=== PATIENT | female | born 1960 | race Caucasian/White ===

== ENCOUNTER → 2016-05-13 | Outpatient (CLI) | payer MEDICARE ==
--- NOTE | 2016-05-13 09:30 | REP ---
Clinical: Acute shortness of breath . Comparison: 11/07/2013 . Technique: PA and lateral. Findings: The mediastinum and cardiac silhouette are normal. The lung taylor are clear and without acute consolidation, effusion, or pneumothorax. The skeletal structures are intact and normal. Impression: 1. No acute cardiopulmonary process.
== END ==
LOC: M CLY 08:51
PROVIDERS: ATTEND Physician Assistant
DX: J22 Unspecified acute lower respiratory infection (principal)

== ENCOUNTER → 2016-05-18 | Outpatient (REF) | payer MEDICARE ==
[2016-05-18 18:42] LABS: ALBUMIN 3.3 GM/DL (3.2-5.2); ALBUMIN/GLOBULIN RATIO 0.73 (1.00-1.93); ALKALINE PHOSPHATASE 135 U/L (45-117); ALT/SGPT 15 U/L (12-78); ANION GAP 7 MEQ/L (8-16); AST/SGOT 11 U/L (15-37); BILIRUBIN,TOTAL 0.3 MG/DL (0.2-1.0); BLOOD UREA NITROGEN 11 MG/DL (7-18); CALCIUM LEVEL 8.3 MG/DL (8.5-10.1); CARBON DIOXIDE LEVEL 26 MEQ/L (21-32); CHLORIDE LEVEL 106 MEQ/L (98-107); CHOLESTEROL LEVEL 205 MG/DL (<200); GLOMERULAR FILTRATION RATE > 60.0 (>51); GLUCOSE, FASTING 77 MG/DL (70-105); POTASSIUM SERUM 4.4 MEQ/L (3.5-5.1); SODIUM LEVEL 139 MEQ/L (136-145); TOTAL PROTEIN 7.8 GM/DL (6.4-8.2); TRIGLYCERIDES LEVEL 99 MG/DL (<150)
[2016-05-18 19:13] LABS: BASO # 0.1 K/mm3 (0.0-0.2); BASO % 1.4 % (0.0-1.0); EOS # 0.2 K/mm3 (0.0-0.50); EOS % 3.1 % (0.0-3.0); LARGE UNSTAINED CELL # 0.1 K/mm3 (0.0-0.4); LARGE UNSTAINED CELL % 1.9 % (0.0-4.0); LYMPH # 1.7 K/mm3 (1.5-4.5); LYMPH % 26.2 % (24.0-44.0); MEAN CORPUSCULAR HEMOGLOBIN 31.3 pg (27.0-33.0); MEAN CORPUSCULAR HGB CONC 32.9 g/dl (32.0-36.5); MEAN CORPUSCULAR VOLUME 95.2 fl (80.0-96.0); MONO # 0.3 K/mm3 (0.0-0.8); MONO % 5.2 % (0.0-5.0); NEUTROPHILS # 3.7 K/mm3 (1.8-7.7); NEUTROPHILS % 62.2 % (36.0-66.0); PLATELET COUNT, AUTOMATED 258 k/mm3 (150-450)
== END ==
LOC: M SFHCCAPE 07:33
PROVIDERS: ATTEND Physician Assistant
DX: E78.2 Mixed hyperlipidemia (principal)

== ENCOUNTER → 2016-06-29 | Outpatient (CLI) | payer MEDICARE ==
--- NOTE | 2016-06-29 11:20 | REPMRS ---
Patient History The patient states she had a clinical breast exam in June 2016. Patient is postmenopausal. No known family history of cancer. Digital Mammo Screening Bilat: June 29, 2016 - Exam #: [id number] Bilateral CC and MLO view(s) were taken. Technologist: Rachel Huber, Technologist No prior studies available for comparison. FINDINGS: There are scattered fibroglandular densities. There is no evidence of dominant mass, architectural distortion, or clustered microcalcification typical of malignancy. ASSESSMENT: BI-RADS/ACR category 1 mammogram. Negative. Recommendation Routine screening mammogram of both breasts in 1 year (for women over age 40). This mammogram was interpreted with the aid of an FDA-approved computer-aided dectection system. Electronically Signed By: Fabio Bravo MD 06/29/16 9502
== END ==
LOC: M RAD 09:58
PROVIDERS: ATTEND Physician Assistant
DX: Z12.31 Encounter for screening mammogram for malignant neoplasm of breast (principal)

== ENCOUNTER → 2016-07-19 | Outpatient (CLI) | payer MEDICARE ==
--- NOTE | 2016-07-19 11:44 | REP ---
Clinical: Lung screening. History smoking. Technique: Axial, noncontrast low-dose imaging from the thoracic inlet to the upper abdomen using lung screening technique. Comparison: Chest CT dated 11/07/2013. Findings: Mild emphysematous changes are suggested. Small focal linear scarring in the lingula again noted. No significant pulmonary parenchymal consolidation, nodule or mass lesion. No pleural effusion. Mediastinum is grossly normal. Impression: Lung-RADS category I-S. Benign findings and no significant nodule with mild to moderate emphysematous changes. Signed by Chalo Bills MD 07/19/2016 11:36 A
== END ==
LOC: M RAD 11:03
PROVIDERS: ATTEND Physician Assistant
DX: Z12.2 Encounter for screening for malignant neoplasm of respiratory organs (principal); F17.210 Nicotine dependence, cigarettes, uncomplicated; J43.9 Emphysema, unspecified

== ENCOUNTER → 2016-10-04 | Outpatient (REF) | payer MEDICARE | LOC: M SFHCCAPE 11:48 | PROVIDERS: ATTEND Physician Assistant | DX: Z01.419 Encounter for gynecological examination (general) (routine) without abnormal findings (principal); M25.562 Pain in left knee; M71.22 Synovial cyst of popliteal space [Baker], left knee | CPT/HCPCS: 87624; G0123; G0463 ==

== ENCOUNTER → 2017-03-17 | Outpatient (CLI) | payer MEDICARE ==
--- NOTE | 2017-03-17 11:21 | REP ---
Clinical: Acute bronchitis . Comparison: 05/13/2016 . Technique: PA and lateral. Findings: The mediastinum and cardiac silhouette are normal. The lung taylor are clear and without acute consolidation, effusion, or pneumothorax. The skeletal structures are intact and normal. Impression: 1. No acute cardiopulmonary process. Signed by Chalo Bills MD 03/17/2017 11:11 A
== END ==
LOC: M WUC 10:44
PROVIDERS: ATTEND Physician Assistant
DX: J20.9 Acute bronchitis, unspecified (principal)

== ENCOUNTER 2017-09-12 12:41 | Emergency (ER) | payer MEDICARE ==
[2017-09-12 15:33] LABS: BASO % 0.6 % (0.0-1.0); EOS # 0.2 10^3/uL (0.0-0.50); EOS % 3.3 % (0.0-3.0); HEMATOCRIT 37.3 % (36.0-47.0); HEMOGLOBIN 12.9 g/dl (12.0-15.5); IMMATURE GRANULOCYTE % 0.2 % (0-3.0); LYMPH # 1.7 10^3/uL (1.5-4.5); LYMPH % 33.8 % (24.0-44.0); MEAN CORPUSCULAR HEMOGLOBIN 31.8 pg (27.0-33.0); MEAN CORPUSCULAR HGB CONC 34.6 g/dl (32.0-36.5); MEAN CORPUSCULAR VOLUME 91.9 fl (80.0-96.0); MONO # 0.4 10^3/uL (0.0-0.8); MONO % 6.9 % (0.0-5.0); NEUTROPHILS # 2.8 10^3/uL (1.8-7.7); NEUTROPHILS % 55.2 % (36.0-66.0); PLATELET COUNT, AUTOMATED 268 10^3/uL (150-450); RED BLOOD COUNT 4.06 10^6/uL (4.00-5.40); RED CELL DISTRIBUTION WIDTH 12.9 % (11.5-14.5); WHITE BLOOD COUNT 5.1 10^3/uL (4.0-10.0)
[2017-09-12 15:45] LABS: INR 0.97
[2017-09-12 15:47] LABS: PARTIAL THROMBOPLASTIN TIME 26.5 SECONDS (26.8-37.9)
[2017-09-12 16:03] LABS: ALBUMIN 3.5 GM/DL (3.2-5.2); ALBUMIN/GLOBULIN RATIO 0.83 (1.00-1.93); ALKALINE PHOSPHATASE 124 U/L (45-117); ALT/SGPT 14 U/L (12-78); ANION GAP 6 MEQ/L (8-16); AST/SGOT 12 U/L (7-37); BILIRUBIN,DIRECT < 0.1 MG/DL (0.0-0.2); BILIRUBIN,TOTAL 0.3 MG/DL (0.2-1.0); BLOOD UREA NITROGEN 8 MG/DL (7-18); CALCIUM LEVEL 8.5 MG/DL (8.5-10.1); CARBON DIOXIDE LEVEL 26 MEQ/L (21-32); CHLORIDE LEVEL 110 MEQ/L (98-107); CK-MB VALUE MASS 1.2 NG/ML (<3.6); CPK CREATINE PHOSPHOKINASE 52 U/L (26-192); GLOMERULAR FILTRATION RATE > 60.0 (>51); GLUCOSE, FASTING 78 MG/DL (70-100); SODIUM LEVEL 142 MEQ/L (136-145); TOTAL PROTEIN 7.7 GM/DL (6.4-8.2); TROPONIN I < 0.02 NG/ML (< 0.10)
[2017-09-12] MEDS ORDERED: ISOVUE-370 76% 100ML VIAL (Q9967) As Ordered (16:25)
[2017-09-13 11:52] LABS: BEDSIDE GLUCOSE 87 MG/DL (70-105)
== END 2017-09-12 18:04 | disposition home or self-care (01) ==
LOC: M ED 12:41
DX: J43.9 Emphysema, unspecified (principal); M71.22 Synovial cyst of popliteal space [Baker], left knee; M06.9 Rheumatoid arthritis, unspecified; F17.200 Nicotine dependence, unspecified, uncomplicated; Z98.890 Other specified postprocedural states; Z79.899 Other long term (current) drug therapy
CPT/HCPCS: Q9967

== ENCOUNTER → 2017-12-22 | Outpatient (REF) | payer MEDICARE ==
[2017-12-22 17:47] LABS: BASO % 0.4 % (0.0-1.0); EOS # 0.2 10^3/uL (0.0-0.50); HEMATOCRIT 35.9 % (36.0-47.0); IMMATURE GRANULOCYTE % 0.2 % (0-3.0); LYMPH # 1.7 10^3/uL (1.5-4.5); LYMPH % 34.9 % (24.0-44.0); MEAN CORPUSCULAR HEMOGLOBIN 31.7 pg (27.0-33.0); MEAN CORPUSCULAR HGB CONC 33.4 g/dl (32.0-36.5); MEAN CORPUSCULAR VOLUME 94.7 fl (80.0-96.0); MONO # 0.4 10^3/uL (0.0-0.8); MONO % 7.2 % (0.0-5.0); NEUTROPHILS # 2.7 10^3/uL (1.8-7.7); NEUTROPHILS % 54.3 % (36.0-66.0); PLATELET COUNT, AUTOMATED 289 10^3/uL (150-450); RED BLOOD COUNT 3.79 10^6/uL (4.00-5.40); RED CELL DISTRIBUTION WIDTH 12.9 % (11.5-14.5)
[2017-12-27 10:17] LABS: ASPERGILLUS FUMIGATUS AB Negative (Negative); AUREOBASIDIUM PULLULANS Negative (Negative); MICROPOLYSPORA FAENI AB Negative (Negative); PIGEON SERUM AB Negative (Negative); THERMOACTINOMYCES SACCHARI Negative (Negative); THERMOACTINOMYCES VULGARIS Negative (Negative)
== END ==
LOC: M LAB REF 16:51
DX: J43.9 Emphysema, unspecified (principal)
CPT/HCPCS: 86606

== ENCOUNTER → 2018-01-15 | Outpatient (CLI) | payer MEDICARE | LOC: M SLEEP 20:07 | DX: G47.33 Obstructive sleep apnea (adult) (pediatric) (principal); G47.61 Periodic limb movement disorder | CPT/HCPCS: 95810 ==

== ENCOUNTER → 2018-01-31 | Outpatient (REF) | payer MEDICARE ==
[2018-01-31 18:42] LABS: IMMUNOGLOBULIN G 1650 MG/DL (681-1648); IMMUNOGLOBULIN M 182 MG/DL (40-230)
[2018-02-06 00:07] LABS: A1A FOR PHENOTYPE 159 mg/dL (90-200)
== END ==
LOC: M LAB REF 17:11
DX: J43.9 Emphysema, unspecified (principal)
CPT/HCPCS: 82103

== ENCOUNTER → 2018-03-19 | Outpatient (REF) | payer MEDICARE ==
[2018-03-19 17:04] LABS: BASO % 0.7 % (0.0-1.0); EOS # 0.2 10^3/uL (0.0-0.50); HEMATOCRIT 38.7 % (36.0-47.0); HEMOGLOBIN 12.9 g/dl (12.0-15.5); IMMATURE GRANULOCYTE % 0.2 % (0-3.0); LYMPH # 1.8 10^3/uL (1.5-4.5); LYMPH % 32.6 % (24.0-44.0); MEAN CORPUSCULAR HEMOGLOBIN 31.5 pg (27.0-33.0); MEAN CORPUSCULAR HGB CONC 33.3 g/dl (32.0-36.5); MEAN CORPUSCULAR VOLUME 94.6 fl (80.0-96.0); MONO # 0.4 10^3/uL (0.0-0.8); MONO % 6.6 % (0.0-5.0); NEUTROPHILS # 3.2 10^3/uL (1.8-7.7); NEUTROPHILS % 56.9 % (36.0-66.0); PLATELET COUNT, AUTOMATED 278 10^3/uL (150-450); RED BLOOD COUNT 4.09 10^6/uL (4.00-5.40); RED CELL DISTRIBUTION WIDTH 13.1 % (11.5-14.5); WHITE BLOOD COUNT 5.6 10^3/uL (4.0-10.0)
[2018-03-19 17:18] LABS: ALBUMIN 3.5 GM/DL (3.2-5.2); ALBUMIN/GLOBULIN RATIO 0.81 (1.00-1.93); ALKALINE PHOSPHATASE 138 U/L (45-117); ALT/SGPT 18 U/L (12-78); ANION GAP 6 MEQ/L (8-16); AST/SGOT 9 U/L (7-37); BILIRUBIN,TOTAL 0.3 MG/DL (0.2-1.0); BLOOD UREA NITROGEN 10 MG/DL (7-18); C REACTIVE PROTEIN QUANTITATIV 1.19 MG/DL (0.00-0.30); CALCIUM LEVEL 8.7 MG/DL (8.5-10.1); CARBON DIOXIDE LEVEL 27 MEQ/L (21-32); CHLORIDE LEVEL 105 MEQ/L (98-107); GLOMERULAR FILTRATION RATE > 60.0 (>51); GLUCOSE, FASTING 84 MG/DL (70-100); POTASSIUM SERUM 3.9 MEQ/L (3.5-5.1); SODIUM LEVEL 138 MEQ/L (136-145); TOTAL PROTEIN 7.8 GM/DL (6.4-8.2); URIC ACID 2.7 MG/DL (2.6-6.0)
[2018-03-19 18:11] LABS: ERYTHROCYTE SEDIMENTATION RATE 56 mm/hr (0-30)
== END ==
LOC: M SFHCLERA 11:56
DX: M05.79 Rheumatoid arthritis with rheumatoid factor of multiple sites without organ or systems involvement (principal)
CPT/HCPCS: 84550

== ENCOUNTER → 2018-03-19 | Outpatient (CLI) | payer MEDICARE | LOC: M LRY 12:27 | DX: M25.762 Osteophyte, left knee (principal); M19.041 Primary osteoarthritis, right hand; M19.042 Primary osteoarthritis, left hand; M05.79 Rheumatoid arthritis with rheumatoid factor of multiple sites without organ or systems involvement | CPT/HCPCS: 73080; 84550 ==

== ENCOUNTER → 2018-04-11 | Outpatient (REF) | payer MEDICARE ==
[2018-04-11 18:35] LABS: BASO % 0.6 % (0.0-1.0); EOS # 0.1 10^3/uL (0.0-0.50); EOS % 1.9 % (0.0-3.0); HEMATOCRIT 40.7 % (36.0-47.0); HEMOGLOBIN 13.5 g/dl (12.0-15.5); IMMATURE GRANULOCYTE % 0.3 % (0-3.0); LYMPH # 1.9 10^3/uL (1.5-4.5); LYMPH % 28.7 % (24.0-44.0); MEAN CORPUSCULAR HEMOGLOBIN 31.9 pg (27.0-33.0); MEAN CORPUSCULAR HGB CONC 33.2 g/dl (32.0-36.5); MEAN CORPUSCULAR VOLUME 96.2 fl (80.0-96.0); MONO # 0.6 10^3/uL (0.0-0.8); MONO % 8.2 % (0.0-5.0); NEUTROPHILS % 60.3 % (36.0-66.0); PLATELET COUNT, AUTOMATED 263 10^3/uL (150-450); RED BLOOD COUNT 4.23 10^6/uL (4.00-5.40); RED CELL DISTRIBUTION WIDTH 13.7 % (11.5-14.5); WHITE BLOOD COUNT 6.7 10^3/uL (4.0-10.0)
[2018-04-11 19:00] LABS: ALBUMIN 3.6 GM/DL (3.2-5.2); ALBUMIN/GLOBULIN RATIO 0.92 (1.00-1.93); ALKALINE PHOSPHATASE 108 U/L (45-117); ALT/SGPT 18 U/L (12-78); ANION GAP 5 MEQ/L (8-16); AST/SGOT 7 U/L (7-37); BILIRUBIN,TOTAL 0.3 MG/DL (0.2-1.0); BLOOD UREA NITROGEN 14 MG/DL (7-18); C REACTIVE PROTEIN QUANTITATIV 0.36 MG/DL (0.00-0.30); CALCIUM LEVEL 8.5 MG/DL (8.5-10.1); CARBON DIOXIDE LEVEL 31 MEQ/L (21-32); CHLORIDE LEVEL 105 MEQ/L (98-107); CREATININE FOR GFR 0.85 MG/DL (0.55-1.30); GAMMA GLUTAMYLTRANSPEPTIDASE 16 U/L (5-55); GLOMERULAR FILTRATION RATE > 60.0 (>51); GLUCOSE, FASTING 70 MG/DL (70-100); POTASSIUM SERUM 4.4 MEQ/L (3.5-5.1); SODIUM LEVEL 141 MEQ/L (136-145); TOTAL PROTEIN 7.5 GM/DL (6.4-8.2)
[2018-04-11 20:15] LABS: ERYTHROCYTE SEDIMENTATION RATE 32 mm/hr (0-30)
== END ==
LOC: M SFHCPLAZ 15:27
DX: M05.79 Rheumatoid arthritis with rheumatoid factor of multiple sites without organ or systems involvement (principal)
CPT/HCPCS: 82977

== ENCOUNTER → 2018-06-12 | Outpatient (REF) | payer MEDICARE ==
[~2018-06-12] MED LIST: MELO15TA28 PO; METH2.5T48 PO; VENTAER INH
[2018-06-12 17:09] LABS: IMMUNOGLOBULIN G 1850 MG/DL (681-1648)
[2018-06-14 13:58] LABS: ALBUMIN % 48.2 % (55.8-66.1); ALPHA-1-GLOBULIN % 4.4 % (2.9-4.9); ALPHA-2-GLOBULINS % 10.2 % (7.1-11.8); BETA-1-GLOBULINS % 6.4 % (4.7-7.2); BETA-2-GLOBULINS % 7.3 % (3.2-6.5); GAMMA GLOBULIN % 23.5 % (11.1-18.8)
[2018-06-14 13:59] LABS: ALBUMIN 3.86 GM/DL (3.29-5.55); ALPHA-1-GLOBULINS 0.35 GM/DL (0.17-0.41); ALPHA-2-GLOBULINS 0.82 GM/DL (0.42-0.99); BETA-1-GLOBULINS 0.51 GM/DL (0.28-0.60); BETA-2-GLOBULINS 0.58 GM/DL (0.19-0.55); GAMMA GLOBULINS 1.88 GM/DL (0.65-1.58)
[2018-06-19 08:06] LABS: IgG SERUM (part of Subclasses) 1677 mg/dL (700-1600); IgG Subclass 1 1010 mg/dL (248-810); IgG Subclass 2 270 mg/dL (130-555); IgG Subclass 3 68 mg/dL (15-102); IgG Subclass 4 71 mg/dL (2-96)
== END ==
LOC: M LABDRAWP 13:53
PROVIDERS: ATTEND Internal Medicine Pulmonary Disease
DX: J43.9 Emphysema, unspecified (principal)
CPT/HCPCS: 20610; 36415; 80053; 82784; 82787; 84165; 85025; 85652; 86140; G0463; J1040

== ENCOUNTER → 2018-06-12 | Outpatient (REF) | payer MEDICARE ==
[2018-06-12 16:40] LABS: BASO % 0.3 % (0.0-1.0); EOS # 0.2 10^3/uL (0.0-0.50); EOS % 2.2 % (0.0-3.0); HEMATOCRIT 36.4 % (36.0-47.0); HEMOGLOBIN 12.3 g/dl (12.0-15.5); LYMPH # 1.7 10^3/uL (1.5-4.5); LYMPH % 24.5 % (24.0-44.0); MEAN CORPUSCULAR HEMOGLOBIN 31.4 pg (27.0-33.0); MEAN CORPUSCULAR HGB CONC 33.8 g/dl (32.0-36.5); MEAN CORPUSCULAR VOLUME 92.9 fl (80.0-96.0); MONO # 0.5 10^3/uL (0.0-0.8); MONO % 7.5 % (0.0-5.0); NEUTROPHILS # 4.4 10^3/uL (1.8-7.7); NEUTROPHILS % 65.4 % (36.0-66.0); PLATELET COUNT, AUTOMATED 309 10^3/uL (150-450); RED BLOOD COUNT 3.92 10^6/uL (4.00-5.40); WHITE BLOOD COUNT 6.8 10^3/uL (4.0-10.0)
[2018-06-12 16:59] LABS: ALBUMIN 3.6 GM/DL (3.2-5.2); ALT/SGPT 14 U/L (12-78); BILIRUBIN,TOTAL 0.2 MG/DL (0.2-1.0); BLOOD UREA NITROGEN 10 MG/DL (7-18); C REACTIVE PROTEIN QUANTITATIV 1.48 MG/DL (0.00-0.30); CALCIUM LEVEL 8.6 MG/DL (8.5-10.1); CARBON DIOXIDE LEVEL 29 MEQ/L (21-32); CHLORIDE LEVEL 103 MEQ/L (98-107); CREATININE FOR GFR 0.61 MG/DL (0.55-1.30); GLOMERULAR FILTRATION RATE > 60.0 (>51); GLUCOSE, FASTING 75 MG/DL (70-100); POTASSIUM SERUM 3.6 MEQ/L (3.5-5.1); SODIUM LEVEL 139 MEQ/L (136-145); TOTAL PROTEIN 7.9 GM/DL (6.4-8.2)
[2018-06-12 17:06] LABS: ERYTHROCYTE SEDIMENTATION RATE 70 mm/hr (0-30)
== END ==
LOC: M SFHCPLAZ 13:44
PROVIDERS: ATTEND Internal Medicine Rheumatology
DX: M05.79 Rheumatoid arthritis with rheumatoid factor of multiple sites without organ or systems involvement (principal)

== ENCOUNTER → 2018-08-27 | Outpatient (REF) | payer MEDICARE ==
[2018-08-27 17:54] LABS: BASO % 0.4 % (0.0-1.0); EOS # 0.1 10^3/uL (0.0-0.50); HEMATOCRIT 36.6 % (36.0-47.0); HEMOGLOBIN 12.3 g/dl (12.0-15.5); LYMPH # 1.8 10^3/uL (1.5-4.5); LYMPH % 26.9 % (24.0-44.0); MEAN CORPUSCULAR HEMOGLOBIN 31.9 pg (27.0-33.0); MEAN CORPUSCULAR HGB CONC 33.6 g/dl (32.0-36.5); MEAN CORPUSCULAR VOLUME 95.1 fl (80.0-96.0); MONO # 0.5 10^3/uL (0.0-0.8); MONO % 6.9 % (0.0-5.0); NEUTROPHILS # 4.3 10^3/uL (1.8-7.7); NEUTROPHILS % 63.5 % (36.0-66.0); PLATELET COUNT, AUTOMATED 257 10^3/uL (150-450); RED BLOOD COUNT 3.85 10^6/uL (4.00-5.40); WHITE BLOOD COUNT 6.8 10^3/uL (4.0-10.0)
[2018-08-27 18:04] LABS: ALBUMIN 3.1 GM/DL (3.2-5.2); ALT/SGPT 14 U/L (12-78); BILIRUBIN,TOTAL 0.3 MG/DL (0.2-1.0); BLOOD UREA NITROGEN 10 MG/DL (7-18); CALCIUM LEVEL 8.1 MG/DL (8.5-10.1); CARBON DIOXIDE LEVEL 25 MEQ/L (21-32); CHLORIDE LEVEL 110 MEQ/L (98-107); CHOLESTEROL LEVEL 180 MG/DL (<200); CHOLESTEROL RISK RATIO 5.294 (<5); CREATININE FOR GFR 0.63 MG/DL (0.55-1.30); GLOMERULAR FILTRATION RATE > 60.0 (>51); GLUCOSE, FASTING 79 MG/DL (70-100); HDL CHOLESTEROL 34 MG/DL (>40); LDL CHOLESTEROL 124 MG/DL (<100); NON-HDL-C 146 MG/DL; POTASSIUM SERUM 4.3 MEQ/L (3.5-5.1); SODIUM LEVEL 140 MEQ/L (136-145); TOTAL 25(OH) VITAMIN D 16.7 NG/ML (30.0-100.0); TRIGLYCERIDES LEVEL 109 MG/DL (<150)
== END ==
LOC: M SFHCCAPE 07:29
PROVIDERS: ATTEND Physician Assistant
DX: E78.2 Mixed hyperlipidemia (principal)

== ENCOUNTER → 2018-09-04 | Outpatient (REF) | payer MEDICARE ==
[2018-09-04 16:56] LABS: C REACTIVE PROTEIN QUANTITATIV 1.6 MG/DL (0.00-0.30); URIC ACID 3.3 MG/DL (2.6-6.0)
== END ==
LOC: M SFHCPLAZ 14:09
PROVIDERS: ATTEND Internal Medicine Rheumatology
DX: M05.79 Rheumatoid arthritis with rheumatoid factor of multiple sites without organ or systems involvement (principal)

== ENCOUNTER → 2018-09-04 | Outpatient (CLI) | payer MEDICARE | LOC: M WHC 12:51 | PROVIDERS: ATTEND Nurse Practitioner Women's Health | DX: Z13.820 Encounter for screening for osteoporosis (principal); E28.319 Asymptomatic premature menopause ==

== ENCOUNTER → 2018-09-19 | Outpatient (CLI) | payer MEDICARE ==
--- NOTE | 2018-09-19 15:50 | REP ---
Clinical: Lung screening. History of nicotine dependence. Comparison: 09/12/2017 Technique: Axial low-dose noncontrast images from the thoracic inlet to the upper abdomen using lung screening technique. Findings: The lung taylor are well-aerated. Mild chronic emphysematous changes are suggested. No consolidation, significant nodule or mass lesion is appreciated. No pleural effusion/reaction or pneumothorax. Tracheobronchial tree is patent. Mediastinum demonstrates mild atherosclerotic changes of the coronary arteries without cardiomegaly. Impression: Lung-RADS category I. No nodule or suspicious abnormality. Mild chronic emphysematous changes. Electronically Signed by Chalo Bills MD 09/19/2018 03:42 P
== END ==
LOC: M RAD 10:15
PROVIDERS: ATTEND Internal Medicine Pulmonary Disease
DX: F17.218 Nicotine dependence, cigarettes, with other nicotine-induced disorders (principal)

== ENCOUNTER → 2018-10-22 | Outpatient (CLI) | payer MEDICARE | LOC: M WUC 09:23 | PROVIDERS: ATTEND Internal Medicine Pulmonary Disease | DX: D47.2 Monoclonal gammopathy (principal) ==

== ENCOUNTER → 2019-01-08 | Outpatient (CLI) | payer MEDICARE ==
[~2019-01-08] MED LIST changes: +FLUO20CA19 PO; +FOLI1TAB11 PO; +PRED10TA2
[2019-01-08 13:25] LABS: BASO % 0.7 % (0.0-1.0); EOS # 0.1 10^3/uL (0.0-0.5); EOS % 1.9 % (0.0-3.0); HEMATOCRIT 41.1 % (36.0-47.0); HEMOGLOBIN 13.6 g/dl (12.0-15.5); LYMPH # 1.4 10^3/uL (1.5-5.0); LYMPH % 23.4 % (24.0-44.0); MEAN CORPUSCULAR HEMOGLOBIN 31.8 pg (27.0-33.0); MEAN CORPUSCULAR HGB CONC 33.1 g/dl (32.0-36.5); MONO # 0.4 10^3/uL (0.0-0.8); MONO % 7.3 % (0.0-5.0); NEUTROPHILS # 3.9 10^3/uL (1.5-8.5); NEUTROPHILS % 66.4 % (36.0-66.0); PLATELET COUNT, AUTOMATED 262 10^3/uL (150-450); RED BLOOD COUNT 4.28 10^6/uL (4.00-5.40); WHITE BLOOD COUNT 5.9 10^3/uL (4.0-10.0)
[2019-01-08 13:40] LABS: ALBUMIN 3.5 GM/DL (3.2-5.2); ALT/SGPT 14 U/L (12-78); BILIRUBIN,TOTAL 0.3 MG/DL (0.2-1.0); BLOOD UREA NITROGEN 9 MG/DL (7-18); C REACTIVE PROTEIN QUANTITATIV 0.63 MG/DL (0.00-0.30); CALCIUM LEVEL 8.9 MG/DL (8.5-10.1); CARBON DIOXIDE LEVEL 27 MEQ/L (21-32); CHLORIDE LEVEL 107 MEQ/L (98-107); CREATININE FOR GFR 0.63 MG/DL (0.55-1.30); GLOMERULAR FILTRATION RATE > 60.0 (>51); GLUCOSE, FASTING 84 MG/DL (70-100); POTASSIUM SERUM 4.2 MEQ/L (3.5-5.1); SODIUM LEVEL 140 MEQ/L (136-145); TOTAL PROTEIN 7.8 GM/DL (6.4-8.2)
[2019-01-08 13:53] LABS: ERYTHROCYTE SEDIMENTATION RATE 44 mm/hr (0-30)
== END ==
LOC: M WUC 08:48
PROVIDERS: ATTEND Internal Medicine Rheumatology
DX: M05.79 Rheumatoid arthritis with rheumatoid factor of multiple sites without organ or systems involvement (principal)
CPT/HCPCS: 36415; 80053; 85025; 85652; 86140; G0463

== ENCOUNTER → 2019-02-26 | Outpatient (REF) | payer MEDICARE ==
[2019-02-26 16:37] LABS: ALT/SGPT 14 U/L (12-78); BLOOD UREA NITROGEN 10 MG/DL (7-18); CALCIUM LEVEL 8.7 MG/DL (8.5-10.1); CARBON DIOXIDE LEVEL 26 MEQ/L (21-32); CHLORIDE LEVEL 112 MEQ/L (98-107); CREATININE FOR GFR 0.66 MG/DL (0.55-1.30); GLOMERULAR FILTRATION RATE > 60.0 (>51); GLUCOSE, FASTING 83 MG/DL (70-100); POTASSIUM SERUM 4.1 MEQ/L (3.5-5.1); SODIUM LEVEL 141 MEQ/L (136-145)
[2019-02-26 16:38] LABS: ALBUMIN 3.3 GM/DL (3.2-5.2); BILIRUBIN,TOTAL 0.3 MG/DL (0.2-1.0); C REACTIVE PROTEIN QUANTITATIV 0.93 MG/DL (0.00-0.30); TOTAL PROTEIN 7.1 GM/DL (6.4-8.2)
[2019-02-26 16:45] LABS: CHOLESTEROL RISK RATIO 5.416 (<5); THYROID STIMULATING HORMONE 2.68 uIU/ML (0.358-3.740)
[2019-02-26 17:00] LABS: BASO % 0.4 % (0.0-1.0); EOS # 0.1 10^3/uL (0.0-0.5); EOS % 2.1 % (0.0-3.0); HEMATOCRIT 37.8 % (36.0-47.0); HEMOGLOBIN 12.7 g/dl (12.0-15.5); LYMPH # 1.3 10^3/uL (1.5-5.0); LYMPH % 22.4 % (24.0-44.0); MEAN CORPUSCULAR HEMOGLOBIN 31.6 pg (27.0-33.0); MEAN CORPUSCULAR HGB CONC 33.6 g/dl (32.0-36.5); MONO # 0.4 10^3/uL (0.0-0.8); NEUTROPHILS # 3.9 10^3/uL (1.5-8.5); NEUTROPHILS % 67.9 % (36.0-66.0); PLATELET COUNT, AUTOMATED 275 10^3/uL (150-450); RED BLOOD COUNT 4.02 10^6/uL (4.00-5.40); WHITE BLOOD COUNT 5.7 10^3/uL (4.0-10.0)
[2019-02-26 18:40] LABS: ERYTHROCYTE SEDIMENTATION RATE 45 mm/hr (0-30)
== END ==
LOC: M SFHCCAPE 07:29
PROVIDERS: ATTEND Physician Assistant
DX: M05.79 Rheumatoid arthritis with rheumatoid factor of multiple sites without organ or systems involvement (principal); E78.2 Mixed hyperlipidemia

== ENCOUNTER → 2019-09-26 | Outpatient (REF) | payer MEDICARE ==
[~2019-09-26] MED LIST changes: -FLUO20CA19 PO; +FLUO20CA22 PO
[2019-09-26 20:12] LABS: BASO % 0.5 % (0.0-1.0); EOS # 0.1 10^3/uL (0.0-0.5); EOS % 1.8 % (0.0-3.0); HEMATOCRIT 38.6 % (36.0-47.0); HEMOGLOBIN 12.9 g/dl (12.0-15.5); LYMPH # 1.1 10^3/uL (1.5-5.0); LYMPH % 16.7 % (24.0-44.0); MEAN CORPUSCULAR HEMOGLOBIN 31.3 pg (27.0-33.0); MEAN CORPUSCULAR HGB CONC 33.4 g/dl (32.0-36.5); MEAN CORPUSCULAR VOLUME 93.7 fl (80.0-96.0); MONO # 0.4 10^3/uL (0.0-0.8); MONO % 6.8 % (0.0-5.0); NEUTROPHILS # 4.8 10^3/uL (1.5-8.5); NEUTROPHILS % 73.9 % (36.0-66.0); PLATELET COUNT, AUTOMATED 292 10^3/uL (150-450); RED BLOOD COUNT 4.12 10^6/uL (4.00-5.40); WHITE BLOOD COUNT 6.5 10^3/uL (4.0-10.0)
[2019-09-26 20:43] LABS: ALBUMIN 3.6 GM/DL (3.2-5.2); ALT/SGPT 21 U/L (12-78); BILIRUBIN,TOTAL 0.3 MG/DL (0.2-1.0); BLOOD UREA NITROGEN 8 MG/DL (7-18); CALCIUM LEVEL 8.7 MG/DL (8.5-10.1); CARBON DIOXIDE LEVEL 23 MEQ/L (21-32); CHLORIDE LEVEL 108 MEQ/L (98-107); CREATININE FOR GFR 0.56 MG/DL (0.55-1.30); GLOMERULAR FILTRATION RATE > 60.0 (>51); GLUCOSE, FASTING 80 MG/DL (70-100); POTASSIUM SERUM 3.9 MEQ/L (3.5-5.1); SODIUM LEVEL 141 MEQ/L (136-145); TOTAL PROTEIN 7.6 GM/DL (6.4-8.2)
== END ==
LOC: M SFHCCLAY 10:14
PROVIDERS: ATTEND Physician Assistant
DX: R19.7 Diarrhea, unspecified (principal); D89.9 Disorder involving the immune mechanism, unspecified; Z11.59 Encounter for screening for other viral diseases
CPT/HCPCS: 80053; 84443; 85025; G0463; U0003

== ENCOUNTER → 2019-09-27 | Outpatient (REF) | payer MEDICARE | LOC: M SFHCCLAY 15:44 | PROVIDERS: ATTEND Physician Assistant | DX: R19.7 Diarrhea, unspecified (principal) ==

== ENCOUNTER → 2019-10-28 | Outpatient (REF) | payer MEDICARE ==
[2019-10-28 12:56] LABS: BASO % 0.7 % (0.0-1.0); EOS # 0.1 10^3/uL (0.0-0.5); EOS % 2.3 % (0.0-3.0); HEMATOCRIT 38.5 % (36.0-47.0); HEMOGLOBIN 12.7 g/dl (12.0-15.5); LYMPH # 1.6 10^3/uL (1.5-5.0); LYMPH % 26.7 % (24.0-44.0); MEAN CORPUSCULAR VOLUME 93.9 fl (80.0-96.0); MONO # 0.5 10^3/uL (0.0-0.8); NEUTROPHILS # 3.8 10^3/uL (1.5-8.5); PLATELET COUNT, AUTOMATED 318 10^3/uL (150-450); WHITE BLOOD COUNT 6.1 10^3/uL (4.0-10.0)
[2019-10-28 13:09] LABS: ALBUMIN 3.3 GM/DL (3.2-5.2); ALT/SGPT 11 U/L (12-78); BILIRUBIN,TOTAL 0.5 MG/DL (0.2-1.0); BLOOD UREA NITROGEN 7 MG/DL (7-18); CARBON DIOXIDE LEVEL 27 MEQ/L (21-32); CHLORIDE LEVEL 109 MEQ/L (98-107); CHOLESTEROL LEVEL 201 MG/DL (<200); CHOLESTEROL RISK RATIO 5.742 (<5); CREATININE FOR GFR 0.61 MG/DL (0.55-1.30); GLOMERULAR FILTRATION RATE > 60.0 (>51); GLUCOSE, FASTING 84 MG/DL (70-100); HDL CHOLESTEROL 35 MG/DL (>40); LDL CHOLESTEROL 145 MG/DL (<100); NON-HDL-C 166 MG/DL; POTASSIUM SERUM 4.1 MEQ/L (3.5-5.1); SODIUM LEVEL 139 MEQ/L (136-145); TOTAL PROTEIN 7.4 GM/DL (6.4-8.2); TRIGLYCERIDES LEVEL 105 MG/DL (<150)
== END ==
LOC: M SFHCCLAY 08:02
PROVIDERS: ATTEND Physician Assistant
DX: E78.2 Mixed hyperlipidemia (principal); R74.8 Abnormal levels of other serum enzymes

== ENCOUNTER → 2019-11-12 | Outpatient (CLI) | payer MEDICARE ==
--- NOTE | 2019-11-12 11:31 | REP ---
REASON: History of rheumatoid arthritis. The lateral views shows pes planus. There is a significant hallux valgus deformity with moderate to severe asymmetric joint space narrowing involving the 1st metatarsophalangeal joint and seen in conjunction with marginal osteophytosis and subchondral cyst formation. There is some periarticular osteopenia. Rather symmetric appearing intradigital joint space narrowing is identified. Marginal erosions are seen involving the heads of all metatarsals. The bones are demineralized. There is no evidence of an acute fracture. IMPRESSION: Findings, as described above, are consistent with the patient's clinical diagnosis of rheumatoid arthritis. Electronically Signed by Rajeev Meehan DO 11/12/2019 04:03 P
== END ==
LOC: M CLY 09:00
PROVIDERS: ATTEND Internal Medicine
DX: M05.741 Rheumatoid arthritis with rheumatoid factor of right hand without organ or systems involvement (principal); R74.8 Abnormal levels of other serum enzymes

== ENCOUNTER → 2019-11-12 | Outpatient (REF) | payer MEDICARE ==
[2019-11-12 11:33] LABS: BASO % 0.7 % (0.0-1.0); EOS # 0.1 10^3/uL (0.0-0.5); EOS % 1.7 % (0.0-3.0); HEMATOCRIT 36.9 % (36.0-47.0); HEMOGLOBIN 12.3 g/dl (12.0-15.5); LYMPH # 1.3 10^3/uL (1.5-5.0); LYMPH % 22.1 % (24.0-44.0); MEAN CORPUSCULAR HEMOGLOBIN 31.2 pg (27.0-33.0); MEAN CORPUSCULAR HGB CONC 33.3 g/dl (32.0-36.5); MEAN CORPUSCULAR VOLUME 93.7 fl (80.0-96.0); MONO # 0.5 10^3/uL (0.0-0.8); MONO % 8.5 % (0.0-5.0); NEUTROPHILS % 66.7 % (36.0-66.0); PLATELET COUNT, AUTOMATED 298 10^3/uL (150-450); RED BLOOD COUNT 3.94 10^6/uL (4.00-5.40)
[2019-11-12 12:22] LABS: ALBUMIN 3.2 GM/DL (3.2-5.2); ALT/SGPT 14 U/L (12-78); BILIRUBIN,DIRECT < 0.1 MG/DL (0.0-0.2); BILIRUBIN,TOTAL 0.3 MG/DL (0.2-1.0); BLOOD UREA NITROGEN 10 MG/DL (7-18); C REACTIVE PROTEIN QUANTITATIV 1.89 MG/DL (0.00-0.30); CALCIUM LEVEL 8.8 MG/DL (8.5-10.1); CARBON DIOXIDE LEVEL 26 MEQ/L (21-32); CHLORIDE LEVEL 110 MEQ/L (98-107); CREATININE FOR GFR 0.67 MG/DL (0.55-1.30); GLOMERULAR FILTRATION RATE > 60.0 (>51); GLUCOSE, FASTING 97 MG/DL (70-100); POTASSIUM SERUM 3.8 MEQ/L (3.5-5.1); SODIUM LEVEL 142 MEQ/L (136-145); TOTAL PROTEIN 7.4 GM/DL (6.4-8.2)
[2019-11-13 12:01] LABS: HEPATITIS C VIRUS ABY INDEX 0.1 INDEX (<0.8); HIV 1&2 SCREEN CENTAUR NEGATIVE (NEGATIVE)
[2019-11-13 12:02] LABS: HEPATITIS B SURFACE ANTIGEN NEGATIVE (NEGATIVE)
[2019-11-15 02:08] LABS: ANTINUCLEAR ANTIBODIES DIRECT Negative (Negative); CYCLIC CITRULLINATED PEPTIDE > 250 units (0-19); HEPATITIS B CORE ANTIBODY IGG Negative (Negative)
== END ==
LOC: M LABDRAWC 11:06
PROVIDERS: ATTEND Internal Medicine
DX: R74.8 Abnormal levels of other serum enzymes (principal); M05.741 Rheumatoid arthritis with rheumatoid factor of right hand without organ or systems involvement

== ENCOUNTER → 2019-12-23 | Outpatient (REF) | payer MEDICARE ==
[2019-12-23 13:32] LABS: BASO # 0.1 10^3/uL (0.0-0.2); BASO % 0.7 % (0.0-1.0); EOS # 0.2 10^3/uL (0.0-0.5); EOS % 2.3 % (0.0-3.0); HEMATOCRIT 37.6 % (36.0-47.0); HEMOGLOBIN 12.3 g/dl (12.0-15.5); LYMPH # 1.3 10^3/uL (1.5-5.0); LYMPH % 18.6 % (24.0-44.0); MEAN CORPUSCULAR HEMOGLOBIN 30.8 pg (27.0-33.0); MEAN CORPUSCULAR HGB CONC 32.7 g/dl (32.0-36.5); MEAN CORPUSCULAR VOLUME 94.2 fl (80.0-96.0); MONO # 0.6 10^3/uL (0.0-0.8); MONO % 7.7 % (0.0-5.0); NEUTROPHILS % 70.4 % (36.0-66.0); PLATELET COUNT, AUTOMATED 310 10^3/uL (150-450); RED BLOOD COUNT 3.99 10^6/uL (4.00-5.40); WHITE BLOOD COUNT 7.1 10^3/uL (4.0-10.0)
[2019-12-23 14:11] LABS: ALBUMIN 3.3 GM/DL (3.2-5.2); ALT/SGPT 12 U/L (12-78); BILIRUBIN,TOTAL 0.4 MG/DL (0.2-1.0); BLOOD UREA NITROGEN 16 MG/DL (7-18); CALCIUM LEVEL 8.7 MG/DL (8.5-10.1); CARBON DIOXIDE LEVEL 27 MEQ/L (21-32); CHLORIDE LEVEL 106 MEQ/L (98-107); GLOMERULAR FILTRATION RATE > 60.0 (>51); GLUCOSE, FASTING 93 MG/DL (70-100); SODIUM LEVEL 139 MEQ/L (136-145); TOTAL PROTEIN 7.3 GM/DL (6.4-8.2)
== END ==
LOC: M LABDRAWC 12:31
PROVIDERS: ATTEND Internal Medicine
DX: M05.741 Rheumatoid arthritis with rheumatoid factor of right hand without organ or systems involvement (principal)

== ENCOUNTER → 2019-12-24 | Outpatient (CLI) | payer MEDICARE ==
--- NOTE | 2020-02-20 14:20 | REP ---
INDICATION: PERSONAL HX NICOTINE DEPENDENCE COMPARISON: 09/19/2018, 07/19/2016 TECHNIQUE: Axial noncontrast images from the thoracic inlet to the upper abdomen using low-dose lung screening technique (LDCT). FINDINGS: Examination is made available on PACs for evaluation on 02/20/2020. Moderate to significant emphysematous changes with mild bronchiectasis and minimal bibasilar scarring noted. There is a new 4 mm noncalcified nodule in the left upper lobe (image 32). No consolidation. No effusion. IMPRESSION: Lung-RADS category 3 with new 4 mm nodule. Three month low-dose CT follow-up evaluation is recommended. <Electronically signed by Chalo Bills > 02/20/20 [id number]
== END ==
LOC: M RAD 10:20
PROVIDERS: ATTEND Internal Medicine Pulmonary Disease
DX: Z12.2 Encounter for screening for malignant neoplasm of respiratory organs (principal); Z87.891 Personal history of nicotine dependence

== ENCOUNTER → 2020-01-28 | Outpatient (REF) | payer MEDICARE ==
[2020-01-28 12:44] LABS: BASO % 0.4 % (0.0-1.0); EOS # 0.1 10^3/uL (0.0-0.5); EOS % 1.6 % (0.0-3.0); HEMATOCRIT 37.7 % (36.0-47.0); HEMOGLOBIN 12.3 g/dl (12.0-15.5); LYMPH # 1.5 10^3/uL (1.5-5.0); LYMPH % 19.7 % (24.0-44.0); MEAN CORPUSCULAR HEMOGLOBIN 30.5 pg (27.0-33.0); MEAN CORPUSCULAR HGB CONC 32.6 g/dl (32.0-36.5); MEAN CORPUSCULAR VOLUME 93.5 fl (80.0-96.0); MONO # 0.6 10^3/uL (0.0-0.8); MONO % 7.4 % (0.0-5.0); NEUTROPHILS # 5.4 10^3/uL (1.5-8.5); NEUTROPHILS % 70.8 % (36.0-66.0); PLATELET COUNT, AUTOMATED 248 10^3/uL (150-450); RED BLOOD COUNT 4.03 10^6/uL (4.00-5.40); WHITE BLOOD COUNT 7.6 10^3/uL (4.0-10.0)
[2020-01-28 12:54] LABS: ALBUMIN 3.2 GM/DL (3.2-5.2); ALT/SGPT 19 U/L (12-78); BILIRUBIN,TOTAL 0.3 MG/DL (0.2-1.0); BLOOD UREA NITROGEN 9 MG/DL (7-18); CALCIUM LEVEL 8.8 MG/DL (8.5-10.1); CARBON DIOXIDE LEVEL 27 MEQ/L (21-32); CHLORIDE LEVEL 109 MEQ/L (98-107); CHOLESTEROL LEVEL 189 MG/DL (<200); CHOLESTEROL RISK RATIO 4.395 (<5); CREATININE FOR GFR 0.64 MG/DL (0.55-1.30); GLOMERULAR FILTRATION RATE > 60.0 (>51); GLUCOSE, FASTING 89 MG/DL (70-100); HDL CHOLESTEROL 43 MG/DL (>40); LDL CHOLESTEROL 129 MG/DL (<100); LIPASE 129 U/L (73-393); NON-HDL-C 146 MG/DL; POTASSIUM SERUM 4.1 MEQ/L (3.5-5.1); SODIUM LEVEL 141 MEQ/L (136-145); TOTAL PROTEIN 7.3 GM/DL (6.4-8.2); TRIGLYCERIDES LEVEL 83 MG/DL (<150)
== END ==
LOC: M SFHCCLAY 11:25
PROVIDERS: ATTEND Physician Assistant
DX: R10.11 Right upper quadrant pain (principal); Z79.899 Other long term (current) drug therapy

== ENCOUNTER → 2020-02-18 | Outpatient (CLI) | payer MEDICARE ==
--- NOTE | 2020-02-18 07:52 | REP ---
INDICATION: RUQ ABD PAIN COMPARISON: None. TECHNIQUE: Real time burton scale ultrasound examination using curved array transducer. FINDINGS: Liver is normal in contour, size, and echogenicity without focal hepatic lesions identified. Pancreas is incompletely evaluated due to interposed bowel gas. The gallbladder is normal and without gallstones, wall thickening, or pericholecystic fluid. No biliary ductal dilatation is appreciated and the common bile duct measures 4.7 mm diameter. Right kidney is normal in reniform shape without hydronephrosis and measures 9.8 x 5.2 x 4.4 cm. No ascites in the visualized right upper quadrant. IMPRESSION: Normal limited right upper quadrant ultrasound <Electronically signed by Chalo Bills > 02/18/20 0749
== END ==
LOC: M RAD 07:08
PROVIDERS: ATTEND Physician Assistant
DX: R10.11 Right upper quadrant pain (principal)

== ENCOUNTER → 2020-03-19 | Outpatient (REF) | payer MEDICARE ==
[2020-03-19 16:19] LABS: BASO % 0.7 % (0.0-1.0); EOS # 0.1 10^3/uL (0.0-0.5); HEMATOCRIT 37.4 % (36.0-47.0); HEMOGLOBIN 12.2 g/dl (12.0-15.5); LYMPH # 1.8 10^3/uL (1.5-5.0); LYMPH % 32.7 % (24.0-44.0); MEAN CORPUSCULAR HEMOGLOBIN 30.3 pg (27.0-33.0); MEAN CORPUSCULAR HGB CONC 32.6 g/dl (32.0-36.5); MEAN CORPUSCULAR VOLUME 92.8 fl (80.0-96.0); MONO # 0.4 10^3/uL (0.0-0.8); MONO % 6.7 % (0.0-5.0); NEUTROPHILS # 3.2 10^3/uL (1.5-8.5); NEUTROPHILS % 57.7 % (36.0-66.0); PLATELET COUNT, AUTOMATED 305 10^3/uL (150-450); RED BLOOD COUNT 4.03 10^6/uL (4.00-5.40); WHITE BLOOD COUNT 5.5 10^3/uL (4.0-10.0)
[2020-03-19 16:46] LABS: ALBUMIN 3.3 GM/DL (3.2-5.2); ALT/SGPT 13 U/L (12-78); BILIRUBIN,TOTAL 0.3 MG/DL (0.2-1.0); BLOOD UREA NITROGEN 8 MG/DL (7-18); C REACTIVE PROTEIN QUANTITATIV 1.33 MG/DL (0.00-0.30); CALCIUM LEVEL 8.8 MG/DL (8.5-10.1); CARBON DIOXIDE LEVEL 29 MEQ/L (21-32); CHLORIDE LEVEL 105 MEQ/L (98-107); CREATININE FOR GFR 0.73 MG/DL (0.55-1.30); GLOMERULAR FILTRATION RATE > 60.0 (>51); GLUCOSE, FASTING 156 MG/DL (70-100); POTASSIUM SERUM 3.8 MEQ/L (3.5-5.1); SODIUM LEVEL 138 MEQ/L (136-145); TOTAL PROTEIN 7.4 GM/DL (6.4-8.2)
== END ==
LOC: M LABDRAWC 15:55
PROVIDERS: ATTEND Internal Medicine
DX: M05.741 Rheumatoid arthritis with rheumatoid factor of right hand without organ or systems involvement (principal)

== ENCOUNTER → 2020-07-03 | Outpatient (REF) | payer MEDICARE ==
[2020-07-03 11:36] LABS: BASO % 0.7 % (0.0-1.0); EOS # 0.1 10^3/uL (0.0-0.5); HEMATOCRIT 38.8 % (36.0-47.0); HEMOGLOBIN 12.8 g/dl (12.0-15.5); LYMPH # 1.8 10^3/uL (1.5-5.0); LYMPH % 29.3 % (24.0-44.0); MEAN CORPUSCULAR HEMOGLOBIN 30.6 pg (27.0-33.0); MEAN CORPUSCULAR VOLUME 92.8 fl (80.0-96.0); MONO # 0.5 10^3/uL (0.0-0.8); MONO % 7.4 % (2.0-8.0); NEUTROPHILS # 3.7 10^3/uL (1.5-8.5); NEUTROPHILS % 60.4 % (36.0-66.0); PLATELET COUNT, AUTOMATED 244 10^3/uL (150-450); RED BLOOD COUNT 4.18 10^6/uL (4.00-5.40); WHITE BLOOD COUNT 6.1 10^3/uL (4.0-10.0)
[2020-07-03 12:32] LABS: ALBUMIN 3.4 GM/DL (3.2-5.2); ALT/SGPT 14 U/L (12-78); BILIRUBIN,TOTAL 0.3 MG/DL (0.2-1.0); BLOOD UREA NITROGEN 13 MG/DL (7-18); CALCIUM LEVEL 9.3 MG/DL (8.5-10.1); CARBON DIOXIDE LEVEL 27 MEQ/L (21-32); CHLORIDE LEVEL 107 MEQ/L (98-107); CREATININE FOR GFR 0.67 MG/DL (0.55-1.30); GLOMERULAR FILTRATION RATE > 60.0 (>51); GLUCOSE, FASTING 67 MG/DL (70-100); SODIUM LEVEL 139 MEQ/L (136-145); TOTAL PROTEIN 7.3 GM/DL (6.4-8.2)
== END ==
LOC: M LABDRAWC 11:07
PROVIDERS: ATTEND Internal Medicine
DX: Z79.899 Other long term (current) drug therapy (principal)

== ENCOUNTER → 2020-07-14 | Outpatient (REF) | payer MEDICARE ==
[2020-07-14 16:49] LABS: BASO % 0.7 % (0.0-1.0); EOS # 0.2 10^3/uL (0.0-0.5); EOS % 2.5 % (0.0-3.0); HEMATOCRIT 36.5 % (36.0-47.0); HEMOGLOBIN 12.2 g/dl (12.0-15.5); LYMPH # 2.2 10^3/uL (1.5-5.0); LYMPH % 36.5 % (24.0-44.0); MEAN CORPUSCULAR HEMOGLOBIN 31.4 pg (27.0-33.0); MEAN CORPUSCULAR HGB CONC 33.4 g/dl (32.0-36.5); MEAN CORPUSCULAR VOLUME 93.8 fl (80.0-96.0); MONO # 0.5 10^3/uL (0.0-0.8); MONO % 8.1 % (2.0-8.0); NEUTROPHILS # 3.1 10^3/uL (1.5-8.5); PLATELET COUNT, AUTOMATED 257 10^3/uL (150-450); RED BLOOD COUNT 3.89 10^6/uL (4.00-5.40); WHITE BLOOD COUNT 5.9 10^3/uL (4.0-10.0)
[2020-07-14 17:05] LABS: INR 0.94; PROTHROMBIN TIME 12.8 SECONDS (12.5-14.3)
[2020-07-14 17:06] LABS: PARTIAL THROMBOPLASTIN TIME 27.8 SECONDS (24.2-38.5)
[2020-07-14 17:17] LABS: ALT/SGPT 16 U/L (12-78); BLOOD UREA NITROGEN 12 MG/DL (7-18); CALCIUM LEVEL 8.9 MG/DL (8.5-10.1); CARBON DIOXIDE LEVEL 28 MEQ/L (21-32); CHLORIDE LEVEL 107 MEQ/L (98-107); GLOMERULAR FILTRATION RATE > 60.0 (>51); GLUCOSE, FASTING 88 MG/DL (70-100); POTASSIUM SERUM 4.1 MEQ/L (3.5-5.1); SODIUM LEVEL 138 MEQ/L (136-145)
[2020-07-14 17:18] LABS: ALBUMIN 3.4 GM/DL (3.2-5.2); BILIRUBIN,TOTAL 0.2 MG/DL (0.2-1.0); TOTAL PROTEIN 7.1 GM/DL (6.4-8.2)
== END ==
LOC: M LABDRAWC 15:46
PROVIDERS: ATTEND Internal Medicine
DX: M05.741 Rheumatoid arthritis with rheumatoid factor of right hand without organ or systems involvement (principal)

== ENCOUNTER → 2020-07-21 | Outpatient (CLI) | payer MEDICARE ==
--- NOTE | 2020-07-21 17:48 | REP ---
INDICATION: SOLITARY PULMONARY NODULE. COMPARISON: Comparison is made with prior CT studies from December 24, 2019, September 19, 2018, and July 19, 2016.. TECHNIQUE: Helical scanning is acquired. 3 mm axial images are generated. Coronal and sagittal MPR and coronal MIP images are generated. FINDINGS: Preliminary digital tableau administrator radiograph is unremarkable. There are gqve-nw-iwpskwxw emphysematous changes in the upper lobes, right more so than left unchanged. The recently noted 4 mm noncalcified pulmonary nodule in the left upper lobe is again seen on page 32 of 108 in series 201 of today's study. This is unchanged from December 24, 2019. No new pulmonary nodule is appreciated. No lung mass or infiltrate is seen. No pleural or pericardial effusion is seen. Mild bibasilar fibrosis is seen. No hilar or mediastinal mass or adenopathy is observed. Somewhat nodular breast parenchyma is again seen and appears stable. There is minimal vascular calcification. No adrenal lesion is seen. No tracheal bronchial lesion is seen. IMPRESSION: Emphysematous changes. Stable 4 mm left upper lobe peribronchovascular nodule unchanged from December 24, 2019 study. Lung RADS category [address] study suggested in 9-12 months. <Electronically signed by Fabio Bravo > 07/21/20 [id number]
== END ==
LOC: M RAD 14:29
PROVIDERS: ATTEND Internal Medicine Pulmonary Disease
DX: R91.1 Solitary pulmonary nodule (principal)

== ENCOUNTER → 2020-08-14 | Outpatient (REF) | payer MEDICARE | LOC: M WUC 11:09 | PROVIDERS: ATTEND Physician Assistant | DX: R30.0 Dysuria (principal) ==

== ENCOUNTER → 2020-09-03 | Outpatient (REF) | payer MEDICARE | LOC: M SFHCWAGY 15:12 | PROVIDERS: ATTEND Nurse Practitioner Women's Health | DX: Z12.4 Encounter for screening for malignant neoplasm of cervix (principal); N95.8 Other specified menopausal and perimenopausal disorders ==

== ENCOUNTER → 2020-09-03 | Outpatient (CLI) | payer MEDICARE ==
--- NOTE | 2020-09-03 13:34 | REPMRS ---
Patient History The patient states she had a clinical breast exam in August 2020. Family history of pancreatic cancer at age 50 or over in mother. Patient states no breast complaints. Patient has signed the MRS history sheet. Digital Woman Screen Mammo: September 03, 2020 - Exam #: [id number] Bilateral CC and MLO view(s) were taken. Technologist: Yomaira Kerns, Technologist Prior study comparison: July 26, 2018, bilateral digital woman screen mammo performed at [facility]. June 29, 2016, bilateral digital mammo screening bilat, performed at [facility]. FINDINGS: The breast tissue is heterogeneously dense. This may lower the sensitivity of mammography. Screening. Digital screening (2D) mammography was performed bilaterally in the CC and MLO projections. Additionally, breast tomosynthesis (3D mammography) was performed bilaterally in the CC and MLO projections. Todays exam was compared to the prior exams(s). By history, the patient has no complaints of a palpable breast abnormality or other significant breast complaints. The breasts are unchanged in size and shape. There are no christoph-soft tissue densities or spiculated masses. There is no internal architectural distortion. There are no suspicious christoph-calcific clusters. Skin thickening or nipple retraction is not present. IMPRESSION: BI-RADS Category 2- Benign Findings(s). There is no evidence of malignant alteration of the breasts. Followup examination recommended in one year. The Volpara volumetric breast density category is C, the breasts are heterogenously dense which may obscure small masses. This mammogram was read with the assistance of [employer],an FDA approved computer aided detection system for mammography. The lifetime Tyrer-Cuzick score is 6 % Negative x-ray reports should not delay surgical consultation if a dominant or clinically suspicious mass is present. Not all breast cancers can be identified by mammography. Therefore, we recommend that you continue to perform regular breast self-examination and physical examination and then promptly contact your physician of any concerns or changes. Adenosis and dense breasts may obscure an underlying neoplasm. Assessment: BI-RADS/ACR category 2 mammogram. Benign Findings. Recommendation Routine screening mammogram of both breasts in 1 year. Electronically Signed By: Rajeev Meehan DO 09/03/20 4859
== END ==
LOC: M WHC 11:26
PROVIDERS: ATTEND Nurse Practitioner Women's Health
DX: Z01.419 Encounter for gynecological examination (general) (routine) without abnormal findings (principal); Z12.31 Encounter for screening mammogram for malignant neoplasm of breast; Z80.0 Family history of malignant neoplasm of digestive organs
CPT/HCPCS: 77063; 77067; 87624; G0101; G0123

== ENCOUNTER → 2020-12-14 | Outpatient (REF) | payer MEDICARE ==
[2020-12-14 16:44] LABS: BASO % 0.5 % (0.0-1.0); EOS # 0.2 10^3/uL (0.0-0.5); EOS % 3.3 % (0.0-3.0); HEMATOCRIT 37.7 % (36.0-47.0); HEMOGLOBIN 12.6 g/dl (12.0-15.5); LYMPH # 1.9 10^3/uL (1.5-5.0); LYMPH % 33.8 % (24.0-44.0); MEAN CORPUSCULAR HEMOGLOBIN 31.6 pg (27.0-33.0); MEAN CORPUSCULAR HGB CONC 33.4 g/dl (32.0-36.5); MEAN CORPUSCULAR VOLUME 94.5 fl (80.0-96.0); MONO # 0.4 10^3/uL (0.0-0.8); MONO % 7.7 % (2.0-8.0); NEUTROPHILS % 54.5 % (36.0-66.0); PLATELET COUNT, AUTOMATED 255 10^3/uL (150-450); RED BLOOD COUNT 3.99 10^6/uL (4.00-5.40); WHITE BLOOD COUNT 5.5 10^3/uL (4.0-10.0)
[2020-12-14 17:39] LABS: ALBUMIN 3.3 GM/DL (3.2-5.2); ALT/SGPT 18 U/L (12-78); BILIRUBIN,TOTAL 0.4 MG/DL (0.2-1.0); BLOOD UREA NITROGEN 9 MG/DL (7-18); CALCIUM LEVEL 8.6 MG/DL (8.8-10.2); CARBON DIOXIDE LEVEL 24 MEQ/L (21-32); CHLORIDE LEVEL 109 MEQ/L (98-107); CHOLESTEROL LEVEL 202 MG/DL (<200); CHOLESTEROL RISK RATIO 4.697 (<5); CREATININE FOR GFR 0.63 MG/DL (0.55-1.30); GLOMERULAR FILTRATION RATE > 60.0 (>45); GLUCOSE, FASTING 81 MG/DL (70-100); HDL CHOLESTEROL 43 MG/DL (>40); LDL CHOLESTEROL 132 MG/DL (<100); NON-HDL-C 159 MG/DL; POTASSIUM SERUM 4.3 MEQ/L (3.5-5.1); SODIUM LEVEL 139 MEQ/L (136-145); TOTAL PROTEIN 7.1 GM/DL (6.4-8.2); TRIGLYCERIDES LEVEL 137 MG/DL (<150)
== END ==
LOC: M SFHCCAPE 07:26
PROVIDERS: ATTEND Physician Assistant
DX: R10.11 Right upper quadrant pain (principal); E78.2 Mixed hyperlipidemia

== ENCOUNTER → 2020-12-14 | Outpatient (REF) | payer MEDICARE ==
[2020-12-14 17:39] LABS: ALBUMIN 3.3 GM/DL (3.2-5.2); ALT/SGPT 19 U/L (12-78); BILIRUBIN,TOTAL 0.4 MG/DL (0.2-1.0); BLOOD UREA NITROGEN 8 MG/DL (7-18); CALCIUM LEVEL 8.9 MG/DL (8.8-10.2); CARBON DIOXIDE LEVEL 24 MEQ/L (21-32); CHLORIDE LEVEL 110 MEQ/L (98-107); CREATININE FOR GFR 0.58 MG/DL (0.55-1.30); GLOMERULAR FILTRATION RATE > 60.0 (>45); GLUCOSE, FASTING 76 MG/DL (70-100); POTASSIUM SERUM 4.5 MEQ/L (3.5-5.1); SODIUM LEVEL 140 MEQ/L (136-145); TOTAL PROTEIN 7.2 GM/DL (6.4-8.2)
[2020-12-14 18:50] LABS: BASO % 0.5 % (0.0-1.0); EOS # 0.2 10^3/uL (0.0-0.5); EOS % 3.3 % (0.0-3.0); HEMATOCRIT 37.7 % (36.0-47.0); HEMOGLOBIN 12.6 g/dl (12.0-15.5); LYMPH # 1.9 10^3/uL (1.5-5.0); LYMPH % 33.8 % (24.0-44.0); MEAN CORPUSCULAR HEMOGLOBIN 31.6 pg (27.0-33.0); MEAN CORPUSCULAR HGB CONC 33.4 g/dl (32.0-36.5); MEAN CORPUSCULAR VOLUME 94.5 fl (80.0-96.0); MONO # 0.4 10^3/uL (0.0-0.8); MONO % 7.7 % (2.0-8.0); NEUTROPHILS % 54.5 % (36.0-66.0); PLATELET COUNT, AUTOMATED 255 10^3/uL (150-450); RED BLOOD COUNT 3.99 10^6/uL (4.00-5.40); WHITE BLOOD COUNT 5.5 10^3/uL (4.0-10.0)
== END ==
LOC: M LABDRWCV 16:19
PROVIDERS: ATTEND Internal Medicine
DX: M05.741 Rheumatoid arthritis with rheumatoid factor of right hand without organ or systems involvement (principal); R10.11 Right upper quadrant pain; E78.2 Mixed hyperlipidemia

== ENCOUNTER → 2021-03-12 | Outpatient (CLI) | payer MEDICARE ==
[~2021-03-12] MED LIST changes: +HUMI40KI2 SC; +MOBI4TAB PO
== END ==
LOC: M LABSMTC 11:29
PROVIDERS: ATTEND Anesthesiology
DX: Z01.812 Encounter for preprocedural laboratory examination (principal); Z20.822 Contact with and (suspected) exposure to COVID-19

== ENCOUNTER 2021-03-17 07:11 | Day surgery (SDC) | payer MEDICARE ==
[~2021-03-17] VITALS: Ht 154.9 cm; Wt 69.4 kg
[~2021-03-17 07:11] MED LIST changes: +NS 1,000 ML IV ONE
[2021-03-17] MEDS ORDERED: propofoL 200 MG/20 ML VIAL As Ordered ONE (07:15)
[2021-03-17] MEDS ORDERED: LIDOCAINE 2% 100MG/5ML SDV (FOR ANES.) As Ordered ONE (07:15)
--- OUTSIDE RECORDS SUMMARY | 2021-03-17 07:15 | CCD | Continuity of Care Document ---
Author Author Aurora HERBERT PA Organization Unknown Address [address] [place] [address] Phone [phone] Care Team Providers Care Cotton Cleaner Name Role Phone Yamilet Cain P.A.-C AUTM Problems Description No Information Available Social History Type Date Description Comments Sex Unknown ETOH Use Denies alcohol use Recreational Drug Use Denies Drug Use Tobacco Use Start: Unknown End: Unknown Patient is a former smoker 1 1/2 ppd x25 years quit in 2019 Smoking Status Reviewed: 08/06/20 Patient is a former smoker 1 1/2 ppd x25 years quit in 2019 Allergies and adverse reactions Description No Known Drug Allergies Medications Active Medications SIG Qnty Indications Ordering Provide r Date Suprep Bowel Prep Kit 17.5-3.13-1.6GM/177ML Solution take per doctor's bowel prep instructions. 354ml Raúl Galicia M.D. 03/03/2021 Meloxicam 7.5mg Tablets 1 tab by mouth every day as needed 60tabs Unknown Folic Acid 1mg Tablets 1 by mouth every day Unknown Humira Pen CF 40mg/0.4ML PNKT inject 1 pen subcutaneously every 2 weeks Johny Tabor M.D. 0 Immunizations CPT Code Status Date Vaccine Lot # [id number] Given 02/16/2018 Influenza Virus Vaccine, Quadrivalent, Slit Virus, Im Use [id number] Vital Signs Date Vital Result Comment 03/02/2021 8:52am BP Systolic 122 mmHg BP Diastolic 78 mmHg Body Temperature 98.2 F Height 61 inches 5'1" Weight 156.00 lb BMI (Body Mass Index) 29.5 kg/m2 [place] Body Weight 105 lb Weight 70.762 kg BSA (Body Surface Area) 1.70 m2 08/06/2020 1:09pm BP Systolic 146 mmHg BP Diastolic 88 mmHg Heart Rate 85 /min O2 % BldC Oximetry 97 % Body Temperature 98.2 F Height 61 inches 5'1" Weight 154.00 lb BMI (Body Mass Index) 29.1 kg/m2 [place] Body Weight 105 lb Weight 69.854 kg BSA (Body Surface Area) 1.69 m2 Results Description No Information Available Procedures Date Code Description Status 03/02/2021 48302 Office/Outpatient New Moderate M DM 45-59 Minutes Completed Medical Devices Description No Information Available Encounters Type Date Location Provider Dx Diagnosis Office Visit 03/02/2021 9:00a [facility] LUZMA Good R85.89 Oth abnormal findings in specimens from dgstv org/abd cav K59.00 Constipation, unspecified Z80.0 Family history of malignant neoplasm of digestive organs Assessments Date Code Description Provider 03/02/2021 R85.89 Other abnormal findi ngs in specimens from digestive organs and abdominal cavity LUZMA Carlson 03/02/2021 K59.00 Constipation, unspecified LUZMA Carlson 03/02/2021 Z80.0 Family history of malignant neop lasm of digestive organs LUZMA Carlson Plan of Treatment Future Appointment(s):* 04/01/2021 10:00 am - LUZMA Carlson at [facility] * 03/17/2021 8:15 am - Daniel Johnson MD at [facility] 03/02/2021 - LUZMA Carlson* R85.89 Other abnormal findings in specimens from digestive organs and abdominal cavity * K59.00 Constipation, unspecified * Z80.0 Family history of malignant neoplasm of digestive organs Functional Status Description No Information Available Mental Status Description No Information Available Referrals Refer to Reason for Referral Status Appt Date Daniel Johnson MD SCHEDULE COLONOSCOPY, POSITIVE COLOGUARD Scheduled 03/02/[address] [place] [address] [address] [place], [place] [id number] [phone] Inocente Noonan M.D. POSITIVE COLOGUARD [facility] [address], [address] [place] [address] [phone]
--- OUTSIDE RECORDS SUMMARY | 2021-03-17 07:15 | CCD | Continuity of Care Document ---
Author Author Aurora HERBERT PA Organization Unknown Address [address] [place] [address] Phone [phone] Care Team Providers Care Licensed Staff Mft Name Role Phone Yamilet Cain P.A.-C AUTM [phone] Problems Description No Information Available Social History [...] SIG Qnty Indications Ordering Provide r Date Meloxicam 7.5mg Tablets 1 tab by mouth every day as needed 60tabs Unknown Folic Acid 1mg Tablets 1 by mouth every day Unknown Humira Pen CF 40mg/0.4ML PNKT inject 1 pen subcutaneously every 2 weeks Johny Tabor M.D. 0 Immunizations CPT Code Status Date Vaccine Lot # [id number] Given 02/16/2018 Influenza Virus Vaccine, Quadrivalent, Slit Virus, Im Use [id number] Vital Signs Date Vital Result Comment 03/02/2021 8:52am BP Systolic 122 mmHg BP Diastolic 78 mmHg Body Temperature 98.2 F Height 61 inches 5'1" Weight 156.00 lb BMI (Body Mass Index) 29.5 kg/m2 [place] Body Weight 105 lb Weight 70.762 kg BSA (Body Surface Area) 1.70 m2 08/06/2020 1:09pm BP Systolic 146 mmHg BP Diastolic 88 mmHg Heart Rate 85 /min O2 % BldC Oximetry 97 % Body Temperature 98.2 F Height 61 inches 5'1" Weight 154.00 lb BMI (Body Mass Index) 29.1 kg/m2 [place] Body Weight 105 lb Weight 69.854 kg BSA (Body Surface Area) 1.69 m2 Results Description No Information Available Procedures Description No Information Available Medical Devices Description No Information Available Encounters Description No Information Available Assessments Date Code Description Provider 03/02/2021 R85.89 Other abnormal findi ngs in specimens from digestive organs and abdominal cavity LUZMA Carlson 03/02/2021 Z80.0 Family history of malignant neop lasm of digestive organs LUZMA Carlson Plan of Treatment No Information Available Functional Status Description No Information Available Mental Status Description No Information Available Referrals Refer to Reason for Referral Status Appt Date Daniel Johnson MD SCHEDULE COLONOSCOPY, POSITIVE COLOGUARD Scheduled 03/02/2021 [address] [facility] [address] [place] [address] [phone] Inocente Noonan M.D. POSITIVE COLOGUARD Created [facility] [address], [address] [place] [address] [phone]
--- OUTSIDE RECORDS SUMMARY | 2021-03-17 07:16 | CCD ---
Author Author [facility] Organization [facility] Address Unknown Phone Unavailable Care Team Providers Care Cotton Program Technician Name Role Phone Cain, Yamilet Unavailable PROBLEMS Type Condition ICD9-CM Code TLU82-OG Code Onset Dates Condition S tatus W/U Status Risk SNOMED Code Notes Problem Current smoker F17.200 Active confirmed 7717 6002 Problem Mixed hyperlipidemia 272.2 Active confirmed 545115813 Problem Pulmonary emphysema, unspecified emphysema type J4 3.9 Active confirmed 14740979 Problem Cigarette nicotine dependence without complication F17.210 Active confirmed 74923286 Problem High risk medication use Z79.899 Active confirmed 042443745719016 Problem Gastroesophageal reflux dise ase, unspecified whether esophagitis present K21.9 Active confirmed 151574280 Problem Mixed hyperlipidemia E78.2 Active confirmed 684530348 Problem Difficulty walking R26.2 Active confirmed 7 15863287 Problem Depression with anxiety F41.8 Active confirmed 919310749 Problem Rheumatoid arthritis involvi ng multiple sites with positive rheumatoid factor M05.79 Active confirmed 651093262 Problem Early menopause occurring in patient age younger than 45 years E28.319 Active confirmed 864543994 Problem Mild depression F32.0 Active confirmed 3104 59341 Problem Immunocompromised patient D89.9 Active confirmed 231414307 ALLERGIES Allergen (clinical drug ingredient) Drug/Non Drug Allergy do cumented on EMR Reaction Allergy Type Onset Date Status Wellbutrin Hives Drug Allergy Active ENCOUNTERS from 1960 to 2020-12-24 Encounter Location Date Provider Diagnosis [address] [place] [address] Nov, Yamilet Cani RUQ abdominal pain R 10.11 ; Routine gynecological examination Z01.419 ; Gastroesophageal reflux disease, unspecified whether esophagitis present K21.9 ; Cervical cancer screening Z12.4 ; Rheumatoid arthritis involving multiple sites with positive rheumatoid factor M05.79 ; Breast cancer screening by mammogram Z12.31 and Mixed hyperlipidemia E78.2 IMMUNIZATIONS Vaccine Route Administration Date Status Influenza 18 yrs & older Flublok Unknown Jan 28, 2020 Administered Influenza 6mo & up Fluzone Unknown Jun 15, 2016 Refus ed SOCIAL HISTORY Tobacco Use: Social History Observation Description Date Details (start date - stop date) Former Smoker Sex Assigned At : Social History Observation Description Sex Assigned At Unknown Language: Question Answer Notes Languages spoken: Indonesian Restorationist: Question Answer Notes Restorationist No jainism beliefs that would impact health care. Sexual Hx: Question Answer Notes Had sex in the last 12 months (vaginal, oral, or anal)? Yes LMP: menopause Have you ever had an STD? No with Men only Tobacco Use: Question Answer Notes Are you a: former smoker How long has it been since you last smoked? 1-5 years REASON FOR REFERRAL No Information VITAL SIGNS No information MEDICATIONS Medication SIG (Take, Route, Frequency, Duration) Notes Start Da te End Date Status Shower Chair without wheels as directed Daily Use May, Active Fluoxetine HCl 20 MG 1 capsule Orally Once a day for 30 Not-Taking Humira Pen 40 MG/0.4ML 1 injection Subcutaneous every 2 weeks fo r 28 day(s) August, Not-Taking traMADol HCl 50 MG 1 tablet as needed Orally Ev lesli 8 hours PRN (MDD3) for 7 day(s) May, Active Omeprazole 40 MG 1 capsule 30 minutes before morning meal Orally Kimberly y Not-Taking Cephalexin 500 MG 1 tablet Orally every 8 hrs for 7 days 0 May, Not-Taking Albuterol 90 MCG/ACT Inhalation as needed prn Active Folic Acid 1 MG 1 tablet Orally Once a day for 30 day(s) Active Stiolto Respimat 2.5-2.5 MCG/ACT 2 puffs Inhalation Once a day Not-Taking Humira 40 MG/0.4ML 0.8 ml Subcutaneous Active Methotrexate 2.5 MG 8 tab (split dose 4tab qam a nd 4tab qpm) Orally once a week for 28 day(s) Not-Taking predniSONE 5 MG 2 tabs daily x 3 days, then 1 tab daily x 3 as needed for arthritis flares Orally Once a day for 30 day(s) Not-Taking Multi For Her 50+ - as directed Orally Active Meloxicam 7.5 MG 1 tablet Orally once daily as needed Active Rollator Ultra-Light - as directed May, Active sulfaSALAzine 500 MG 2 tablet Orally bid for 30 day(s) Dec, Not-Taking Vitamin D-3 25 MCG (1000 UT) 1 capsule Orally Once a day for 30 day(s ) Active PROCEDURES No Information RESULTS Component Value Reference Range CBC with Differential Reviewed date:12/21/2020 09:02:01 Interpretation: Performing Lab:[facility], [facility] [address] [facility] [address] , ,[id number] WHITE BLOOD COUNT 5.5 4.0-10.0 RED BLOOD COUNT 3.99 4.00-5.40 HEMOGLOBIN 12.6 12.0-15.5 HEMATOCRIT 37.7 36.0-47.0 MEAN CORPUSCULAR VOLUME 94.5 80.0-96.0 MEAN CORPUSCULAR HEMOGLOBIN 31.6 27.0-33.0 MEAN CORPUSCULAR HGB CONC 33.4 32.0-36.5 RED CELL DISTRIBUTION WIDTH 13.5 11.5-14.5 PLATELET COUNT, AUTOMATED 255 150-450 NEUTROPHILS % 54.5 36.0-66.0 LYMPH % 33.8 24.0-44.0 MONO % 7.7 2.0-8.0 EOS % 3.3 0.0-3.0 BASO % 0.5 0.0-1.0 NEUTROPHILS # 3.0 1.5-8.5 LYMPH # 1.9 1.5-5.0 MONO # 0.4 0.0-0.8 EOS # 0.2 0.0-0.5 BASO # 0.0 0.0-0.2 Comprehensive Metabolic Profile (CMP) Reviewed date:12/21/2020 09:02:08 Interpretation: Performing Lab:[facility] [address] [facility] [address] , ,[place] [address] GLUCOSE, FASTING 81 70-100 BLOOD UREA NITROGEN 9 7-18 CREATININE FOR GFR 0.63 0.55-1.30 GLOMERULAR FILTRATION RATE > 60.0 >45 SODIUM LEVEL 139 136-145 POTASSIUM SERUM 4.3 3.5-5.1 CHLORIDE LEVEL 109 98-107 CARBON DIOXIDE LEVEL 24 21-32 CALCIUM LEVEL 8.6 8.8-10.2 AST/SGOT 14 7-37 ALT/SGPT 18 12-78 ALKALINE PHOSPHATASE 105 45-117 BILIRUBIN,TOTAL 0.4 0.2-1.0 TOTAL PROTEIN 7.1 6.4-8.2 ALBUMIN 3.3 3.2-5.2 ALBUMIN/GLOBULIN RATIO 0.9 1.2-2.2 LIPID PANEL (CARDIAC RISK) Reviewed date:12/21/2020 09:02:14 Interpretation: Performing Lab:[facility] [address] [address] , [place] [address] TRIGLYCERIDES LEVEL 137 <150 CHOLESTEROL LEVEL 202 <200 HDL CHOLESTEROL 43 >40 LDL CHOLESTEROL 132 <100 NON-HDL-C 159 CHOLESTEROL RISK RATIO 4.697 <5 ANTI-MITOCHONDRIAL ANTIBODY Reviewed date:12/21/2020 09:02:28 Interpretation: Performing Lab:[facility], [facility] [address] [facility] [address] , [place] [address] ANTI-MITOCHONDRIAL ANTIBODY 21.9 0.0-20.0 TSH Reviewed date:12/21/2020 09:02:20 Interpretation: Performing Lab:[facility] [address] [facility] [address] [facility] [address] , [place] [address] THYROID STIMULATING HORMONE 2.790 0.358-3.740 REASON FOR VISIT lab order in chart MEDICAL (GENERAL) HISTORY Type Description Date Medical History Rheumatoid Arthritis Medical History depression Medical History anxiety Medical History chronic fatigue Medical History GERD Surgical History back surgery 1993 Surgical History foot surgery 2000 Surgical History tubal ligation 1990 Hospitalization History child 1981 Hospitalization History child 1984 Hospitalization History child 1987 Hospitalization History child 1989 Hospitalization History surgery Goals Section No Information Health Concerns No Information MEDICAL EQUIPMENT No Information MENTAL STATUS No Information FUNCTIONAL STATUS No Information ASSESSMENTS Encounter Date Diagnosis Assessment Notes Treatment Notes Treatm ent Clinical Notes Nov, RUQ abdominal pain (ICD-10 - R10.11) Nov, Routine gynecological examination (ICD-10 - Z01. 419) Nov, Gastroesophageal reflux dise ase, unspecified whether esophagitis present (ICD-10 - K21.9) Nov, Cervical cancer screening (ICD-10 - Z12.4) Nov, Rheumatoid arthritis involvi ng multiple sites with positive rheumatoid factor (ICD-10 - M05.79) Nov, Breast cancer screening by mammogram (ICD-10 - Z 12.31) Nov, Mixed hyperlipidemia (ICD-10 - E78.2) PLAN OF TREATMENT No Information Insurance Providers Payer Name Payer Address Payer Phone Insured Name Patient Relati onship to Insured Coverage Start Date Coverage End Date MEDICARE COMPLETE [employer] [address] [address] [facility] [id number] BENJY REINA self
--- OUTSIDE RECORDS SUMMARY | 2021-03-17 07:16 | CCD ---
Author Author [facility] Organization [facility] Address Unknown Phone Unavailable Care Team Providers Care Animal Services Officer Name Role Phone Shlomo, Blanca Nash PT Unavailable Unavailable Shlomo, R Saad PT Unavailable Unavailable Shlomo, R Saad PT Unavailable Unavailable Shlomo, R Saad PT Unavailable Unavailable Shlomo, R Saad PT Unavailable Unavailable Shlomo, R Saad PT Unavailable Unavailable Shlomo, R Saad PT Unavailable Unavailable Shlomo, R Saad PT Unavailable Unavailable Shlomo, R Saad PT Unavailable Unavailable Shlomo, R Saad PT Unavailable Unavailable Shlomo, R Saad PT Unavailable Unavailable Shlomo, R Saad PT Unavailable Unavailable Shlomo, R Saad PT Unavailable Unavailable Shlomo, R Saad PT Unavailable Unavailable Shlomo, R Saad PT Unavailable Unavailable Shlomo, R Saad PT Unavailable Unavailable Shlomo, R Saad PT Unavailable Unavailable Shlomo, R Saad PT Unavailable Unavailable Shlomo, R Saad PT Unavailable Unavailable Shlomo, R Saad PT Unavailable Unavailable Shlomo, R Saad PT Unavailable Unavailable Shlomo, R Saad PT Unavailable Unavailable Shlomo, R Saad PT Unavailable Unavailable Shlomo, R Saad PT Unavailable Unavailable Shlomo, R Saad PT Unavailable Unavailable LETTIERE, Lela SEGAL Unavailable Unavailable LETTIERE, Lela SEGAL Unavailable Unavailable LETTIERE, Lela SEGAL Unavailable Unavailable LETTIERE, Lela SEGAL Unavailable Unavailable LETTIERE, Lela SEGAL Unavailable Unavailable LETTIERE, Lela SEGAL Unavailable Unavailable LETTIERE, Lela SEGAL Unavailable Unavailable LETTIERE, Lela SEGAL Unavailable Unavailable LETTIERE, Lela SEGAL Unavailable Unavailable LETTIERE, A JOHN PA Unavailable Unavailable LETTIERE, A JOHN PA Unavailable Unavailable LETTIERE, A JOHN PA Unavailable Unavailable LETTIERE, A JOHN PA Unavailable Unavailable LETTIERE, A JOHN PA Unavailable Unavailable LETTIERE, A JOHN PA Unavailable Unavailable LETTIERE, A JOHN PA Unavailable Unavailable LETTIERE, A JOHN PA Unavailable Unavailable LETTIERE, A JOHN PA Unavailable Unavailable LETTIERE, A JOHN PA Unavailable Unavailable LETTIERE, A JOHN PA Unavailable Unavailable LETTIERE, A JOHN PA Unavailable Unavailable LETTIERE, A JOHN PA Unavailable Unavailable LETTIERE, A JOHN PA Unavailable Unavailable LETTIERE, A JOHN PA Unavailable Unavailable LETTIERE, A JOHN PA Unavailable Unavailable LETTIERE, A JOHN PA Unavailable Unavailable LETTIERE, A JOHN PA Unavailable Unavailable LETTIERE, A JOHN PA Unavailable Unavailable LETTIERE, A JOHN PA Unavailable Unavailable LETTIERE, A JOHN PA Unavailable Unavailable LETTIERE, A JOHN PA Unavailable Unavailable Marshall, P Jose Daniel PA Unavailable Unavailable Marshall, P Jose Daniel PA Unavailable Unavailable Marshall, P Jose Daniel PA Unavailable Unavailable Marshall, P Jose Daniel PA Unavailable Unavailable Marshall, P Jose Daniel PA Unavailable Unavailable Marshall, P Jose Daniel PA Unavailable Unavailable Marshall, P Jose Daniel PA Unavailable Unavailable Marshall, P Jose Daniel PA Unavailable Unavailable Marshall, P Jose Daniel PA Unavailable Unavailable Marshall, P Jose Daniel PA Unavailable Unavailable Marshall, P Jose Daniel PA Unavailable Unavailable Marshall, P Jose Daniel PA Unavailable Unavailable Marshall, P Jose Daniel PA Unavailable Unavailable Marshall, P Jose Daniel PA Unavailable Unavailable Marshall, P Jose Daniel PA Unavailable Unavailable Marshall, P Jose Daniel PA Unavailable Unavailable Marshall, P Jose Daniel PA Unavailable Unavailable Marshall, P Jose Daniel PA Unavailable Unavailable Marshall, P Jose Daniel PA Unavailable Unavailable Marshall, P Jose Daniel PA Unavailable Unavailable Marshall, P Jose Daniel PA Unavailable Unavailable Marshall, P Jose Daniel PA Unavailable Unavailable Marshall, P Jose Daniel PA Unavailable Unavailable Marshall, P Jose Daniel PA Unavailable Unavailable Marshall, P Jose Daniel PA Unavailable Unavailable Marshall, P Jose Daniel PA Unavailable Unavailable Marshall, P Jose Daniel PA Unavailable Unavailable Marshall, P Jose Daniel PA Unavailable Unavailable Marshall, P Jose Daniel PA Unavailable Unavailable Marshall, P Jose Daniel PA Unavailable Unavailable Marshall, P Jose Daniel PA Unavailable Unavailable Marshall, P Jose Daniel PA Unavailable Unavailable Marshall, P Jose Daniel PA Unavailable Unavailable Marshall, P Jose Daniel PA Unavailable Unavailable Marshall, P Jose Daniel PA Unavailable Unavailable Marshall, P Jose Daniel PA Unavailable Unavailable Marshall, P Jose Daniel PA Unavailable Unavailable Marshall, P Jose Daniel PA Unavailable Unavailable Marshall, P Jose Daniel PA Unavailable Unavailable Marshall, P Jose Daniel PA Unavailable Unavailable Marshall, P Jose Daniel PA Unavailable Unavailable Marshall, P Jose Daniel PA Unavailable Unavailable Scuderi, G Pradeep MASON Unavailable Unavailable Scuderi, G Pradeep MASON Unavailable Unavailable Scuderi, G Pradeep MASON Unavailable Unavailable Scuderi, G Pradeep MASON Unavailable Unavailable Scuderi, G Pradeep MASON Unavailable Unavailable Scuderi, G Pradeep MASON Unavailable Unavailable Scuderi, G Pradeep MASON Unavailable Unavailable Scuderi, G Pradeep MASON Unavailable Unavailable Scuderi, G Pradeep MASON Unavailable Unavailable Scuderi, G Pradeep MASON Unavailable Unavailable Scuderi, G Pradeep MASON Unavailable Unavailable Scuderi, G Pradeep MASON Unavailable Unavailable Scuderi, G Pradeep MASON Unavailable Unavailable Scuderi, G Pradeep MASON Unavailable Unavailable Scuderi, G Pradeep MASON Unavailable Unavailable Scuderi, G Pradeep MASON Unavailable Unavailable Scuderi, G Pradeep MASON Unavailable Unavailable Scuderi, G Pradeep MASON Unavailable Unavailable Scuderi, G Pradeep MASON Unavailable Unavailable Scuderi, G Pradeep MASON Unavailable Unavailable Scuderi, G Pradeep MASON Unavailable Unavailable Scuderi, G Pradeep MASON Unavailable Unavailable Scuderi, G Pradeep MASON Unavailable Unavailable Scuderi, G Pradeep MASON Unavailable Unavailable Scuderi, G Pradeep MASON Unavailable Unavailable Scuderi, G Pradeep MASON Unavailable Unavailable Scuderi, G Pradeep MASON Unavailable Unavailable Scuderi, G Pradeep MASON Unavailable Unavailable Scuderi, G Pradeep MASON Unavailable Unavailable Scuderi, G Pradeep MASON Unavailable Unavailable Scuderi, G Pradeep MASON Unavailable Unavailable Scuderi, Moncho Fernández MD Unavailable Unavailable Scuderi, G Pradeep MASON Unavailable Unavailable Scuderi, G Pradeep MASON Unavailable Unavailable Scuderi, G Pradeep MASON Unavailable Unavailable Scuderi, G Pradeep MASON Unavailable Unavailable Scuderi, G Pradeep MASON Unavailable Unavailable Scuderi, G Pradeep MASON Unavailable Unavailable Scuderi, G Pradeep MASON Unavailable Unavailable Scuderi, G Pradeep MASON Unavailable Unavailable Scuderi, G Pradeep MASON Unavailable Unavailable Scuderi, Moncho Fernández MD Unavailable Unavailable Scuderi, G Pradeep MASON Unavailable Unavailable Scuderi, Moncho Fernández MD Unavailable Unavailable Scuderi, G Pradeep MASON Unavailable Unavailable Scuderi, G Pradeep MASON Unavailable Unavailable Scuderi, G Pradeep MASON Unavailable Unavailable Scuderi, G Pradeep MASON Unavailable Unavailable Scuderi, G Pradeep MASON Unavailable Unavailable Scuderi, G Pradeep MASON Unavailable Unavailable Scuderi, G Pradeep MASON Unavailable Unavailable Scuderi, G Pradeep MASON Unavailable Unavailable Scuderi, G Pradeep MASON Unavailable Unavailable Scuderi, G Pradeep MASON Unavailable Unavailable Scuderi, G Pradeep MD Unavailable Unavailable Scuderi, G Pradeep MASON Unavailable Unavailable Scuderi, G Pradeep MASON Unavailable Unavailable Scuderi, G Pradeep MASON Unavailable Unavailable Scuderi, G Pradeep MASON Unavailable Unavailable Scuderi, G Pradeep MASON Unavailable Unavailable Scuderi, G Pradeep MASON Unavailable Unavailable Scuderi, G Pradeep MASON Unavailable Unavailable Scuderi, G Pradeep MASON Unavailable Unavailable Scuderi, G Pradeep MASON Unavailable Unavailable Scuderi, G Pradeep MASON Unavailable Unavailable Scuderi, G Pradeep MASON Unavailable Unavailable Scuderi, G Pradeep MASON Unavailable Unavailable Scuderi, G Pradeep MASON Unavailable Unavailable Scuderi, G Pradeep MASON Unavailable Unavailable Scuderi, G Pradeep MASON Unavailable Unavailable Scuderi, G Pradeep MASON Unavailable Unavailable Scuderi, G Pradeep MASON Unavailable Unavailable Scuderi, G Pradeep MASON Unavailable Unavailable Scuderi, G Pradeep MASON Unavailable Unavailable Scuderi, G Pradeep MASON Unavailable Unavailable Scuderi, G Pradeep MASON Unavailable Unavailable John, J Pradeep PA Unavailable Unavailable John, J Pradeep PA Unavailable Unavailable John, J Pradeep PA Unavailable Unavailable John, J Pradeep PA Unavailable Unavailable John, J Pradeep PA Unavailable Unavailable John, J Pradeep PA Unavailable Unavailable John, J Pradeep PA Unavailable Unavailable John, J Pradeep PA Unavailable Unavailable John, J Pradeep PA Unavailable Unavailable John, J Pradeep PA Unavailable Unavailable John, J Pradeep PA Unavailable Unavailable John, J Pradeep PA Unavailable Unavailable John, J Pradeep PA Unavailable Unavailable John, J Pradeep PA Unavailable Unavailable John, J Pradeep PA Unavailable Unavailable John, J Pradeep PA Unavailable Unavailable John, J Pradeep PA Unavailable Unavailable John, J Pradeep PA Unavailable Unavailable John, J Pradeep PA Unavailable Unavailable John, J Pradeep PA Unavailable Unavailable John, J Pradeep PA Unavailable Unavailable John, J Pradeep PA Unavailable Unavailable John, J Pradeep PA Unavailable Unavailable John, J Pradeep PA Unavailable Unavailable John, J Pradeep PA Unavailable Unavailable John, J Pradeep PA Unavailable Unavailable John, J Pradeep PA Unavailable Unavailable John, J Pradeep PA Unavailable Unavailable John, J Pradeep PA Unavailable Unavailable John, J Pradeep PA Unavailable Unavailable Jhon, J Pradeep PA Unavailable Unavailable John, J Pradeep PA Unavailable Unavailable John, J Pradeep PA Unavailable Unavailable John, J Pradeep PA Unavailable Unavailable John, J Pradeep PA Unavailable Unavailable John, J Pradeep PA Unavailable Unavailable John, J Pradeep PA Unavailable Unavailable John, J Pradeep PA Unavailable Unavailable Leander, [id number] MD Johny MD Unavailable Leander, [id number] MD Johny MD Unavailable [phone] [place], [id number] MD Johny MD Unavailable [phone] [place], [id number] MD Johny MD Unavailable [phone] [place], [id number] MD Johny MD Unavailable [phone], [id number] MD Johny MD Unavailable [phone], [id number] MD Johny MD Unavailable [phone], [id number] MD Johny MD Unavailable [phone], [id number] MD Ojhny MD Unavailable [phone], [id number] MD Johny MD Unavailable Leander, [id number] MD Johny MD Unavailable [phone], [id number] MD Johny MD Unavailable [phone], [id number] MD Johny MD Unavailable Leander, [id number] MD Johny MD Unavailable [phone], [id number] MD Johny MD Unavailable Leander, [id number] MD Johny MD Unavailable Leander, [id number] MD Johny MD Unavailable Leander, [id number] MD Johny MD Unavailable Leander, [id number] MD Johny MD Unavailable Leander, [id number] MD Johny MD Unavailable Leadner, [id number] MD Johny MD Unavailable Leander, [id number] MD Johny MD Unavailable Leander, [id number] MD Johny MD Unavailable Leander, [id number] MD Johny MD Unavailable Leander, [id number] MD Johny MD Unavailable Leander, [id number] MD Johny MD Unavailable Leander, [id number] MD Johny MD Unavailable Leander, [id number] MD Johny MD Unavailable Leander, [id number] MD Johny MD Unavailable Leander, [id number] MD Johny MD Unavailable Leander, [id number] MD Johny MD Unavailable Leander, [id number] MD Johny MD Unavailable Leander, [id number] MD Johny MD Unavailable Domínguez, L Melvina RPA Unavailable Unavailable Domínguez, L Melvina RPA Unavailable Unavailable Domínguez, L Melvina RPA Unavailable Unavailable Domínguez, L Melvina RPA Unavailable Unavailable Domínguez, L Melvina RPA Unavailable Unavailable Domínguez, L Melvina RPA Unavailable Unavailable Domínguez, L Melvina RPA Unavailable Unavailable Domínguez, L Melvina RPA Unavailable Unavailable Domínguez, L Melvina RPA Unavailable Unavailable Domínguez, L Melvina RPA Unavailable Unavailable Domínguez, L Melvina RPA Unavailable Unavailable Domínguez, L Melvina RPA Unavailable Unavailable Domínguez, L Melvina RPA Unavailable Unavailable Domínguez, L Melvina RPA Unavailable Unavailable Domínguez, L Melvina RPA Unavailable Unavailable Domínguez, L Melvina RPA Unavailable Unavailable Domínguez, L Melvina RPA Unavailable Unavailable Domínguez, L Melvina RPA Unavailable Unavailable Domínguez, L Melvina RPA Unavailable Unavailable Domínguez, L Melvina RPA Unavailable Unavailable Domínguez, L Melvina RPA Unavailable Unavailable Domínguez, L Melvina RPA Unavailable Unavailable Domínguez, L Melvina RPA Unavailable Unavailable Domínguez, L Melvina RPA Unavailable Unavailable Domínguez, L Melvina RPA Unavailable Unavailable Domínguez, L Melvina RPA Unavailable Unavailable Domínguez, L Melvina RPA Unavailable Unavailable Domínguez, L Melvina RPA Unavailable Unavailable Domínguez, L Melvina RPA Unavailable Unavailable Domínguez, L Melvina RPA Unavailable Unavailable Domínguez, L Melvina RPA Unavailable Unavailable Domínguez, L Melvina RPA Unavailable Unavailable Dari RODRIGUEZ MD Unavailable Unavailable VANVALKENBURGDari MD Unavailable Unavailable VANVALKENBURGDari MD Unavailable Unavailable VANVALKENBURGDari MD Unavailable Unavailable VANVALKENDari MCCULLOUGH MD Unavailable Unavailable VANVALKENBURGDari MD Unavailable Unavailable VANVALKENBURGDari MD Unavailable Unavailable VANVALKENBURGDari MD Unavailable Unavailable VANVALKENDari MCCULLOUGH MD Unavailable Unavailable VANVALKENDari MCCULLOUGH MD Unavailable Unavailable VANVALKENDari MCCULLOUGH MD Unavailable Unavailable VANVALKENDari MCCULLOUGH MD Unavailable Unavailable VANVALKENDari MCCULLOUGH MD Unavailable Unavailable VANVALKENDari MCCULLOUGH MD Unavailable Unavailable VANVALKENDari MCCULLOUGH MD Unavailable Unavailable VANVALKENDari MCCULLOUGH MD Unavailable Unavailable VANVALKENDari MCCULLOUGH MD Unavailable Unavailable VANVALKENDari MCCULLOUGH MD Unavailable Unavailable VANVALKENDari MCCULLOUGH MD Unavailable Unavailable VANVALKENDari MCCULLOUGH MD Unavailable Unavailable VANVALKENDari MCCULLOUGH MD Unavailable Unavailable VANVALKENDari MCCULLOUGH MD Unavailable Unavailable VANVALKENDari MCCULLOUGH MD Unavailable Unavailable VANVALKENDari MCCULLOUGH MD Unavailable Unavailable VANVALKENDari MCCULLOUGH MD Unavailable Unavailable VANVALKENDari MCCULLOUGH MD Unavailable Unavailable VANVALKENDari MCCULLOUGH MD Unavailable Unavailable VANVALKENBURGDari MD Unavailable Unavailable VANVALKENDari MCCULLOUGH MD Unavailable Unavailable VANVALKENBURG, Dari LOZANO MD Unavailable Unavailable VANVALKENBURG, Dari LOZANO MD Unavailable Unavailable VANVALKENBURG, Dari LOZANO MD Unavailable Unavailable VANVALKENBURG, Dari LOZANO MD Unavailable Unavailable VANVALKENBURG, Dari LOZANO MD Unavailable Unavailable VANVALKENBURG, Dari LOZANO MD Unavailable Unavailable VANVALKENBURG, Dari LOZANO MD Unavailable Unavailable VANVALKENBURG, Dari LOZANO MD Unavailable Unavailable VANVALKENBURG, Dari LOZANO MD Unavailable Unavailable VANVALKENBURG, Dari LOZANO MD Unavailable Unavailable VANVALKENBURG, Dari LOZANO MD Unavailable Unavailable VANVALKENBURG, Dari LOZANO MD Unavailable Unavailable VANVALKENBURG, Dari LOZANO MD Unavailable Unavailable VANVALKENBURG, Dari LOZANO MD Unavailable Unavailable VANVALKENBURG, Dari LOZANO MD Unavailable Unavailable VANVALKENBURG, Dari LOZANO MD Unavailable Unavailable VANVALKENBURG, Dari LOZANO MD Unavailable Unavailable VANVALKENBURG, Dari LOZANO MD Unavailable Unavailable VANVALKENBURG, Dari LOZANO MD Unavailable Unavailable VANVALKENBURG, Dari LOZANO MD Unavailable Unavailable VANVALKENBURG, Dari LOZANO MD Unavailable Unavailable VANVALKENBURG, Dari LOZANO MD Unavailable Unavailable VANVALKENBURG, Dari LOZANO MD Unavailable Unavailable VANVALKENBURG, aDri LOZANO MD Unavailable Unavailable VANVALKENBURG, Dari LOZANO MD Unavailable Unavailable VANVALKENBURG, Dari LOZANO MD Unavailable Unavailable VANVALKENBURG, Dari LOZANO MD Unavailable Unavailable VANVALKENBURG, Dari LOZANO MD Unavailable Unavailable VANVALKENBURG, Dari LOZANO MD Unavailable Unavailable VANVALKENBURG, Dari LOZANO MD Unavailable Unavailable VANVALKENBURG, Dari LOZANO MD Unavailable Unavailable VANVALKENBURG, Dari LOZANO MD Unavailable Unavailable VANVALKENBURG, Dari LOZANO MD Unavailable Unavailable VANVALKENBURG, Dari LOZANO MD Unavailable Unavailable VANVALKENBURG, Dari LOZANO MD Unavailable Unavailable VANVALKENBURG, Dari LOZANO MD Unavailable Unavailable VANVALKENBURG, Dari LOZANO MD Unavailable Unavailable VANVALKENBURG, Dari LOZANO MD Unavailable Unavailable VANVALKENBURG, Dari LOZANO MD Unavailable Unavailable VANVALKENBURG, Dari LOZANO MD Unavailable Unavailable VANVALKENBURG, Dari LOZANO MD Unavailable Unavailable VANVALKENBURG, Dari LOZANO MD Unavailable Unavailable VANVALKENBURG, Dari LOZANO MD Unavailable Unavailable DEMARTINI M EAMON PA Unavailable Unavailable DEMARTINI M EAMON PA Unavailable Unavailable DEMARTINI M EAMON PA Unavailable Unavailable DEMARTINI M EAMON PA Unavailable Unavailable DEMARTINI M EAMON PA Unavailable Unavailable DEMARTINI M EAMON PA Unavailable Unavailable DEMARTINI, M EAMON PA Unavailable Unavailable DEMARTINI, M EAMON PA Unavailable Unavailable DEMARTINI, M EAMON PA Unavailable Unavailable DEMARTINI, M EAMON PA Unavailable Unavailable DEMARTINI, M EAMON PA Unavailable Unavailable DEMARTINI, M EAMON PA Unavailable Unavailable DEMARTINI, M EAMON PA Unavailable Unavailable DEMARTINI, M EAMON PA Unavailable Unavailable DEMARTINI, M EAMON PA Unavailable Unavailable DEMARTINI, M EAMON PA Unavailable Unavailable DEMARTINI, M EAMON PA Unavailable Unavailable DEMARTINI, M EAMON PA Unavailable Unavailable DEMARTINI, M EAMON PA Unavailable Unavailable DEMARTINI, M EAMON PA Unavailable Unavailable DEMARTINI, M EAMON PA Unavailable Unavailable DEMARTINI, M EAMON PA Unavailable Unavailable DEMARTINI, M EAMON PA Unavailable Unavailable DEMARTINI, M EAMON PA Unavailable Unavailable DEMARTINI, M EAMON PA Unavailable Unavailable DEMARTINI, M EAMON PA Unavailable Unavailable DEMARTINI, M EAMON PA Unavailable Unavailable DEMARTINI, M EAMON PA Unavailable Unavailable DEMARTINI, M EAMON PA Unavailable Unavailable DEMARTINI, M EAMON PA Unavailable Unavailable DEMARTINI, M EAMON PA Unavailable Unavailable DEMARTINI, M EAMON PA Unavailable Unavailable DEMARTINI, M EAMON PA Unavailable Unavailable DEMARTINI, M EAMON PA Unavailable Unavailable DEMARTINI, M EAMON PA Unavailable Unavailable DEMARTINI, M EAMON PA Unavailable Unavailable DEMARTINI, M EAMON PA Unavailable Unavailable DEMARTINI, M EAMON PA Unavailable Unavailable DEMARTINI, M EAMON PA Unavailable Unavailable DEMARTINI, M EAMON PA Unavailable Unavailable DEMARTINI, M EAMON PA Unavailable Unavailable DEMARTINI, M EAMON PA Unavailable Unavailable DEMARTINI, M EAMON PA Unavailable Unavailable DEMARTINI, M EAMON PA Unavailable Unavailable DEMARTINI, M EAMON PA Unavailable Unavailable Re-disclosure Warning The records that you are about to access may contain information from federally-assisted alcohol or drug abuse programs. If such information is present, then the following federally mandated warning applies: This information has been disclosed to you from records protected by federal confidentiality rules (42 CFR part 2). The federal rules prohibit you from making any further disclosure of this information unless further disclosure is expressly permitted by the written consent of the person to whom it pertains or as otherwise permitted by 42 CFR part 2. A general authorization for the release of medical or other information is NOT sufficient for this purpose. The Federal rules restrict any use of the information to criminally investigate or prosecute any alcohol or drug abuse patient.The records that you are about to access may contain highly sensitive health information, the redisclosure of which is protected by Article 27-F of the [facility] Public Health law. If you continue you may have access to information: Regarding HIV / AIDS; Provided by facilities licensed or operated by the [facility] Office of Mental Health; or Provided by the [facility] Office for People With Developmental Disabilities. If such information is present, then the following [facility] mandated warning applies: This information has been disclosed to you from confidential records which are protected by state law. State law prohibits you from making any further disclosure of this information without the specific written consent of the person to whom it pertains, or as otherwise permitted by law. Any unauthorized further disclosure in violation of state law may result in a fine or skilled nursing sentence or both. A general authorization for the release of medical or other information is NOT sufficient authorization for further disc losure. Allergies and Adverse Reactions Type Description Substance Reaction Status Data Source(s ) Propensity to adverse reactions NO KNOWN ALLERGIES NO KNOWN ALLERGIES [facility] Propensity to adverse reactions [facility] Family History Family Member Name Family Member Gender Family Member Status Date o f Status Description Data Source(s) Unknown Male Problem MEDENT ([facility]) Unknown Unknown Problem MED[facility] ([facility]) mother Unknown Male Problem MEDENT ([facility]) Encounters Encounter Providers Location Date Indications Data Source(s ) Outpatient Attender: Melvina Mcleod/Arnulfo/Christian/Blanca sales 03/02/2021 09:00:00 AM EDT MEDENT ([facility]) Unknown [address] [place] [address] 01/05/2021 12:00:00 AM EDT eCW1 ([facility]) Outpatient Referrer: EAMON SEGAL 12/23/2020 12:00: 00 AM [facility] Outpatient Attender: BLAKE RODRIGUEZ MD 12/23/2020 12: 00:00 AM [facility] Outpatient [address] [place] [address] 12/21/2020 12:00:00 AM EDT eCW1 ([facility]) Unknown [address] [facility] [place] [address] 12/21/2020 12:00:00 AM EDT eCW1 ([facility]) Outpatient [address] [facility] [place] [address] 12/14/2020 12:00:00 AM EDT eCW1 ([facility]) Outpatient Attender: [id number] [facility]abor [facility] 11/25/2020 03:09:00 PM EDT - 11/25/2020 03:10:00 PM EDT [facility] Patient discharged. Outpatient Referrer: Jose Daniel SEGAL 09/29/2020 12: 00:00 AM EDT Pain in left knee [facility] Pain in left knee Outpatient Attender: Jose Daniel SEGAL [id number] 09/29/2020 12:00:00 AM [facility] Outpatient Attender: EAMON SEGAL [id number] 09/14/2020 12:00:00 AM EDT Rheumatoid arthritis with rheumatoid factor of multiple sites without organ or systems involvement [facility] Rheumatoid arthritis with rheumatoid fac tor of multiple sites without organ or systems involvement ( [facility] [employer] [address] [place] [address] 09/03/2020 12:00:00 AM EDT eCW1 ([facility]) Outpatient Attender: JOHN liao 08/14/2020 09:10:00 AM EDT MEDENT ([facility]) Outpatient Attender: EAMON SEGAL 07/23/2020 12:00: 00 AM [facility] Outpatient Attender: EAMON SEGAL 07/17/2020 12:00: 00 AM [facility] Outpatient Attender: BLAKE RODRIGUEZ MD 07/17/2020 12: 00:00 AM [facility] Unknown [address] [facility] [place] [address] 07/15/2020 12:00:00 AM EDT eCW1 ([facility]) Outpatient Attender: [id number] Johny Tabor MD [facility] 07/07/2020 03:22:00 PM EST - 07/07/2020 03:23:00 PM EST [facility] Patient discharged. Outpatient Attender: Jose Daniel SEGAL [id number] 06/15/2020 12: 00:00 AM EST Unilateral primary osteoarthritis, left knee [facility] Unilateral primary osteoarthritis, left knee Outpatient Attender: Jose Daniel Marshall PAAttender: Pradeep SEGAL A-XXBJORT 06/08/2020 12:00:00 AM EST Pain in right knee [facility] Pain in right knee Outpatient Referrer: Pradeep SEGAL 06/08/2020 1 2:00:00 AM EST Pain in right [facility] Pain in right knee Outpatient Attender: Pradeep SEGAL 06/02/2020 12:00:0 0 AM EST [facility] Outpatient Attender: EAMON HULL PAAttender: Raghav RODRIGUEZ MD [id number] 05/27/2020 12:00:00 AM EST Other congenital valgus def ormities of feet [facility] Other congenital valgus deformities of f eet Outpatient Attender: BLAKE RODRIGUEZ MD 05/22/2020 12: 00:00 AM EST [facility] Outpatient [address] [place] [address] 05/05/2020 12:00:00 AM EST eCW1 ([facility]) Unknown [address] [facility] [place] [address] 05/05/2020 12:00:00 AM EST eCW1 ([facility]) Unknown [address] [facility] [place] [address] 05/05/2020 12:00:00 AM EST eCW1 ([facility]) Outpatient Referrer: BLAKE RODRIGUEZ MD 04/17/20 12:00:00 AM EST Pain in right foot [facility] Pain in right foot Outpatient Referrer: BLAKE RODRIGUEZ MD 04/17/20 12:00:00 AM EST Pain in right foot [facility] Pain in right foot Outpatient Attender: BLAKE RODRIGUEZ MD [id number] 04/17/2020 12:00:00 AM EST Other congenital valgus deformities of feet [facility] Other congenital valgus deformities of f eet Unknown [address] [place] [address] 04/10/2020 12:00:00 AM EST eCW1 ([facility]) Outpatient Attender: Pradeep Trinidad MD [id number] 04/06/2020 1 2:00:00 AM EST Effusion, left knee [facility] Effusion, left knee Outpatient [address] [place] [address] 02/25/2020 12:00:00 AM EDT eCW1 ([facility]) Outpatient Attender: Saad Keenan PT CPSCAORT-CPSCARHE 03:23:00 PM EDT - 02/18/2020 03:24:[facility]. [facility] Vaccine Date Status Description Data Source(s) influenza, recombinant, quadrIvalent,injectable, prese rvative free 01/28/2020 07:40:00 AM EDT completed eCW1 ([facility]) influenza, recombinant, quadrIvalent,injectable, prese rvative free 01/28/2020 07:40:00 AM EDT completed eCW1 ([facility]) influenza, recombinant, quadrIvalent,injectable, prese rvative free 01/28/2020 07:40:00 AM EDT completed eCW1 ([facility]) influenza, recombinant, quadrIvalent,injectable, prese rvative free 01/28/2020 07:40:00 AM EDT completed eCW1 ([facility]) influenza, recombinant, quadrIvalent,injectable, prese rvative free 01/28/2020 07:40:00 AM EDT completed eCW1 ([facility]) influenza, recombinant, quadrIvalent,injectable, prese rvative free 01/28/2020 07:40:00 AM EDT completed eCW1 ([facility]) influenza, recombinant, quadrIvalent,injectable, prese rvative free 01/28/2020 07:40:00 AM EDT completed eCW1 ([facility]) influenza, recombinant, quadrIvalent,injectable, prese rvative free 01/28/2020 07:40:00 AM EDT completed eCW1 ([facility]) influenza, recombinant, quadrIvalent,injectable, prese rvative free 01/28/2020 07:40:00 AM EDT completed eCW1 ([facility]) influenza, recombinant, quadrIvalent,injectable, prese rvative free 01/28/2020 07:40:00 AM EDT completed eCW1 ([facility]) influenza, recombinant, quadrIvalent,injectable, prese rvative free 01/28/2020 07:40:00 AM EDT completed eCW1 ([facility]) Medications Medication Brand Name Start Date Product Form Dose Route Admi nistrative Instructions Pharmacy Instructions Status Indications Reaction Description Data Source(s) Suprep Bowel Prep Kit Suprep Bowel Prep Kit 03/03/2021 12:00:00 AM EDT active MEDENT ([facility]) methylPREDNISolone acetate (DEPO-MEDROL) injection 80 mg 09/29/2020 10:30:00 AM EDT 80 mg Intra-articular complete d Primary osteoarthritis of left kneeRheumatoid arthritis involving multiple sites with positive rheumatoid factor 80 mg, Intra-articular, Once , On Mon09/29/20 at 1030, For 1 dose
Depo-medrol 2 cc - J1030
[facility] Primary osteoarthritis of left knee Rheumatoid arthritis involving multiple sites with positive rheumatoid factor Medication administered onsite methylPREDNISolone acetate (DEPO-MEDROL) injection 40 mg 09/14/2020 12:15:00 PM EDT 40 mg Intra-articular completed 40 mg, Intra- articular, Once, On Mon09/14/20 at 1215, For 1 dose
DEPO-MEDROL 1 cc - [id number]
[facility] Medication administered onsite Phenazopyridine hydrochloride 200 MG Delayed Release O ral Tablet Phenazopyridine HCL 08/14/2020 12:00:00 AM EDT ORAL active MEDENT ([facility]) methylPREDNISolone acetate (DEPO-MEDROL) injection 80 mg [id number] 06/15/2020 12:00:00 PM EST 80 mg Intra-articular complete d Primary osteoarthritis of left knee 80 mg, Intra-articular, Once , Mon06/15/20 at 1200, For 1 dose
Depo-medrol 2 cc - J1030
[facility] Primary osteoarthritis of left knee Medication administered onsite 6 ML HYLAN G-F 20 8 MG/ML Prefilled Syringe SYNVISC in jection 48 mg SYNVISC injection 48 mg 06/15/2020 12:00:00 PM EST 48 mg Intra-articular completed Primary osteoarthritis of left knee 48 m g, Intra-articular, Once, Mon06/15/20 at 1200, For 1 dose
48 Units - Synvisc One 18357 - J7325
[facility] Primary osteoarthritis of left knee Medication [place] [facility] [place] (DURABLE MEDICAL EQUIPMENT SEE SIG) [place] [facility] [place] [id number] 05/27/2020 12:00:00 AM EST active Use as directed. UCBL, custom "three-quarter" height solid [facility] tramadol hydrochloride 50 MG Oral Tablet Tramadol HCl 50 MG Tramadol HCl 50 MG 05/05/2020 12:00:00 AM EST 1.0 {tablet_as_needed} active Tramadol HCl 50 MG eCW1 ([facility]) Shower Chair without wheels UNK 05/05/2020 12:00:00 AM EST active Shower Chair without wheels eCW1 ([facility]) Cephalexin 500 MG Oral Tablet Cephalexin 500 MG 05/05/2020 12:00:00 AM EST 1.0 {tablet} suspended Cephalexin 500 MG eCW 1 ([facility]) Shower Chair without wheels UNK 05/05/2020 12:00:00 AM EST active Shower Chair without wheels eCW1 ([facility]) Cephalexin 500 MG Oral Tablet Cephalexin 500 MG 05/05/2020 12:00:00 AM EST 1.0 {tablet} active Cephalexin 500 MG eCW1 ([facility]) Cephalexin 500 MG Oral Tablet Cephalexin 500 MG 05/05/2020 12:00:00 AM EST 1.0 {tablet} suspended Cephalexin 500 MG eCW 1 ([facility]) tramadol hydrochloride 50 MG Oral Tablet Tramadol HCl 50 MG Tramadol HCl 50 MG 05/05/2020 12:00:00 AM EST 1.0 {tablet_as_needed} active Tramadol HCl 50 MG eCW1 ([facility]) tramadol hydrochloride 50 MG Oral Tablet Tramadol HCl 50 MG Tramadol HCl 50 MG 05/05/2020 12:00:00 AM EST 1.0 {tablet_as_needed} active Tramadol HCl 50 MG eCW1 ([facility]) Rollator Ultra-Light - Rollator Ultra-Light - 05/05/2020 12:00:[address] active Rollator Ultra-Light - eC W1 ([facility]) Cephalexin 500 MG Oral Tablet Cephalexin 500 MG 05/05/2020 12:00:00 AM EST 1.0 {tablet} active Cephalexin 500 MG eCW1 ([facility]) tramadol hydrochloride 50 MG Oral Tablet traMADol HCl 50 MG traMADol HCl 50 MG 05/05/2020 12:00:00 AM EST 1.0 {tablet_as_needed} active traMADol HCl 50 MG eCW1 ([facility]) tramadol hydrochloride 50 MG Oral Tablet traMADol HCl 50 MG Oral Tablet (ULTRAM) traMADol HCl 50 MG Oral Tablet (ULTRAM) 05/05/2020 12:00:00 AM EST active TAKE 1 TABLET BY VIC TH EVERY 8 HOURS NEEDED FOR 7 DAYS . DO NOT EXCEED 3 PER 24 HOURS [facility] Rollator Ultra-Light - Rollator Ultra-Light - 05/05/2020 12:00:[address] active Rollator Ultra-Light - eC W1 ([facility]) Cephalexin 500 MG Oral Tablet Cephalexin 500 MG 05/05/2020 12:00:00 AM EST 1.0 {tablet} active Cephalexin 500 MG eCW1 ([facility]) Cephalexin 500 MG Oral Tablet Cephalexin 500 MG 05/05/2020 12:00:00 AM EST 1.0 {tablet} suspended Cephalexin 500 MG eCW 1 ([facility]) tramadol hydrochloride 50 MG Oral Tablet Tramadol HCl 50 MG Tramadol HCl 50 MG 05/05/2020 12:00:00 AM EST 1.0 {tablet_as_needed} active Tramadol HCl 50 MG eCW1 ([facility]) Shower Chair without wheels UNK 05/05/2020 12:00:00 AM EST active Shower Chair without wheels eCW1 ([facility]) Cephalexin 500 MG Oral Tablet Cephalexin 500 MG 05/05/2020 12:00:00 AM EST 1.0 {tablet} suspended Cephalexin 500 MG eCW 1 ([facility]) Cephalexin 500 MG Oral Tablet Cephalexin 500 MG 05/05/2020 12:00:00 AM EST 1.0 {tablet} active Cephalexin 500 MG eCW1 ([facility]) Rollator Ultra-Light - Rollator Ultra-Light - 05/05/2020 12:00:[address] active Rollator Ultra-Light - eC W1 ([facility]) Rollator Ultra-Light - Rollator Ultra-Light - 05/05/2020 12:00:[address] active Rollator Ultra-Light - eC W1 ([facility]) Rollator Ultra-Light - Rollator Ultra-Light - 05/05/2020 12:00:[address] active Rollator Ultra-Light - eC W1 ([facility]) Rollator Ultra-Light - Rollator Ultra-Light - 05/05/2020 12:00:[address] active Rollator Ultra-Light - eC W1 ([facility]) tramadol hydrochloride 50 MG Oral Tablet Tramadol HCl 50 MG Tramadol HCl 50 MG 05/05/2020 12:00:00 AM EST 1.0 {tablet_as_needed} active Tramadol HCl 50 MG eCW1 ([facility]) Shower Chair without wheels UNK 05/05/2020 12:00:00 AM EST active Shower Chair without wheels eCW1 ([facility]) Shower Chair without wheels UNK 05/05/2020 12:00:00 AM EST active Shower Chair without wheels eCW1 ([facility]) Rollator Ultra-Light - Rollator Ultra-Light - 05/05/2020 12:00:[address] active Rollator Ultra-Light - eC W1 ([facility]) tramadol hydrochloride 50 MG Oral Tablet traMADol HCl 50 MG traMADol HCl 50 MG 05/05/2020 12:00:00 AM EST 1.0 {tablet_as_needed} active traMADol HCl 50 MG eCW1 ([facility]) Shower Chair without wheels UNK 05/05/2020 12:00:00 AM EST active Shower Chair without wheels eCW1 ([facility]) Cephalexin 500 MG Oral Tablet Cephalexin 500 MG 05/05/2020 12:00:00 AM EST 1.0 {tablet} suspended Cephalexin 500 MG eCW 1 ([facility]) Shower Chair without wheels UNK 05/05/2020 12:00:00 AM EST active Shower Chair without wheels eCW1 ([facility]) Rollator Ultra-Light - Rollator Ultra-Light - 05/05/2020 12:00:[address] active Rollator Ultra-Light - eC W1 ([facility]) tramadol hydrochloride 50 MG Oral Tablet traMADol HCl 50 MG traMADol HCl 50 MG 05/05/2020 12:00:00 AM EST 1.0 {tablet_as_needed} active traMADol HCl 50 MG eCW1 ([facility]) Shower Chair without wheels UNK 05/05/2020 12:00:00 AM EST active Shower Chair without wheels eCW1 ([facility]) Shower Chair without wheels UNK 05/05/2020 12:00:00 AM EST active Shower Chair without wheels eCW1 ([facility]) Rollator Ultra-Light - Rollator Ultra-Light - 05/05/2020 12:00:[address] active Rollator Ultra-Light - eC W1 ([facility]) tramadol hydrochloride 50 MG Oral Tablet traMADol HCl 50 MG traMADol HCl 50 MG 05/05/2020 12:00:00 AM EST 1.0 {tablet_as_needed} active traMADol HCl 50 MG eCW1 ([facility]) methylPREDNISolone acetate (DEPO-MEDROL) injection 80 mg [id number] 04/06/2020 04:15:00 PM EST 80 mg Intra-articular active [facility] Diclofenac Sodium 0.01 MG/MG Topical Gel Diclofenac Sodium 1 % Transdermal Gel (VOLTAREN) Diclofenac Sodium 1 % Transdermal Gel (VOLTAREN) 01/27 12:00:00 AM EDT active APPLY 1 GRAM TO AFFECTED JOINT 4 TIMES DAILY NEEDED [facility] Omeprazole 40 MG Delayed Release Oral Ca psule Omeprazole 40 MG Oral Capsule Delayed Release (PRILOSEC) Omeprazole 40 MG Oral Capsule Delayed Re lease (PRILOSEC) 01/28/2020 12:00:00 AM EDT 40 mg Oral active Take 40 mg by mouth daily [facility] Sulfasalazine 500 MG Oral Tablet sulfaSALAzine 500 MG Oral Tablet (AZULFIDINE) sulfaSALAzine 500 MG Oral Tablet (AZULFIDINE) 01/09/2019 12:00:00 AM EDT aborted TAKE 2 TABLETS BY MOUTH T WICE DAILY [facility] Methotrexate 2.5 MG Oral Tablet methotrexate 2.5 MG ta blet methotrexate 2.5 MG tablet Oral aborted Take by mouth mary ry 7 (seven) days [facility] meloxicam 7.5 MG Oral Tablet meloxicam (MOBIC) 7.5 MG tablet meloxicam (MOBIC) 7.5 MG tablet 7.5 mg Oral aborted Take 7.5 mg by mouth daily [facility] Insurance Providers Payer name Policy type / Coverage type Policy ID Covered democrat ID Covered democrat's relationship to tam Policy Tam Plan Information BCBS [facility] [id number] [place] Med[employer] Part B [id number] Family Dependent D [id number] [place] Med[place] Part B [id number] Family Dependent BS [facility] [facility] [id number] Family Dependent D [id number] [facility] Part B [id number] Family Dependent D [id number] MEDICARE A [id number] Self [id number] [place] Medicare [place] Part B [id number] Self [id number] Medicare [place] Medicare Primary [id number] Self Medicare [place] Med[place] Part B [id number] Self 0 [id number] [place] Med[place]ap Part B [id number] Self 0 [id number] MEDICARE COMPLETE [id number] SP [id number] [facility] Commercial [id number] Self [id number] [facility] Commercial [id number] Self [id number] [facility] Commercial [id number] Self [id number] [facility] MEDICARE COMPLETE G [id number] Self [id number] [facility] MEDICARE COMPLETE G [id number] Self [id number] [facility] MEDICARE COMPLETE G [id number] Self [id number] MEDICARE COMPLETE [id number] SP [id number] MEDICARE COMPLETE [id number] SP [id number] MEDICARE COMPLETE [id number] SP [id number] [facility] [id number] ANSI-Medicare Part B [id number] ANSI-Medicare Part B [id number] ANSI-Medicare Part B [id number] UNITED HEALTHCARE MEDICARE [place] [id number] S [id number] Medicare Natl Gov't [facility] Part B [id number] Self [id number] [facility] [id number] Family Dependent [id number] [facility]icare [facility]u Commercial [id number] Self [id number] MEDICARE [id number] SP [id number] A MEDICARE COMPLETE [id number] SP [id number] [employer] MEDICARE [id number] S [id number] MEDICARE COMPLETE[facility] [id number] S [id number] UNITED HEALTH MEDICARE [id number] S [id number] MEDICARE COMPLETE [id number] SP [id number] MEDICARE COMPLETE [id number] SP [id number] ANSI-Medicare Part B [id number] ANSI-Medicare Part B [id number] ANSI-Medicare Part B [id number] ANSI-Medicare Part B [id number] ANSI-Medicare Part B [id number] ANSI-Medicare Part B [id number] ANSI-Medicare Part B [id number] ANSI-Medicare Part B [id number] [employer] Medicare Commercial [id number] Self [id number] MEDICARE COMPLETE [id number] ANSI-Medicare Part B [id number] ANSI-Medicare Part B [id number] ANSI-Medicare Part B [id number] ANSI-Medicare Part B [id number] Problems, Conditions, and Diagnoses Code Display Name Description Problem Type Effective Dates Data Source(s) Z79.899 Other nursing home (current) drug therapy O THER LVN LPN (CURRENT) DRUG THERAPY Diagnosis 11/25/2020 03:09:00 PM EDT [facility] M05.742 Rheumatoid arthritis with rh eumatoid factor of left hand without organ or systems involvement RHEU ARTHRITIS W RHEU FACTOR OF LEFT BENAVIDES D W/O ORG/SYS INVOLV Diagnosis 11/25/2020 03:09:00 PM EDT [facility] M05.741 Rheumatoid arthritis with rh eumatoid factor of right hand without organ or systems involvement RHEU ARTHRITIS W RHEU FACTOR OF R HAND W /O ORG/SYS INVOLV Diagnosis 11/25/2020 03:09:00 PM EDT [facility] G89.29 Other chronic pain Other chronic pain Diagnosis 05/2020 10:11:12 AM [facility] M25.562 Pain in left knee Pain in left knee Diagnosis 09/29 10:11:12 AM [facility] M76.829 Posterior tibial tendinitis, unspecified leg Posterior tibial tendinitis, unspecified leg Diagnosis 09/14/2020 11:14:55 AM [facility] 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 Diagnosis 09/14/2020 11:14:55 AM [facility] M05.79 Rheumatoid arthritis with rh eumatoid factor of multiple sites without organ or systems involvement Rheumatoid arthritis with rheumatoid fac tor of multiple sites without organ or systems involvement Diagnosis 11:14:55 AM [facility] M17.12 Unilateral primary osteoarthritis, left knee Unilateral primary osteoarthritis, left knee Diagnosis 06/15/2020 11:18:02 AM [facility] M25.561 Pain in right knee Pain in right knee Diagnosis 11/2020 10:31:17 AM [facility] M20.11 Hallux valgus (acquired), right foot Fabio lux valgus (acquired), right foot Diagnosis 05/27/2020 02:05:18 PM [facility] M20.21 Hallux rigidus, right foot Hallux rigidus, right foot Diagnosis 05/27/2020 02:05:18 PM [facility] M06.9 Rheumatoid arthritis, unspecified Rheumatoid art hritis, unspecified Diagnosis 05/27/2020 02:05:18 PM [facility] M79.672 Pain in left foot Pain in left foot Diagnosis 04/17 11:26:56 AM [facility] M79.671 Pain in right foot Pain in right foot Diagnosis 11:26:56 AM [facility] M25.462 Effusion, left knee Effusion, left knee Diagnosis 1 06/07/2019 02:08:19 PM [facility] R26.2 [id number] Difficulty walking Problem 05/05/2020 12:00: 00 AM [place] [address] ([facility]) K21.9 [id number] Gastroesophageal ref lux disease, unspecified whether esophagitis present Problem 03/25/2020 12:00:00 AM [place] [address] ([facility]) Surgeries/Procedures Procedure Description Date Indications Data Source(s) OFFICE OUTPATIENT NEW 45 MINUTES 03/02/2021 12:00:00 A [facility] outpatient clinic visit for assessment and ma nagement of a patient Hospital Outpatient [facility]IM NJXS EA VACCINE IMMUNIZATION ADMIN EACH ADD 07/07/2020 12:00:00 AM [facility] Administration of pneumococcal vaccine 07/07/2020 12:0 0:00 AM [facility] TDAP VACCINE 7/> YR IM TDAP VACCINE 7 YRS/> IM 07/07/2020 12:00:00 AM [facility] PNEUMOCOCCAL CONJ VACCINE 13 VALENT IM PCV13 VACCINE IM 0 07/07/2020 12:00:00 AM [facility] Results ID Date Data Source [id number] 01/28/2021 04:45:00 PM [facility] Name Value Range Interpretation Code Description Data Christina rce(s) Supporting Document(s) SARS-CoV-2 RNA Resp Ql GEMMA+probe NOT DETECTED [facility] This lab was ordered by GONZALO ozuna and reported by GONZALO Nichols. ID Date Data Source TSH 12/14/2020 12:00:00 AM EDT eCW1 ([facility]) Name Value Range Interpretation Code Description Data Christina rce(s) Supporting Document(s) 2.790 0.358-3.740 THYROID STIMULATING HORM ONE eCW1 ([facility]) ID Date Data Source ANTI-MITOCHONDRIAL ANTIBODY 12/14/2020 12:00:00 AM EDT eCW1 ([facility]) Name Value Range Interpretation Code Description Data Christina rce(s) Supporting Document(s) 21.9 0.0-20.0 ANTI-MITOCHONDRIAL ANTIBO DY eCW1 ([facility]) ID Date Data Source LIPID PANEL (CARDIAC RISK) 12/14/2020 12:00:00 AM EDT eCW1 ( [facility]) Name Value Range Interpretation Code Description Data Christina rce(s) Supporting Document(s) Triglyceride [Mass/volume] in Serum or Plasma by calculation 137 <150 TRIGLYCERIDES LEVEL eCW1 ([facility]) Cholesterol [Moles/volume] in Serum or Plasma 202 <200 CHOLESTEROL LEVEL eCW1 ([facility]) Cholesterol in HDL [Moles/volume] in Serum or Plasma 43 >40 HDL CHOLESTEROL eCW1 ([facility]) 4.697 <5 CHOLESTEROL RISK RATIO eCW1 ([facility]) 159 NON-HDL-C eCW1 ([facility]) Cholesterol in LDL [Mass/volume] in Serum or Plasma by calculation 132 <100 LDL CHOLESTEROL eCW1 ([facility]) ID Date Data Source Comprehensive Metabolic Profile (CMP) 12/14/2020 12:00:00 AM EDT eCW1 ([facility]) Name Value Range Interpretation Code Description Data Christina rce(s) Supporting Document(s) 81 70-100 GLUCOSE, FASTING eCW1 ([facility]) 9 7-18 BLOOD UREA NITROGEN eCW1 ([facility]) 139 136-145 SODIUM LEVEL eCW1 ([facility]) > 60.0 >45 GLOMERULAR FILTRATION RATE eCW 1 ([facility]) 0.63 0.55-1.30 CREATININE FOR GFR eCW1 ([facility]) 109 98-107 CHLORIDE LEVEL eCW1 ([facility]) 8.6 8.8-10.2 CALCIUM LEVEL eCW1 ([facility]) 4.3 3.5-5.1 POTASSIUM SERUM eCW1 ([facility]) 24 21-32 CARBON DIOXIDE LEVEL eCW1 ([facility]) 105 45-117 ALKALINE PHOSPHATASE eCW1 ([facility]) 14 7-37 AST/SGOT eCW1 ([facility]) 18 12-78 ALT/SGPT eCW1 ([facility]) 7.1 6.4-8.2 TOTAL PROTEIN eCW1 ([facility]) 0.4 0.2-1.0 BILIRUBIN,TOTAL eCW1 ([facility]) 3.3 3.2-5.2 ALBUMIN eCW1 ([facility]) 0.9 1.2-2.2 ALBUMIN/GLOBULIN RATIO eCW1 ([facility]) ID Date Data Source CBC with Differential 12/14/2020 12:00:00 AM EDT eCW1 ([facility]) Name Value Range Interpretation Code Description Data Christina rce(s) Supporting Document(s) 5.5 4.0-10.0 WHITE BLOOD COUNT eCW1 ([facility]) 12.6 12.0-15.5 HEMOGLOBIN eCW1 ([facility]) 3.99 4.00-5.40 RED BLOOD COUNT eCW1 ([facility]) 37.7 36.0-47.0 HEMATOCRIT eCW1 ([facility]) 33.4 32.0-36.5 MEAN CORPUSCULAR HGB CONC eCW1 ([facility]) 94.5 80.0-96.0 MEAN CORPUSCULAR VOLUME e CW1 ([facility]) 31.6 27.0-33.0 MEAN CORPUSCULAR HEMOGLOB IN eCW1 ([facility]) 255 150-450 PLATELET COUNT, AUTOMATED eCW1 ([facility]) 13.5 11.5-14.5 RED CELL DISTRIBUTION WID TH eCW1 ([facility]) 33.8 24.0-44.0 LYMPH % eCW1 ([facility]) 54.5 36.0-66.0 NEUTROPHILS % eCW1 ([facility]) 7.7 2.0-8.0 MONO % eCW1 ([facility]) 3.3 0.0-3.0 EOS % eCW1 ([facility]) 0.5 0.0-1.0 BASO % eCW1 ([facility]) 3.0 1.5-8.5 NEUTROPHILS # eCW1 ([facility]) 1.9 1.5-5.0 LYMPH # eCW1 ([facility]) 0.2 0.0-0.5 EOS # eCW1 ([facility]) 0.4 0.0-0.8 MONO # eCW1 ([facility]) 0.0 0.0-0.2 BASO # eCW1 ([facility]) ID Date Data Source [id number] 09/29/2020 11:34:42 AM EDT [facility] XR KNEE 4 OR MORE VIEWS [id number] RESUL TInterpreted by:Akua Holcomb knee 4 viewsINDICATION: PainCOMPARISON: Bilateral knee radiographs 06/08/2020FINDINGS:Left knee:Moderate to severe medial compartment joint space narrowing with mild peripheral degenerative osteophytosis, unchanged. Mild patellofemoral joint space narrowing with mild superior and lateral patellar degenerative osteophytes. Small joint effusion, unchanged. No acute fracture or dislocation.Right knee:Mild medial compartment joint space narrowing on frontal view.IMPRESSION:No significant change from prior. Left knee moderate medial compartment and mild patellofemoral compartment osteoarthritis.This document has been electronically signed by Joseph Pineda MD on 09/29/2020 11:32 AM Name Value Range Interpretation Code Description Data Christina rce(s) Supporting Document(s) ID Date Data Source [id number] 09/29/2020 10:55:22 AM EDT [facility] Name Value Range Interpretation Code Description Data Christina rce(s) Supporting Document(s) Progress Note [facility] HOKNCh0hJnCBWhMq00/GAPaaJSNro1YqXDzfEMa7CFqtHCCuX8XvITT3jL8iJKI4BPtLVhYwMmQbSyGq lbm [file] uL+N6rhHofD++Jose Maria+93VevJefpGipxCDyBgzmgB2oZ8RW8Pf0GVdWWboF52ff3Tt1ZSfvONFbWahC1xSB [file] XSANCj4+NMehfCEvyBfvDGUDPqHqZUD6GQnuPBDZWa1E ID Date Data Source [id number] 09/14/2020 01:08:43 PM EDT [facility] Name Value Range Interpretation Code Description Data Christina rce(s) Supporting Document(s) Progress Note [facility] XQRGAy1nRiRVExNi60/NXGrcZYOpc2SpIDylRSs4XPucNJZzP4BvHQO4yX4bKVF1JBfTNzOaPpZzTGF0 lbm [file] HrXwS4BF7pBHGHVc2+UFfwtKNhaQgpWZBHVzQ7ORG3WEqnWEXULn4F ID Date Data Source [facility] DIGITAL / VOLODYMYR BILATERAL MAMMO SCREENING (Ultraso und if indicated) 09/03/2020 12:00:00 AM EDT eCW1 ([facility]) Name Value Range Interpretation Code Description Data Christina rce(s) Supporting Document(s) [facility] DIGITAL / VOLODYMYR BILAT ERAL MAMMO SCREENING (Ultrasound if indicated) eC1 ([facility]) ID Date Data Source [id number] 08/14/2020 09:36:00 AM EDT MEDENT ([facility]) Name Value Range Interpretation Code Description Data Christina rce(s) Supporting Document(s) Bacteria identified in Urine by Culture Laboratory test result MEDENT ([facility], [facility]) FULL REPORT IN LAB NOTES (eCW and Medent ). NO GROWTH ID Date Data Source [id number] 06/15/2020 12:03:34 PM [facility] Name Value Range Interpretation Code Description Data Christina rce(s) Supporting Document(s) Progress Note [facility] WXPTNz3mByZQHtVt83/PHBesFLMqt1EbQPygISb9BMotCVJtR7FrYDJ3kH7kNLK9DUgLXmRmMmGdWsI9 lbm [file] Victor Hugo/QW2ha3vJ0LkeH5esmjxi/LFylefk2eiTMzZ5kKT [file] /o3nhXLPc67HR5X0Gcrah++clinical trials manager+rvVe1DS6ONCfeOZOF2z8wbfdxqS3CvGnuhLfHVmgSaz7ujKV+6vnF/ [file] zTZmy4+wbBPn09p9qF/uTz43TYd/vFfXZfN+GjkrlUcSv68Y6Y6cWdcvdx8o+victor hugo/a6ouuzOp23aDB1E1 [file] ID Date Data Source [id number] 06/08/2020 04:18:[address] [facility] Name Value Range Interpretation Code Description Data Christina rce(s) Supporting Document(s) Progress Note [facility] BCUAPa4tXbOWWcMj37/RGVgaIBKjz7MhAOgzRGo0SNbdKRNzN1YaVHI0xR1iEPB8OUsRLgQhItZxFaE7 lbm [file] Bwvzyz8tbU5x6X6d2y3MTdauY/X9qU+NDUYNoNyHrfFKnTcHm1RIkixbCfj3MLI905S/jose maria+/zs654wJC [file] x662LUEJ/Victor Hugo/ioQwPiHb1MaHpl8sELV5UqSQAKwBskixAOhp2LCEJZ776xT0U90hHF+02XM4kN09a2uc [file] NqCkLaDE6IRf0AFpJ2GEH9yINcGn5FOoEmTiRSUfUgBU2KXEn= ID Date Data Source [id number] 06/08/2020 04:14:56 PM [facility] XR KNEE 4 OR MORE VIEWS [id number] RESUL TInterpreted by:Joseph Pineda MDBilateral knees 4 viewsINDICATION: Bilateral knee painCOMPARISON: 03/14/2019FINDINGS:Right knee:Mild medial compartment joint space narrowing. No joint effusion. No acute fracture or dislocation.Left knee:Moderate to severe medial compartment joint space narrowing and mild peripheral degenerative osteophytes. Small joint effusion. Mild superior and lateral patellar degenerative osteophytes, unchanged. No acute fracture or dislocation.IMPRESSION:1. Mild right knee medial compartment osteoarthritis.2. Left knee moderate medial compartment and mild patellofemoral compartment osteoarthritis.This document has been electronically signed by Joseph Pineda MD on 06/08/2020 4:12 PM Name Value Range Interpretation Code Description Data Christina rce(s) Supporting Document(s) ID Date Data Source [id number] 05/27/2020 04:36:20 PM [facility] Name Value Range Interpretation Code Description Data Christina rce(s) Supporting Document(s) Progress Note [facility] JFIBRc6oSiMDKmFo06/KMIjuBFFyp1BpGTqsNJd7FEyxVUYbT0WdGDN8sW9xIWQ0NZhCZhVsGfTaUHV8 m [file] LTFwUwDiZB7UZy5PWmY1KIF2wXYvUl7XQuPlBSDVWeSwGK9RJFr= ID Date Data Source [id number] 04/17/2020 03:15:51 PM [facility] XR ANKLE 2 VIEWS [id number] RESULTInterp reted by:Joseph Pineda MDBilateral ankles 2 views and bilateral feet 3 viewsINDICATION: Bilateral foot and ankle painCOMPARISON: Right ankle and foot radiographs 08/04/2017, bilateral ankle and foot radiographs 05/20/2015FINDINGS:Right ankle and right foot:Ankle mortise is symmetric and intact. There is diffuse decreased bone mineralization. Moderate to high-grade hallux valgus with moderate to high-grade degenerative changes of the great toe metatarsophalangeal joint including joint space narrowing, subchondral sclerosis, peripheral osteophytosis, and subchondral degenerative cystic changes including the base of the first proximal phalanx 6 mm subchondral cyst. These degenerative changes are similar to prior. Mild calcaneal heel spur. Moderate dorsal spurring at the talonavicular joint on lateral view. Severe talonavicular and moderate navicular-cuneiform joint space narrowing. No acute fracture is seen. No dislocation.Left ankle and left foot:The ankle mortise is symmetric and intact. There is diffuse decreased bone mineralization. There appear to be postsurgical changes of partial resection of the distal aspect of the great toe metatarsal and osteotomy, unchanged. Severe great toe metatarsophalangeal joint space narrowing and subchondral sclerosis and subchondral degenerative cystic change. Moderate to severe great toe interphalangeal joint and second and third PIP joint degenerative changes. Severe talonavicular and navicular cuneiform joint space narrowing with moderate degenerative osteophytosis. Small calcaneal heel spur. No acute fracture dislocation.IMPRESSION:1. Right foot moderate to high-grade hallux valgus with high-grade degenerative changes of the great toe metatarsophalangeal joint and talonavicular joint.2. Left foot prior bunion correction osteotomy. Severe degenerative changes of the great toe metatarsophalangeal joint, talonavicular joint, and navicular-cuneiform joints.This document has been electronically signed by Joseph Pineda MD on 04/17/2020 3:13 PM Name Value Range Interpretation Code Description Data Herrick Campuse(s) Supporting Document(s) ID Date Data Source [id number] 04/17/2020 03:15:51 PM [facility] XR FOOT 3 OR MORE VIEWS [id number] RESUL TInterpreted by:Joseph Pineda MDBilateral ankles 2 views and bilateral feet 3 viewsINDICATION: Bilateral foot and ankle painCOMPARISON: Right ankle and foot radiographs 08/04/2017, bilateral ankle and foot radiographs 05/20/2015FINDINGS:Right ankle and right foot:Ankle mortise is symmetric and intact. There is diffuse decreased bone mineralization. Moderate to high-grade hallux valgus with moderate to high-grade degenerative changes of the great toe metatarsophalangeal joint including joint space narrowing, subchondral sclerosis, peripheral osteophytosis, and subchondral degenerative cystic changes including the base of the first proximal phalanx 6 mm subchondral cyst. These degenerative changes are similar to prior. Mild calcaneal heel spur. Moderate dorsal spurring at the talonavicular joint on lateral view. Severe talonavicular and moderate navicular-cuneiform joint space narrowing. No acute fracture is seen. No dislocation.Left ankle and left foot:T he ankle mortise is symmetric and intact. There is diffuse decreased bone mineralization. There appear to be postsurgical changes of partial resection of the distal aspect of the great toe metatarsal and osteotomy, unchanged. Severe great toe metatarsophalangeal joint space narrowing and subchondral sclerosis and subchondral degenerative cystic change. Moderate to severe great toe interphalangeal joint and second and third PIP joint degenerative changes. Severe talonavicular and navicular cuneiform joint space narrowing with moderate degenerative osteophytosis. Small calcaneal heel spur. No acute fracture dislocation.IMPRESSION:1. Right foot moderate to high-grade hallux valgus with high-grade degenerative changes of the great toe metatarsophalangeal joint and talonavicular joint.2. Left foot prior bunion correction osteotomy. Severe degenerative changes of the great toe metatarsophalangeal joint, talonavicular joint, and navicular-cuneiform joints.This document has been electronically signed by Joseph Pineda MD on 04/17/2020 3:13 PM Name Value Range Interpretation Code Description Data Christina rce(s) Supporting Document(s) ID Date Data Source [id number] 04/17/2020 01:08:03 PM [facility] Name Value Range Interpretation Code Description Data Christina rce(s) Supporting Document(s) Progress Note [facility] FCNZIw7zFvNPVdPb95/KMAyjPAThv1GmLHmpLXn0JZleIRQkG2JkHRR0rA7zGPZ4KYgTEsZvRmFtHdZ7 lbm [file] AgICAgICAgICAgICAgICAgICAgICAgICAgICAgICAgICAgICAgICAgICAgICAgICAgICAgICAgICAgIC AgICAgICAgICAgICANCiAgICAgICAgICAgICAgICAg ICAgICAgICAgICAgICAgICAgICAgICAgICAgICAgICAgICAgICAgICAgICAgICAgICAgICAgICAgICAg ICAgICAgICAgICAgICAgICAgICAgICANCiAgICAgICAgICAgICAgICAgICAgICAgICAgICAgICAgICAg ICAgICAgICAgICAgICAgICAgICAgICAgICAgICAgIC AgICAgICAgICAgICAgICAgICAgICAgICAgICAgICAgICANCiAgICAgICAgICAgICAgICAgICAgICAgIC AgICAgICAgICAgICAgICAgICAgICAgICAgICAgICAgICAgICAgICAgICAgICAgICAgICAgICAgICAgIC AgICAgICAgICAgICAgICANCiAgICAgICAgICAgICAg ICAgICAgICAgICAgICAgICAgICAgICAgICAgICAgICAgICAgICAgICAgICAgICAgICAgICAgICAgICAg ICAgICAgICAgICAgICAgICAgICAgICAgICANCiAgICAgICAgICAgICAgICAgICAgICAgICAgICAgICAg ICAgICAgICAgICAgICAgICAgICAgICAgICAgICAgIC AgICAgICAgICAgICAgICAgICAgICAgICAgICAgICAgICAgICANCiAgICAgICAgICAgICAgICAgICAgIC AgICAgICAgICAgICAgICAgICAgICAgICAgICAgICAgICAgICAgICAgICAgICAgICAgICAgICAgICAgIC AgICAgICAgICAgICAgICAgICANCiAgICAgICAgICAg ICAgICAgICAgICAgICAgICAgICAgICAgICAgICAgICAgICAgICAgICAgICAgICAgICAgICAgICAgICAg ICAgICAgICAgICAgICAgICAgICAgICAgICAgICANCiAgICAgICAgICAgICAgICAgICAgICAgICAgICAg ICAgICAgICAgICAgICAgICAgICAgICAgICAgICAgIC AgICAgICAgICAgICAgICAgICAgICAgICAgICAgICAgICAgICAgICANCiAgICAgICAgICAgICAgICAgIC AgICAgICAgICAgICAgICAgICAgICAgICAgICAgICAgICAgICAgICAgICAgICAgICAgICAgICAgICAgIC AgICAgICAgICAgICAgICAgICAgICANCjw/aYMnC4bh xZBnxlP7P1kgUo9PVz4UNM0gl2VxGGGvZWgyrfSlHmwAOgPbMSVcOffSFbc2GQjkCP6CwCYiQ9RuC4Zn VVfyKL9BSXHgPGUslXGuPBCfCBTxAdQ3MAShAKexYV5WtXImHYtvPMYaGWBdIX1MSMMuX913vhLwYY4V Uk8KMiLlUN1lyu0VNmHjSBDlFuhLAzq6AFkbNX3LoA PkiNFzGaXzFXMHBmOuP1hxr6YmVuLjQTVIGTanJU0Pg1ZydSYlGDt+Vu0FYO8ah4HrDXalIxPfTL7kgi 5QHGaEWlCoR4XxvBcrJYRfb5voGWWvZF9ebFDzQNJ1NKFfybpjeK4jbYVwNHbzyAIvlINpKw4kAY0bKC NbMIYdQmDjASWKQJ8HKBRxMETypFArUBAaFXEVAN6W PWjjGWR9WKPmydSqvGVqYSutEB3WXZViubPvDjJdPRWYSWq+Xi4PYO2gg0OiEBxnDPQkES0ijr1IRWhM LfBjN8H5cJMxT1R8FCcpGf6KIQJtHGEnMnZwNWJIWBwvWR7NPZ8ovqX5YC6NyKMdNIKkLOStbOIyNIf1 J45eoUMtQPjaZD2FWEP+Sheryl+Fo1ZMQFeJBGuEEApWw RuQSWQTzWuO0TsK5MWu5BrY1OyIB01uDafztBsOCrpXS8WON1bQXAeIQJPEW9NiBSupR5kltXxTgLwAF CFPfOtJ24foLFfNQQwQRFhBBBsTf4ZOXGvH9VjlcEibIiqmoLcJQVhKBHSRY0LTMvaygKckGKthOivKY 37hEkqAQ1APh6LXpUsNX5cxk8PgDXyTx8QHVUtDK7F NGGjNGIfSIGyXKR4SRMoApLgUDpcHSYpKWOlYYQ6LBJlMZAaHO4VPeXsHGAlTRt6KUMwQFZoDLAbky0A CIUgTYXuJZPcQAMePDKfQRCwVCrsXJBbCPWeIWB4HYCxEHTkNR7NAeJwGGUiTDHqInOjHAYpEZQlvu5E MYCnDRCqOyGxNXIzBEGgUGYbQGckUKXvFIUjKta6EX PyFFBiPH6LAbWqGEHaAHL9RQIaCYGkMTAkgb0MNCQeBUWvEcZ8OEQlCQFeABLhOSqiKZEyVPV5VhW7WE ShUCYyCW1JZsWbUPOmTZY5JzHsSNZzSQIpqr6AYXIgLYFcGPEpEtChOARyZOEkMTikSWJpALI7IkfxVD SwOVCcES4APhEqUUZbILL7PYmwQKHaOSZdix3XQMYp ORCsXme6PlNeCHFqMDNeNOzhOYMpOJY1BHE9YMVcUVNaZX5KNxDeQRNuGWaaOFKdJOVuSDWwmj9PRKIn CATmUSYeHvPqYGBaTUAkNZfqCUQrKMR6KQH9SIZoQIDrPZ7YFhMnQNAwVVz9PayvXPCoOLQnzn9OQIFf RYYhEUe3LSSjSBSfRKYaJMwvKDTuYUDwLDAwYAGkGC UjWY8ZRcXdZMZeRkP5VQIdITYuOGDhkf8EENSvQRFxRLV3GPKhMZHcOEIiGHv0rqPngWXdAIs1PL5IQ7 FbghUsXjBWSl5Jm278QFC2WFPqIq3WX0vtJq4xPBIpKWTGCb8JBXu5CGofQbOoZDF7ZfnkKBOmOrE8PU FpNZN0RFI8DbOpRCF+UHlsJPIwRJQmQGD6AAX9JeEm AQVrTNNeTVZzTTA6XXVqYg7yWKURLo3+DCvpfOCkiYhsIAIAWaVqMLa6AFfaQGJMUt2Q ID Date Data Source [id number] 04/17/2020 01:07:43 PM [facility] Name Value Range Interpretation Code Description Data Christina rce(s) Supporting Document(s) Progress Note [facility] YPNFNc9hSiTTOcCk13/COLjeFYDkf1PkVZgcLTj8FIpkZIPiH3KjNKX3jV1xLTZ1GHoYEoUjKtFiQhB3 lbm [file] RkKEYcIjQnXGbmSCO9SMR8KVJ8KIO+UD3qMUl+Qf9Vk8JruiU6ilIhEKd0Ozc6Cl8TYSLKA7QBOq== ID Date Data Source [id number] 04/06/2020 04:09:27 PM [facility] Name Value Range Interpretation Code Description Data Christina rce(s) Supporting Document(s) Progress Note [facility] YEWNIu2cZgCRZzFt49/DHFbqGHGwy7RyTXrqVBq6DGovURDiI8BnUAF4pL9cPCX5GDiRSgAbAoAvFoX1 lbm [file] ZLCpXiBuASElDE5iDERDDd6+KBmcqSYkaEadOHWCTeP9QHC1OShmFXJFHe5Q Procedure Social History Code Duration Value Status Description Data Source(s ) Smoking 12/21/2020 12:00:00 AM EDT Former Smoker completed Former Smoker eCW1 ([facility]) Smoking 12/21/2020 12:00:00 AM EDT Former Smoker completed Former Smoker eCW1 ([facility]) Smoking 12/21/2020 12:00:00 AM EDT Former Smoker completed Former Smoker eCW1 ([facility]) Smoking 12/21/2020 12:00:00 AM EDT Former Smoker completed Former Smoker eCW1 ([facility]) Alcohol intake 09/29/2020 12:00:00 AM EDT Current non-d lisha of alcohol (finding) completed Current non-drinker of alcohol (finding) [facility] Tobacco use and exposure 09/29/2020 12:00:00 AM EDT Never used co mpleted Never used [facility] Smoking 09/29/2020 12:00:00 AM EDT Never smoker completed Never s ilker [facility] Smoking 09/03/2020 12:00:00 AM EDT Former Smoker completed Former Smoker eCW1 ([facility]) Smoking 08/06/2020 12:00:00 AM EDT Patient is a former smoker completed Patient is a former smoker MEDENT ([facility], ) Smoking 08/06/2020 12:00:00 AM EDT - 07/30/2018 12:00:00 AM EDT Patient is a former smoker completed Patient is a former smoker MEDENT ([facility], ) Alcohol intake 06/15/2020 12:00:00 AM EST Current non-d lisha of alcohol (finding) completed Current non-drinker of alcohol (finding) [facility] Alcohol intake 06/08/2020 12:00:00 AM EST Current non-d lisha of alcohol (finding) completed Current non-drinker of alcohol (finding) [facility] Smoking 05/05/2020 12:00:00 AM EST Former Smoker completed Former Smoker eCW1 ([facility]) Smoking 05/05/2020 12:00:00 AM EST Former Smoker completed Former Smoker eCW1 ([facility]) Smoking 05/05/2020 12:00:00 AM EST Former Smoker completed Former Smoker eCW1 ([facility]) Smoking 05/05/2020 12:00:00 AM EST Former Smoker completed Former Smoker eCW1 ([facility]) Alcohol intake 04/17/2020 12:00:00 AM EST Current non-d lisha of alcohol (finding) completed Current non-drinker of alcohol (finding) [facility] Alcohol intake 04/06/2020 12:00:00 AM EST Current non-d lisha of alcohol (finding) completed Current non-drinker of alcohol (finding) [facility] Smoking 03/25/2020 12:00:00 AM EST Former Smoker completed Former Smoker eCW1 ([facility]) Smoking 03/25/2020 12:00:00 AM EST Former Smoker completed Former Smoker eCW1 ([facility]) Vital Signs ID Date Data Source UNK Name Value Range Interpretation Code Description Data Source(s) Systolic blood pressure 122 mm[Hg] 122 mm[Hg] [facility] Diastolic blood pressure 78 mm[Hg] 78 mm[Hg] [facility] ([facility]) Body temperature 98.2 [degF] 98.2 [degF] [facility] ([facility]) Body height 61 [in_i] 61 [in_i] [facility] ([facility]) 5'1" Body weight 156.00 [lb_av] 156.00 [facility]_av[facility] Body mass index (BMI) [Ratio] 29.5 kg/m2 29.5 k g/m2 [facility] ([facility]) [place] body weight 105 [lb_av] 105 [lb_av] MEDEN T ([facility]) Body weight 70.762 kg 70.762 kg [facility] ([facility]) Body surface area Derived from formula 1.70 m2 1.70 m2 [facility] ([facility]) Body weight [lb_av] eCW1 ([facility]) Body weight 70.76 kg 70.76 kg eCW1 ([facility]) Body height [in_i] eCW1 ([facility]) Body mass index (BMI) [Ratio] 29.47 kg/m2 29.47 kg/m2 eCW1 ([facility]) Heart rate 73 /min 73 /min eCW1 ([facility]) Respiratory rate 18 /min 18 /min eCW1 ([facility]) Body temperature 98.4 [degF] 98.4 [degF] eCW1 ( [facility]) Systolic blood pressure 124 mm[Hg] 124 mm[Hg] e CW1 ([facility]) Diastolic blood pressure 79 mm[Hg] 79 mm[Hg] eCW1 ([facility]) Body weight 154 [lb_av] 154 [lb_av] eCW1 ([facility]) Body weight 69.85 kg 69.85 kg eCW1 ([facility]) Body height [in_i] eCW1 ([facility]) Body mass index (BMI) [Ratio] 29.09 kg/m2 29.09 kg/m2 eCW1 ([facility]) Systolic blood pressure 128 mm[Hg] 128 mm[Hg] e CW1 ([facility]) Diastolic blood pressure 72 mm[Hg] 72 mm[Hg] eCW1 ([facility]) Systolic blood pressure 126 mm[Hg] 126 mm[Hg] M EDENT ([facility], [facility]) Diastolic blood pressure 82 mm[Hg] 82 mm[Hg] MEDENT ([facility], [facility]) Heart rate 92 /min 92 /min MEDENT ([facility], [facility]) Respiratory rate 12 /min 12 /min MEDENT ( [facility], [facility]) Oxygen saturation in Arterial blood by Pulse oximetry 98 % 98 % MEDENT ([facility], [facility]) Body temperature 96.8 [degF] 96.8 [degF] MEDENT ([facility], [facility]) Body weight 150.00 [lb_av] 150.00 [lb_av] MEDEN T ([facility], [facility]) Body height 61 [in_i] 61 [in_i] MEDENT ([facility]) 5'1" Body mass index (BMI) [Ratio] 28.3 kg/m2 28.3 k g/m2 MEDENT ([facility]) Oxygen saturation in Arterial blood by Pulse oximetry 97 % 97 % [facility] ([facility]) Systolic blood pressure 146 mm[Hg] 146 mm[Hg] EDENT ([facility]) Diastolic blood pressure 88 mm[Hg] 88 mm[Hg] [facility] ([facility]) Heart rate 85 /min 85 /min [facility] ([facility]) Oxygen saturation in Arterial blood by Pulse oximetry 97 % 97 % [facility] ([facility]) Body temperature 98.2 [degF] 98.2 [degF] [facility] ([facility]) Body height 61 [in_i] 61 [in_i] [facility] ([facility]) 5'1" Body weight 154.00 [lb_av] 154.00 [lb_av] MEDEN T ([facility]) Body mass index (BMI) [Ratio] 29.1 kg/m2 29.1 k g/m2 [facility] ([facility]) Body temperature 98.2 [degF] 98.2 [degF] [facility] ([facility]) Body height 61 [in_i] 61 [in_i] [facility] ([facility]) 5'1" Body weight 154.00 [lb_av] 154.00 [lb_av] MEDEN T ([facility]) Body mass index (BMI) [Ratio] 29.1 kg/m2 29.1 k g/m2 [facility] ([facility]) [place] body weight 105 [lb_av] 105 [lb_av] MEDEN T ([facility]) Body weight 69.854 kg 69.854 kg MEDENT ([facility]) Body surface area Derived from formula 1.69 m2 1.69 m2 [facility] ([facility]) [place] body weight 105 [lb_av] 105 [lb_av] MEDEN T ([facility]) Body weight 69.854 kg 69.854 kg MED[facility] ([facility]) Body surface area Derived from formula 1.69 m2 1.69 m2 MED[facility] ([facility]) Body weight [lb_av] eCW1 ([facility]) Body height [in_i] eCW1 ([facility]) Body mass index (BMI) [Ratio] 28.53 kg/m2 28.53 kg/m2 eCW1 ([facility]) Heart rate 84 /min 84 /min eCW1 ([facility]) Respiratory rate 18 /min 18 /min eCW1 ([facility]) Body temperature 99.2 [degF] 99.2 [degF] eCW1 ( [facility]) Systolic blood pressure 126 mm[Hg] 126 mm[Hg] e CW1 ([facility]) Diastolic blood pressure 77 mm[Hg] 77 mm[Hg] eCW1 ([facility]) Body weight [lb_av] eCW1 ([facility]) Body height [in_i] eCW1 ([facility]) Body mass index (BMI) [Ratio] 27.77 kg/m2 27.77 kg/m2 eCW1 ([facility]) Heart rate 72 /min 72 /min eCW1 ([facility]) Respiratory rate 18 /min 18 /min eCW1 ([facility]) Body temperature 98.2 [degF] 98.2 [degF] eCW1 ( [facility]) Systolic blood pressure 134 mm[Hg] 134 mm[Hg] e CW1 ([facility]) Diastolic blood pressure 85 mm[Hg] 85 mm[Hg] eCW1 ([facility]) ID Date Data Source [id number] 04/17/2020 01:08:03 PM [facility] Name Value Range Interpretation Code Description Data Source(s) WEIGHT RECORDED 147 lb 147 lb [facility] Body height Measured 61 in 61 in [facility] Patient Treatment Plan of Care Planned Activity Planned Date Details Description Data Source (s) methylPREDNISolone acetate (DEPO-MEDROL) injection 80 mg 09/29/2020 10:30:00 AM [facility]ital methylPREDNISolone acetate (DEPO-MEDROL) injection 40 mg 09/14/2020 12:15:00 PM [facility] 6 ML HYLAN G-F 20 8 MG/ML Prefilled Syringe 06/15/2020 12:00:00 PM [facility] methylPREDNISolone acetate (DEPO-MEDROL) injection 80 mg 06/15/2020 12:00:00 PM [facility]spital Misc. Devices (DURABLE MEDICAL EQUIPMENT SEE SIG) XX M ISC 05/27/2020 12:00:00 AM [facility] tramadol hydrochloride 50 MG Oral Tablet 05/05/2020 12:00:00 AM [facility] Rollator Ultra-Light - 05/05/2020 12:00:00 AM EST eCW1 ([facility]) Shower Chair without wheels 05/05/2020 12:00:00 AM EST eCW1 ([facility]) Cephalexin 500 MG Oral Tablet 05/05/2020 12:00:00 AM EST eCW1 ([facility]) tramadol hydrochloride 50 MG Oral Tablet 05/05/2020 12:00:00 AM EST eCW1 ([facility]) Rollator Ultra-Light - 05/05/2020 12:00:00 AM EST eCW1 ([facility]) Shower Chair without wheels 05/05/2020 12:00:00 AM EST eCW1 ([facility]) Cephalexin 500 MG Oral Tablet 05/05/2020 12:00:00 AM EST eCW1 ([facility]) tramadol hydrochloride 50 MG Oral Tablet 05/05/2020 12:00:00 AM EST eCW1 ([facility]) Rollator Ultra-Light - 05/05/2020 12:00:00 AM EST eCW1 ([facility]) Shower Chair without wheels 05/05/2020 12:00:00 AM EST eCW1 ([facility]) Cephalexin 500 MG Oral Tablet 05/05/2020 12:00:00 AM EST eCW1 ([facility]) tramadol hydrochloride 50 MG Oral Tablet 05/05/2020 12:00:00 AM EST eCW1 ([facility]) Rollator Ultra-Light - 05/05/2020 12:00:00 AM EST eCW1 ([facility]) Shower Chair without wheels 05/05/2020 12:00:00 AM EST eCW1 ([facility]) Cephalexin 500 MG Oral Tablet 05/05/2020 12:00:00 AM EST eCW1 ([facility]) tramadol hydrochloride 50 MG Oral Tablet 05/05/2020 12:00:00 AM EST eCW1 ([facility]) methylPREDNISolone acetate (DEPO-MEDROL) injection 80 mg 04/06/2020 04:15:00 PM [facility] Omeprazole 40 MG Delayed Release Oral Capsule 01/28/2020 12:00:00 A M [facility] Diclofenac Sodium 0.01 MG/MG Topical Gel 01/28/2020 12:00:00 AM [facility] Sulfasalazine 500 MG Oral Tablet 01/09/2019 12:00:00 AM [facility] meloxicam 7.5 MG Oral Tablet [facility] Methotrexate 2.5 MG Oral Tablet [facility]
--- OUTSIDE RECORDS SUMMARY | 2021-03-17 07:16 | CCD ---
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 Name Role Phone CainYamilet Unavailable PROBLEMS Type Condition ICD9-CM Code [id number] Code Onset Dates Condition S tatus W/U Status Risk SNOMED Code Notes Problem Current smoker F17.200 Active confirmed 7717 6002 Problem Mixed hyperlipidemia 272.2 Active confirmed 859364012 Problem Pulmonary emphysema, unspecified emphysema type J4 3.9 Active confirmed 40801038 Problem Cigarette nicotine dependence without complication F17.210 Active confirmed 40389537 Problem High risk medication use Z79.899 Active confirmed 635003943900343 Problem Gastroesophageal reflux dise ase, unspecified whether esophagitis present K21.9 Active confirmed 988261286 Problem Mixed hyperlipidemia E78.2 Active confirmed 274868935 Problem Difficulty walking R26.2 Active confirmed 7 47905369 Problem Depression with anxiety F41.8 Active confirmed 180192695 Problem Rheumatoid arthritis involvi ng multiple sites with positive rheumatoid factor M05.79 Active confirmed 742569420 Problem Early menopause occurring in patient age younger than 45 years E28.319 Active confirmed 265749765 Problem Mild depression F32.0 Active confirmed 3104 33083 Problem Immunocompromised patient D89.9 Active confirmed 350318024 ALLERGIES Allergen (clinical drug ingredient) Drug/Non Drug Allergy do cumented on EMR Reaction Allergy Type Onset Date Status Wellbutrin Hives Drug Allergy Active ENCOUNTERS from 1960 to 2021-01-13 Encounter Location Date Provider Diagnosis [address] [place] [address] Dec, Yamilet Cain Positive colorectal cancer screening using Cologuard test R19.5 IMMUNIZATIONS Vaccine Route Administration Date Status Influenza 18 yrs & older Flublok Unknown Jan 28, 2020 Administered Influenza 6mo & up Fluzone Unknown Jun 15, 2016 Refus ed SOCIAL HISTORY Tobacco Use: Social History Observation Description Date Details (start date - stop date) Former Smoker Sex Assigned At : Social History Observation Description Sex Assigned At Unknown Language: Question Answer Notes Languages spoken: Jamaican Zoroastrian: Question Answer Notes Zoroastrian No alevism beliefs that would impact health care. Sexual Hx: Question Answer Notes Had sex in the last 12 months (vaginal, oral, or anal)? Yes LMP: menopause Have you ever had an STD? No with Men only Tobacco Use: Question Answer Notes Are you a: former smoker How long has it been since you last smoked? 1-5 years REASON FOR REFERRAL from 1960 to 2021-01-13 Reason +Cologuard/colon cancer scre ening|Please evaluate and treat Diagnosis 1 Positive colorectal cancer s creening using Cologuard test (R19.5) [facility] Referring Provider First Name Yamilet Referring Provider Last Name Ant Referring Provider Specialty Family Medicine Referred Provider Alvin Acevedo Referred Provider Specialty Gastroenterology Referral Priority Routine General Notes Yamilet Cain PA-C 01/12 9:28:10 PM > Please referJayne Ortega 01/13/2021 10:12:50 AM > ATTEMPTED TO CONTACT OFFICE TO SEE HOW FAR THIS WOULD BE NBOOKED OUT ( SEE ENCOUNTER) # BUSY VITAL SIGNS No information MEDICATIONS Medication SIG [...] day(s ) Active PROCEDURES No Information RESULTS No Results REASON FOR VISIT POSITIVE COLOGUARD MEDICAL (GENERAL) HISTORY Type Description Date Medical [...] Notes Treatment Notes Treatm ent Clinical Notes Dec, Positive colorectal cancer s creening using Cologuard test (ICD-10 - R19.5) PLAN OF TREATMENT Referrals Referral Date Details +Cologuard/colon cancer scre ening|Please evaluate and treatAlvin Insurance Providers Payer Name Payer Address Payer Phone Insured Name Patient Relati onship to Insured Coverage Start Date Coverage End Date MEDICARE COMPLETE [employer] [address] [address] [facility] [id number] BENJY KHAN self"
--- OUTSIDE RECORDS SUMMARY | 2021-03-17 07:16 | CCD ---
Author Author [facility] Organization [facility] Address Unknown Phone Unavailable Care Team Providers Care Beauty Advisor Name Role Phone Cain, Yamilet Unavailable PROBLEMS Type Condition ICD9-CM Code NWB14-RW Code Onset Dates Condition S tatus W/U Status Risk SNOMED Code Notes Problem Current smoker F17.200 Active confirmed 7717 6002 Problem Mixed hyperlipidemia 272.2 Active confirmed 588172760 Problem Pulmonary emphysema, unspecified emphysema type J4 3.9 Active confirmed 83784342 Problem Cigarette nicotine dependence without complication F17.210 Active confirmed 34880331 Problem High risk medication use Z79.899 Active confirmed 095861922163520 Problem Gastroesophageal reflux dise ase, unspecified whether esophagitis present K21.9 Active confirmed 851839161 Problem Mixed hyperlipidemia E78.2 Active confirmed 615440893 Problem Difficulty walking R26.2 Active confirmed 7 36625041 Problem Depression with anxiety F41.8 Active confirmed 553387107 Problem Rheumatoid arthritis involvi ng multiple sites with positive rheumatoid factor M05.79 Active confirmed 180061713 Problem Early menopause occurring in patient age younger than 45 years E28.319 Active confirmed 834375830 Problem Mild depression F32.0 Active confirmed 3104 17803 Problem Immunocompromised patient D89.9 Active confirmed 474097206 ALLERGIES Allergen (clinical drug ingredient) Drug/Non Drug Allergy do cumented on EMR Reaction Allergy Type Onset Date Status Wellbutrin Hives Drug Allergy Active ENCOUNTERS from 1960 to 2020-12-22 Encounter Location Date Provider Diagnosis [address] [place] [address] Nov, Yamilet Chison IMMUNIZATIONS Vaccine Route Administration Date Status Influenza 18 yrs & older Flublok Unknown Jan 28, 2020 Administered Influenza 6mo & up Fluzone Unknown Jun 15, 2016 Refus ed SOCIAL HISTORY Tobacco Use: Social History Observation Description Date Details (start date - stop date) Former Smoker Sex Assigned At : Social History Observation Description Sex Assigned At Unknown Language: Question Answer Notes Languages spoken: Gabonese Baptist: Question Answer Notes Baptist No yazdanism beliefs that would impact health care. Sexual [...] Information RESULTS No Results REASON FOR VISIT Cologuard Order MEDICAL (GENERAL) HISTORY Type Description Date Medical [...] No Information FUNCTIONAL STATUS No Information ASSESSMENTS No Information PLAN OF TREATMENT No Information Insurance Providers Payer Name Payer Address Payer Phone Insured Name Patient Relati onship to Insured Coverage Start Date Coverage End Date MEDICARE COMPLETE [facility] [address] [address] [facility] [id number] BENJY KHAN self
--- OUTSIDE RECORDS SUMMARY | 2021-03-17 07:16 | CCD ---
Author Author [facility] Organization [facility] Address Unknown Phone Unavailable Care Team Providers Care Hairmasters Manager Name Role Phone Cain, Yamilet Unavailable PROBLEMS Type Condition ICD9-CM Code HHT10-EQ Code Onset Dates Condition S tatus W/U Status Risk SNOMED Code Notes Problem Current smoker F17.200 Active confirmed 7717 6002 Problem Mixed hyperlipidemia 272.2 Active confirmed 165347379 Problem Pulmonary emphysema, unspecified emphysema type J4 3.9 Active confirmed 39500360 Problem Cigarette nicotine dependence without complication F17.210 Active confirmed 18403486 Problem High risk medication use Z79.899 Active confirmed 646016634989849 Problem Gastroesophageal reflux dise ase, unspecified whether esophagitis present K21.9 Active confirmed 509137387 Problem Mixed hyperlipidemia E78.2 Active confirmed 395721237 Problem Difficulty walking R26.2 Active confirmed 7 62713301 Problem Depression with anxiety F41.8 Active confirmed 002404809 Problem Rheumatoid arthritis involvi ng multiple sites with positive rheumatoid factor M05.79 Active confirmed 649498544 Problem Early menopause occurring in patient age younger than 45 years E28.319 Active confirmed 651739209 Problem Mild depression F32.0 Active confirmed 3104 81401 Problem Immunocompromised patient D89.9 Active confirmed 429432425 ALLERGIES Allergen (clinical drug ingredient) Drug/Non Drug Allergy do cumented on EMR Reaction Allergy Type Onset Date Status Wellbutrin Hives Drug Allergy Active ENCOUNTERS from 1960 to 2021-01-11 Encounter Location Date Provider Diagnosis [address] [place] [address] Nov, Yamilet Cain Colon cancer screeni ng Z12.11 IMMUNIZATIONS Vaccine Route Administration Date Status Influenza 18 yrs & older Flublok Unknown Jan 28, 2020 Administered Influenza 6mo & up Fluzone Unknown Jun 15, 2016 Refus ed SOCIAL HISTORY Tobacco Use: Social History Observation Description Date Details (start date - stop date) Former Smoker Sex Assigned At : Social History Observation Description Sex Assigned At Unknown Language: Question Answer Notes Languages spoken: Rwandan Amish: Question Answer Notes Amish No scientology beliefs that would impact health care. Sexual Hx: Question Answer Notes Had sex in the last 12 months (vaginal, oral, or anal)? Yes LMP: menopause Have you ever had an STD? No with Men only Tobacco Use: Question Answer Notes Are you a: former smoker How long has it been since you last smoked? 1-5 years REASON FOR REFERRAL No Information VITAL SIGNS Weight 156 lbs lbs Nov, Weight-kg 70.76 kg Nov, Height 61in in Nov, BMI 29.47 kg/m2 Nov, Heart Rate 73 /min Nov, Respiratory Rate 18 /min Nov, Temperature 98.4 degrees Fahrenheit Nov, Oximetry 98%ra Nov, Blood pressure systolic 124 mm Hg Nov, Blood pressure diastolic 79 mm Hg Nov, MEDICATIONS Medication SIG (Take, Route, Frequency, Duration) [...] Information RESULTS No Results REASON FOR VISIT follow up after labs MEDICAL (GENERAL) HISTORY Type Description Date Medical [...] Treatment Notes Treatm ent Clinical Notes Nov, Colon cancer screening (ICD-10 - Z12.11) PLAN OF TREATMENT Treatment Notes Test Name Order Date Cologuard (Send Out Only) 2020-12-21 Next Appt Details 3 Months Reason: Insurance Providers Payer Name Payer Address Payer Phone Insured Name Patient Relati onship to Insured Coverage Start Date Coverage End Date MEDICARE COMPLETE UNITED HE[employer] [address] [address] [facility] [phone] BENJY REINA self
--- NOTE | 2021-03-17 09:02 | ROOR ---
Patient Name: Aurora Khan Procedure Date: 03/17/2021 8:14 AM Date of : 1960 Age: 60 Room: [facility] Gender: Female Note Status: Finalized Procedure: Colonoscopy Indications: Positive Cologuard test Providers: Daniel Johnson MD Referring MD: LUZMA Mccallum pa-c Requesting Provider: Medicines: Monitored Anesthesia Care Complications: No immediate complications. Procedure: Pre-Anesthesia Assessment: - Prior to the procedure, a History and Physical was performed, and patient medications and allergies were reviewed. The patient is competent. The risks and benefits of the procedure and the sedation options and risks were discussed with the patient. All questions were answered and informed consent was obtained. Patient identification and proposed procedure were verified by the physician, the nurse and the anesthesiologist in the endoscopy suite. Mental Status Examination: alert and oriented. Airway Examination: normal oropharyngeal airway and neck mobility. Respiratory Examination: clear to auscultation. CV Examination: normal. Prophylactic Antibiotics: The patient does not require prophylactic antibiotics. Prior Anticoagulants: The patient has taken no previous anticoagulant or antiplatelet agents. ASA Grade Assessment: III - A patient with severe systemic disease. After reviewing the risks and benefits, the patient was deemed in satisfactory condition to undergo the procedure. The anesthesia plan was to use monitored anesthesia care (MAC). Immediately prior to administration of medications, the patient was re-assessed for adequacy to receive sedatives. The heart rate, respiratory rate, oxygen saturations, blood pressure, adequacy of pulmonary ventilation, and response to care were monitored throughout the procedure. The physical status of the patient was re-assessed after the procedure. The Colonoscope was introduced through the anus and advanced to the cecum, identified by appendiceal orifice and ileocecal valve. The colonoscopy was performed without difficulty. The patient tolerated the procedure well. The quality of the bowel preparation was good. Findings: The perianal and digital rectal examinations were normal. An infiltrative non-obstructing small mass was found at the hepatic flexure. The mass was partially circumferential (involving one-third of the lumen circumference). The mass measured two cm in length. In addition, its diameter measured four mm. No bleeding was present. This was biopsied with a cold jumbo forceps for histology. Area was successfully injected with 3 mL Rose ink for tattooing. Estimated blood loss was minimal. Two flat polyps were found in the splenic flexure and transverse colon. The polyps were diminutive in size. These polyps were removed with a cold snare. Resection and retrieval were complete. Estimated blood loss was minimal. A 4 mm polyp was found in the rectum. The polyp was sessile. The polyp was removed with a cold snare. Resection and retrieval were complete. Estimated blood loss was minimal. A few small-mouthed diverticula were found in the sigmoid colon. The retroflexed view of the distal rectum and anal verge was normal and showed no anal or rectal abnormalities. Impression: - Likely malignant tumor at the hepatic flexure. Biopsied. Injected. - Two diminutive polyps at the splenic flexure and in the transverse colon, removed with a cold snare. Resected and retrieved. - One 4 mm polyp in the rectum, removed with a cold snare. Resected and retrieved. - Diverticulosis in the sigmoid colon. - The distal rectum and anal verge are normal on retroflexion view. Recommendation: - Discharge patient to home (ambulatory). - Await pathology results. - Return to my office in 1 week. Procedure Code(s): --- Professional --- 63123, Colonoscopy, flexible; with removal of tumor(s), polyp(s), or other lesion(s) by snare technique 13042, Colonoscopy, flexible; with directed submucosal injection(s), any substance 02260, 59, Colonoscopy, flexible; with biopsy, single or multiple Diagnosis Code(s): --- Professional --- D49.0, Neoplasm of unspecified behavior of digestive system K63.5, Polyp of colon K62.1, Rectal polyp R19.5, Other fecal abnormalities K57.30, Diverticulosis of large intestine without perforation or abscess without bleeding CPT copyright 2019 [employer]. All rights reserved. The codes documented in this report are preliminary and upon motorbike courier review may be revised to meet current compliance requirements. Daniel Johnson MD Daniel Johnson MD 03/17/2021 9:01:43 AM Electronically signed by Daniel Johnson MD Number of Addenda: 0 Note Initiated On: 03/17/2021 8:14 AM Estimated Blood Loss: Estimated blood loss was minimal.
[2021-03-17 09:15] VITALS: BP 123/70
== END 2021-03-17 09:22 | disposition home or self-care (01) ==
LOC: M OPP 07:11
PROVIDERS: ATTEND Surgery
DX: C18.3 Malignant neoplasm of hepatic flexure (principal); D12.3 Benign neoplasm of transverse colon; K62.1 Rectal polyp; R19.5 Other fecal abnormalities; K57.30 Diverticulosis of large intestine without perforation or abscess without bleeding

== ENCOUNTER → 2021-03-23 | Outpatient (CLI) | payer MEDICARE ==
[~2021-03-23] MED LIST changes: +GASTROGRAFIN SOLUTION 30ML (Q9963) As Ordered ONE; +ISOVUE-370 76% 100ML VIAL As Ordered ONE; -NS 1,000 ML IV ONE
--- NOTE | 2021-03-23 16:32 | REP ---
INDICATION: MALIG NEOPLASM COLON/HEPATIC FLEXTURE. COMPARISON: None TECHNIQUE: Axial contrast-enhanced images from the lung bases to the pubic symphysis using oral and 100 cc Isovue 370 intravenous contrast material. Delayed images of the abdomen along with coronal and sagittal reformations obtained. This CT examination was performed using the following dose reduction techniques: Automated exposure control, adjustment of mA and/or kv according to the patient's size, and the use of iterative reconstruction technique. FINDINGS: Liver includes 5 mm hypodensity too small to characterize but likely benign cyst. No further hepatic lesions are identified. Spleen, pancreas, gallbladder, bilateral adrenal glands and kidneys are normal. The enteric system including stomach, small, and large bowel appears normal. No evidence for obstruction or acute inflammatory process. Normal terminal ileum and appendix are identified in the right lower quadrant. No obvious colonic and specifically hepatic flexure lesion is identified by CT evaluation. Pelvis demonstrates normal bladder and age-appropriate uterus/adnexa. No ascites. No free air. No intraperitoneal or retroperitoneal adenopathy. Abdominal aorta and vasculature appear normal. Musculoskeletal structures are intact and without acute osseous abnormality. IMPRESSION: No acute abdominopelvic pathology appreciated. No obvious evidence for malignancy or metastatic disease. <Electronically signed by Chalo Bills > 03/23/21 [id number]
== END ==
LOC: M RAD 13:35
PROVIDERS: ATTEND Surgery
DX: C18.3 Malignant neoplasm of hepatic flexure (principal)
CPT/HCPCS: 74177; Q9963; Q9967

== ENCOUNTER → 2021-04-01 | Outpatient (CLI) | payer MEDICARE ==
[~2021-04-01] MED LIST changes: -GASTROGRAFIN SOLUTION 30ML (Q9963) As Ordered ONE; -ISOVUE-370 76% 100ML VIAL As Ordered ONE
--- NOTE | 2021-04-01 10:36 | REP ---
INDICATION: C18.9, J43.9. COMPARISON: 03/17/2017 latest prior TECHNIQUE: PA and lateral FINDINGS: There is lung field hyperexpansion which has increased from the prior exam and seen with biapical bullous emphysematous change.. There are a few bibasilar curvilinear densities which have developed since the last exam. The pleural angles are sharp. The heart is not enlarged. The osseous structures are unchanged. IMPRESSION: Lung field hyperexpansion and likely subtle bibasilar fibrotic and/or subsegmental atelectatic change as described above. There is no evidence of acute cardiopulmonary disease. <Electronically signed by Rajeev Meehan > 04/01/21 [id number]
== END ==
LOC: M CLY 08:40
PROVIDERS: ATTEND Physician Assistant
DX: C18.9 Malignant neoplasm of colon, unspecified (principal); J43.9 Emphysema, unspecified

== ENCOUNTER → 2021-04-01 | Outpatient (REF) | payer MEDICARE ==
[~2021-04-01] MED LIST changes: +ACET-683 PO; +HUMI40KI SC; +MIRA3350 PO; +PERCOCET PO
[2021-04-01 11:19] LABS: HEMATOCRIT 37.8 % (36.0-47.0); HEMOGLOBIN 12.6 g/dl (12.0-15.5); MEAN CORPUSCULAR HEMOGLOBIN 31.7 pg (27.0-33.0); MEAN CORPUSCULAR HGB CONC 33.3 g/dl (32.0-36.5); PLATELET COUNT, AUTOMATED 244 10^3/uL (150-450); RED BLOOD COUNT 3.98 10^6/uL (4.00-5.40); WHITE BLOOD COUNT 3.7 10^3/uL (4.0-10.0)
[2021-04-01 11:45] LABS: BLOOD UREA NITROGEN 7 MG/DL (7-18); CALCIUM LEVEL 8.6 MG/DL (8.8-10.2); CARBON DIOXIDE LEVEL 25 MEQ/L (21-32); CHLORIDE LEVEL 106 MEQ/L (98-107); CREATININE FOR GFR 0.68 MG/DL (0.55-1.30); GLOMERULAR FILTRATION RATE > 60.0 (>45); GLUCOSE, FASTING 129 MG/DL (70-100); POTASSIUM SERUM 3.8 MEQ/L (3.5-5.1); SODIUM LEVEL 138 MEQ/L (136-145)
== END ==
LOC: M SFHCCLAY 08:37
PROVIDERS: ATTEND Family Medicine
DX: C18.9 Malignant neoplasm of colon, unspecified (principal)

== ENCOUNTER → 2021-04-02 | Outpatient (CLI) | payer MEDICARE ==
[~2021-04-02] MED LIST changes: -ACET-683 PO; -HUMI40KI SC
== END ==
LOC: M LABSMTC 09:19
PROVIDERS: ATTEND Anesthesiology
DX: Z01.812 Encounter for preprocedural laboratory examination (principal); Z20.822 Contact with and (suspected) exposure to COVID-19; Z23 Encounter for immunization
CPT/HCPCS: 90682; G0008; G0463; U0003

== ENCOUNTER 2021-04-07 08:30 | Inpatient (IN) | payer MEDICARE ==
[~2021-04-07] VITALS: Ht 154.9 cm; Wt 66.2 kg
[~2021-04-07 08:30] MED LIST changes: -MIRA3350 PO; -PERCOCET PO
[2021-04-21] MEDS ORDERED: metroNIDAZOLE 500 MG in IV 1 EA IV ONE (08:10)
[2021-04-21] MEDS ORDERED: LR 1,000 ML IV ONE (08:10)
[2021-04-21] MEDS ORDERED: ALVIMOPAN 12 MG CAPSULE (ENTEREG) PO ONE (08:10)
[2021-04-21] MEDS ORDERED: HEPARIN SOD (PORCINE) 5000UNITS/ML 1ML VIAL/SYRINGE SQ ONE (08:10)
[2021-04-21] MEDS ORDERED: cefoTEtan DISODIUM 2 GM in D5W MINI-BAG PLUS 50 ML IV ONE (08:10)
[2021-04-21] MEDS ORDERED: CelecoXIB 400 MG CAP PO ONE (08:10)
[2021-04-21] MEDS: BUPIVACAINE HCL 0.25% 10ML VIAL As Ordered ONE ×2 (13:06→21:00)
[2021-04-21] MEDS ORDERED: BUPIVACAINE HCL 0.25% 30ML VIAL As Ordered ONE (13:06)
[2021-04-21] MEDS ORDERED: LIDOCAINE 1% SDV 30ML VIAL As Ordered ONE (13:06)
[2021-04-21] MEDS ORDERED: BUPIVACAINE LIPOSOME/PF 1.3% 20ML VIAL (13.3MG/ML)(EXPAREL)(C9290 PER1MG) As Ordered ONE (13:07)
[2021-04-21] MEDS ORDERED: MIRA3350 PO (13:19)
[2021-04-21] MEDS ORDERED: ROCURONIUM BROMIDE 50 MG/5 ML VIAL As Ordered ONE ×2 (15:53→17:06)
[2021-04-21] MEDS ORDERED: propofoL 200 MG/20 ML VIAL As Ordered ONE (15:53)
[2021-04-21] MEDS ORDERED: fentaNYL 100 MCG/2 ML INJECTION As Ordered ONE (15:53)
[2021-04-21] MEDS ORDERED: MIDAZOLAM INJ 2MG/2ML VIAL (J2250 PER 1MG) As Ordered ONE (15:53)
[2021-04-21] MEDS ORDERED: LIDOCAINE 2% 100MG/5ML SDV (FOR ANES.) As Ordered ONE (15:53)
[2021-04-21] MEDS ORDERED: KETAMINE HCL 200 MG/20 ML VIAL As Ordered ONE (15:54)
[2021-04-21] MEDS ORDERED: dexameTHASONE 4 MG/ML 1ML VIAL (J1100 PER 1MG) As Ordered ONE (15:54)
[2021-04-21] MEDS ORDERED: ONDANSETRON 4MG/2ML VIAL As Ordered ONE (15:54)
[2021-04-21] MEDS ORDERED: LACRILUBE (AKWA TEARS) OPHTH OINT 3.5 GM As Ordered ONE (15:59)
[2021-04-21] MEDS ORDERED: HYDROmorphone HCL 2MG/ML 1ML VIAL As Ordered ONE (16:50)
[2021-04-21] MEDS ORDERED: METOCLOPRAMIDE INJ 10MG/2ML VIAL (J2765 PER 1) As Ordered ONE (17:00)
[2021-04-21] MEDS ORDERED: SUGAMMADEX SODIUM 500 MG/5 ML VIAL (BRIDION) As Ordered ONE (17:00)
[2021-04-21] MEDS ORDERED: ACETAMINOPHEN 1000MG 100ML IV BTL (OFIRMEV) (J0131 PER 10MG) As Ordered ONE (17:07)
[2021-04-21] MEDS ORDERED: LABETALOL 100MG/20ML VIAL As Ordered ONE (17:32)
[2021-04-21] MEDS ORDERED: DESFLURANE 240 ML INHALANT As Ordered ONE (18:12)
[2021-04-21] MEDS ORDERED: ACETAMINOPHEN TAB 650MG DOSE (2X325MG) PO PRN (21:10)
[2021-04-21] MEDS ORDERED: ONDANSETRON 4MG/2ML VIAL IV PRN ×2 (21:10→21:20)
[2021-04-21] MEDS ORDERED: MORPHINE 2 MG/ML 1ML VIAL (J2270) IV PRN (21:10)
[2021-04-21] MEDS ORDERED: ALBUTEROL 90 MCG/ACT 8GM HFA INHALER INH PRN (21:10)
[2021-04-21] MEDS ORDERED: PERCOCET 5MG/325MG TAB PO PRN (21:10)
[2021-04-21] MEDS ORDERED: fentaNYL 100 MCG/2 ML INJECTION IV PRN (21:20)
[2021-04-21] MEDS ORDERED: oxyCODONE 5MG TAB PO PRN (21:20)
[2021-04-21] MEDS ORDERED: LR 1,000 ML IV SCH (21:20)
[2021-04-21] MEDS ORDERED: METOCLOPRAMIDE INJ 10MG/2ML VIAL (J2765 PER 1) IV PRN (21:20)
[2021-04-21] MEDS ORDERED: HYDROMORPHONE HCL 0.5 MG/ 0.5 ML SYRINGE (J1170 PER 1) IV PRN (21:20)
[2021-04-21 22:10] VITALS: BP 136/78
[2021-04-21] MEDS: PERCOCET 5MG/325MG TAB PO PRN (22:36)
[2021-04-21] MEDS: LR 1,000 ML IV SCH (22:36)
[2021-04-21 22:40] VITALS: BP 136/77
[2021-04-21 23:10] VITALS: BP 134/75
[2021-04-22] VITALS (8 sets, daily range): BP systolic 105–131; BP diastolic 56–73
[2021-04-22] MEDS: KETOROLAC 30 MG/ML 1ML VIAL IV PRN ×2 (03:17→20:47)
[2021-04-22] MEDS: LR 1,000 ML IV SCH ×3 (05:36→20:47)
[2021-04-22 06:16] LABS: BASO % 0.1 % (0.0-1.0); HEMATOCRIT 30.8 % (36.0-47.0); HEMOGLOBIN 10.3 g/dl (12.0-15.5); LYMPH # 0.5 10^3/uL (1.5-5.0); LYMPH % 6.6 % (24.0-44.0); MEAN CORPUSCULAR HEMOGLOBIN 30.7 pg (27.0-33.0); MEAN CORPUSCULAR HGB CONC 33.4 g/dl (32.0-36.5); MEAN CORPUSCULAR VOLUME 91.9 fl (80.0-96.0); MONO # 0.3 10^3/uL (0.0-0.8); MONO % 3.5 % (2.0-8.0); NEUTROPHILS # 7.3 10^3/uL (1.5-8.5); NEUTROPHILS % 89.3 % (36.0-66.0); PLATELET COUNT, AUTOMATED 254 10^3/uL (150-450); RED BLOOD COUNT 3.35 10^6/uL (4.00-5.40); WHITE BLOOD COUNT 8.2 10^3/uL (4.0-10.0)
[2021-04-22 06:35] LABS: BLOOD UREA NITROGEN 8 MG/DL (7-18); CALCIUM LEVEL 8.5 MG/DL (8.8-10.2); CARBON DIOXIDE LEVEL 23 MEQ/L (21-32); CHLORIDE LEVEL 110 MEQ/L (98-107); CREATININE FOR GFR 0.67 MG/DL (0.55-1.30); GLOMERULAR FILTRATION RATE > 60.0 (>45); GLUCOSE, FASTING 118 MG/DL (70-100); POTASSIUM SERUM 3.9 MEQ/L (3.5-5.1); SODIUM LEVEL 140 MEQ/L (136-145)
[2021-04-22] MEDS: ENOXAPARIN 40MG/0.4ML SYRINGE (J1650 PER 10MG) SC SCH (10:05)
[2021-04-22] MEDS: FOLIC ACID 1 MG TAB PO SCH (10:05)
[2021-04-22] MEDS: ALVIMOPAN 12 MG CAPSULE (ENTEREG) PO SCH ×2 (13:43→20:47)
[2021-04-22] MEDS: PERCOCET 5MG/325MG TAB PO PRN (18:59)
[2021-04-23] MEDS: KETOROLAC 30 MG/ML 1ML VIAL IV PRN (02:50)
[2021-04-23] MEDS: LR 1,000 ML IV SCH (02:50)
[2021-04-23 06:08] VITALS: BP 120/67
[2021-04-23 06:12] LABS: BASO % 0.1 % (0.0-1.0); EOS % 0.2 % (0.0-3.0); HEMATOCRIT 28.7 % (36.0-47.0); HEMOGLOBIN 9.6 g/dl (12.0-15.5); LYMPH # 1.1 10^3/uL (1.5-5.0); LYMPH % 12.1 % (24.0-44.0); MEAN CORPUSCULAR HGB CONC 33.4 g/dl (32.0-36.5); MEAN CORPUSCULAR VOLUME 92.6 fl (80.0-96.0); MONO # 0.5 10^3/uL (0.0-0.8); MONO % 5.8 % (2.0-8.0); NEUTROPHILS # 7.2 10^3/uL (1.5-8.5); NEUTROPHILS % 81.2 % (36.0-66.0); PLATELET COUNT, AUTOMATED 206 10^3/uL (150-450); WHITE BLOOD COUNT 8.8 10^3/uL (4.0-10.0)
[2021-04-23 06:47] LABS: BLOOD UREA NITROGEN 4 MG/DL (7-18); CALCIUM LEVEL 8.3 MG/DL (8.8-10.2); CARBON DIOXIDE LEVEL 24 MEQ/L (21-32); CHLORIDE LEVEL 112 MEQ/L (98-107); CREATININE FOR GFR 0.52 MG/DL (0.55-1.30); GLOMERULAR FILTRATION RATE > 60.0 (>45); GLUCOSE, FASTING 93 MG/DL (70-100); POTASSIUM SERUM 3.5 MEQ/L (3.5-5.1); SODIUM LEVEL 142 MEQ/L (136-145)
[2021-04-23] MEDS ORDERED: IBUPROFEN 400MG TAB PO PRN (07:55)
[2021-04-23] MEDS: ALVIMOPAN 12 MG CAPSULE (ENTEREG) PO SCH (10:16)
[2021-04-23] MEDS: FOLIC ACID 1 MG TAB PO SCH (10:16)
[2021-04-23] MEDS ORDERED: PERCOCET PO (10:16)
[2021-04-23] MEDS: ENOXAPARIN 40MG/0.4ML SYRINGE (J1650 PER 10MG) SC SCH (10:17)
[2021-05-19] MEDS ORDERED: HUMI40KI SC (13:46)
[2021-06-23] MEDS ORDERED: HUMI40KI2 SC (08:37)
[2021-06-23] MEDS ORDERED: ACET-683 PO (08:37)
[2021-06-23] MEDS ORDERED: HUMI40KI SC (08:37)
== END 2021-04-23 12:45 | disposition home or self-care (01) | DRG 331 ==
LOC: M OR 04-21 12:41 → M MSPAV 04-21 22:03
PROVIDERS: ADMIT Surgery; ATTEND Surgery
PROC: 8E0W4CZ Robotic Assisted Procedure of Trunk Region, Percutaneous Endoscopic Approach (ICD-10-PCS; 2021-04-21)
PROC: 0DBF4ZZ Excision of Right Large Intestine, Percutaneous Endoscopic Approach (ICD-10-PCS; principal; 2021-04-21 14:30)
DX: C18.3 Malignant neoplasm of hepatic flexure (principal); J43.9 Emphysema, unspecified; M05.79 Rheumatoid arthritis with rheumatoid factor of multiple sites without organ or systems involvement; F32.A Depression, unspecified; F41.9 Anxiety disorder, unspecified; R53.83 Other fatigue; K21.9 Gastro-esophageal reflux disease without esophagitis; Z87.891 Personal history of nicotine dependence; Z79.899 Other long term (current) drug therapy; Z88.8 Allergy status to other drugs, medicaments and biological substances

== ENCOUNTER → 2021-04-16 | Outpatient (CLI) | payer MEDICARE ==
[~2021-04-16] MED LIST changes: +ACET-683 PO; +HUMI40KI SC; +MIRA3350 PO; +PERCOCET PO
== END ==
LOC: M LABSMTC 09:04
PROVIDERS: ATTEND Anesthesiology
DX: Z01.812 Encounter for preprocedural laboratory examination (principal); Z11.52 Encounter for screening for COVID-19

== ENCOUNTER → 2021-05-24 | Outpatient (CLI) | payer MEDICARE ==
[~2021-05-24] MED LIST changes: -ACET-683 PO
== END ==
LOC: M PLARAD 11:55
PROVIDERS: ATTEND Internal Medicine Medical Oncology
DX: C18.8 Malignant neoplasm of overlapping sites of colon (principal)
CPT/HCPCS: 78815; A9552

== ENCOUNTER → 2021-06-23 | Outpatient (CLI) | payer MEDICARE ==
[~2021-06-23] MED LIST changes: +ACET-683 PO; +GLYCCAP PO; +LIDOCAINE 1% MDV 20ML VIAL As Ordered ONE
[2021-06-23 09:30] VITALS: BP 115/63
== END ==
LOC: M IRPRO 08:19
PROVIDERS: ATTEND Internal Medicine Medical Oncology
DX: D47.9 Neoplasm of uncertain behavior of lymphoid, hematopoietic and related tissue, unspecified (principal)

== ENCOUNTER → 2022-01-12 | Outpatient (REF) | payer MEDICARE ==
[~2022-01-12] MED LIST changes: -LIDOCAINE 1% MDV 20ML VIAL As Ordered ONE
[2022-01-12 17:54] LABS: BASO % 0.7 % (0.0-1.0); EOS # 0.1 10^3/uL (0.0-0.5); EOS % 1.9 % (0.0-3.0); HEMATOCRIT 36.2 % (36.0-47.0); HEMOGLOBIN 11.8 g/dl (12.0-15.5); LYMPH # 1.5 10^3/uL (1.5-5.0); LYMPH % 26.3 % (24.0-44.0); MEAN CORPUSCULAR HEMOGLOBIN 30.4 pg (27.0-33.0); MEAN CORPUSCULAR HGB CONC 32.6 g/dl (32.0-36.5); MEAN CORPUSCULAR VOLUME 93.3 fl (80.0-96.0); MONO # 0.5 10^3/uL (0.0-0.8); MONO % 8.7 % (2.0-8.0); NEUTROPHILS # 3.6 10^3/uL (1.5-8.5); NEUTROPHILS % 62.2 % (36.0-66.0); PLATELET COUNT, AUTOMATED 291 10^3/uL (150-450); RED BLOOD COUNT 3.88 10^6/uL (4.00-5.40); WHITE BLOOD COUNT 5.8 10^3/uL (4.0-10.0)
[2022-01-12 18:46] LABS: BLOOD UREA NITROGEN 8 MG/DL (7-18); CALCIUM LEVEL 9.1 MG/DL (8.8-10.2); CARBON DIOXIDE LEVEL 27 MEQ/L (21-32); CHLORIDE LEVEL 107 MEQ/L (98-107); CREATININE FOR GFR 0.66 MG/DL (0.55-1.30); GLOMERULAR FILTRATION RATE > 60.0 (>45); GLUCOSE, FASTING 82 MG/DL (70-100); POTASSIUM SERUM 4.4 MEQ/L (3.5-5.1); SODIUM LEVEL 136 MEQ/L (136-145)
== END ==
LOC: M SFHCCLAY 09:37
PROVIDERS: ATTEND Family Medicine
DX: E78.2 Mixed hyperlipidemia (principal); J43.9 Emphysema, unspecified; M05.79 Rheumatoid arthritis with rheumatoid factor of multiple sites without organ or systems involvement; K21.9 Gastro-esophageal reflux disease without esophagitis

== ENCOUNTER → 2022-03-15 | Outpatient (REF) | payer MEDICARE ==
[2022-03-15 14:53] LABS: BASO # 0.1 10^3/uL (0.0-0.2); EOS # 0.2 10^3/uL (0.0-0.5); EOS % 2.6 % (0.0-3.0); HEMATOCRIT 37.4 % (36.0-47.0); HEMOGLOBIN 11.8 g/dl (12.0-15.5); LYMPH # 1.6 10^3/uL (1.5-5.0); LYMPH % 26.5 % (24.0-44.0); MEAN CORPUSCULAR HEMOGLOBIN 29.5 pg (27.0-33.0); MEAN CORPUSCULAR HGB CONC 31.6 g/dl (32.0-36.5); MEAN CORPUSCULAR VOLUME 93.5 fl (80.0-96.0); MONO # 0.5 10^3/uL (0.0-0.8); MONO % 9.1 % (2.0-8.0); NEUTROPHILS # 3.6 10^3/uL (1.5-8.5); NEUTROPHILS % 60.6 % (36.0-66.0); PLATELET COUNT, AUTOMATED 285 10^3/uL (150-450); WHITE BLOOD COUNT 5.9 10^3/uL (4.0-10.0)
[2022-03-15 20:20] LABS: ALBUMIN 3.3 G/DL (3.2-5.2); ALT/SGPT 9 U/L (7.0-40); BILIRUBIN,TOTAL 0.3 MG/DL (0.3-1.2); BLOOD UREA NITROGEN 11 MG/DL (9-23); CALCIUM LEVEL 8.8 MG/DL (8.3-10.6); CARBON DIOXIDE LEVEL 25 MMOL/L (20-31); CHLORIDE LEVEL 104 MMOL/L (98-107); CREATININE FOR GFR 0.61 MG/DL (0.55-1.30); GLOMERULAR FILTRATION RATE > 60.0 (>45); GLUCOSE, FASTING 55 MG/DL (74-106); POTASSIUM SERUM 4.6 MMOL/L (3.5-5.1); SODIUM LEVEL 138 MMOL/L (136-145); TOTAL PROTEIN 7.9 G/DL
== END ==
LOC: M LABDRAWC 11:53
PROVIDERS: ATTEND Nurse Practitioner Family
DX: C18.9 Malignant neoplasm of colon, unspecified (principal)

== ENCOUNTER → 2022-06-29 | Outpatient (REF) | payer MEDICARE ==
[~2022-06-29] MED LIST changes: +ASPI81TA26 PO; +HYDR200T3 PO
[2022-06-29 17:26] LABS: ALBUMIN 3.2 G/DL (3.2-5.2); ALKALINE PHOSPHATASE 125 U/L (46-116); ALT/SGPT 14 U/L (7.0-40); AST/SGOT 13 U/L (<34); BILIRUBIN,TOTAL 0.2 MG/DL (0.3-1.2); BLOOD UREA NITROGEN 10 MG/DL (9-23); CALCIUM LEVEL 9.3 MG/DL (8.3-10.6); CARBON DIOXIDE LEVEL 24 MMOL/L (20-31); CARCINOEMBRYONIC ANTIGEN < 2.0 NG/ML (<2.5); CHLORIDE LEVEL 104 MMOL/L (98-107); CREATININE FOR GFR 0.59 MG/DL (0.55-1.30); GLOMERULAR FILTRATION RATE > 60.0 (>45); GLUCOSE, FASTING 84 MG/DL (74-106); POTASSIUM SERUM 4.1 MMOL/L (3.5-5.1); SODIUM LEVEL 135 MMOL/L (136-145); TOTAL PROTEIN 7.6 G/DL (5.7-8.2)
[2022-06-29 17:31] LABS: BASO % 0.7 % (0.0-1.0); EOS # 0.1 10^3/uL (0.0-0.5); EOS % 2.2 % (0.0-3.0); HEMATOCRIT 37.4 % (36.0-47.0); HEMOGLOBIN 12.2 g/dl (12.0-15.5); LYMPH # 1.8 10^3/uL (1.5-5.0); LYMPH % 29.4 % (24.0-44.0); MEAN CORPUSCULAR HGB CONC 32.6 g/dl (32.0-36.5); MEAN CORPUSCULAR VOLUME 94.9 fl (80.0-96.0); MONO # 0.5 10^3/uL (0.0-0.8); MONO % 7.5 % (2.0-8.0); NEUTROPHILS # 3.6 10^3/uL (1.5-8.5); NEUTROPHILS % 59.9 % (36.0-66.0); PLATELET COUNT, AUTOMATED 267 10^3/uL (150-450); RED BLOOD COUNT 3.94 10^6/uL (4.00-5.40)
== END ==
LOC: M LABDRAWC 16:46
PROVIDERS: ATTEND Nurse Practitioner Family
DX: C18.9 Malignant neoplasm of colon, unspecified (principal)

== ENCOUNTER → 2022-07-05 | Outpatient (CLI) | payer MEDICARE | LOC: M LABSMTC 09:45 | PROVIDERS: ATTEND Anesthesiology | DX: Z01.818 Encounter for other preprocedural examination (principal) ==

== ENCOUNTER 2022-07-08 10:43 | Day surgery (SDC) | payer MEDICARE ==
[~2022-07-08] VITALS: Ht 154.9 cm; Wt 66.6 kg
[~2022-07-08 10:43] MED LIST changes: +NS 1,000 ML IV ONE
[2022-07-08] MEDS ORDERED: propofoL 500 MG/50 ML VIAL As Ordered ONE (12:34)
[2022-07-08] MEDS ORDERED: LIDOCAINE 2% 100MG/5ML SDV (FOR ANES.) As Ordered ONE (12:34)
[2022-07-08] MEDS ORDERED: LABETALOL 100MG/20ML VIAL As Ordered ONE (12:42)
[2022-07-08 13:09] VITALS: BP 106/61
== END 2022-07-08 13:17 | disposition home or self-care (01) ==
LOC: M OPP 10:43
PROVIDERS: ATTEND Surgery
DX: Z85.038 Personal history of other malignant neoplasm of large intestine (principal); K63.5 Polyp of colon; Z98.0 Intestinal bypass and anastomosis status; Z90.49 Acquired absence of other specified parts of digestive tract; Z87.19 Personal history of other diseases of the digestive system; G47.33 Obstructive sleep apnea (adult) (pediatric); J44.9 Chronic obstructive pulmonary disease, unspecified; Z87.891 Personal history of nicotine dependence; Z79.51 Long term (current) use of inhaled steroids; Z79.620 Long term (current) use of immunosuppressive biologic; Z92.3 Personal history of irradiation; Z92.21 Personal history of antineoplastic chemotherapy

== ENCOUNTER 2022-12-08 18:26 | Emergency (ER) | payer MEDICARE, OTHER ==
[~2022-12-08] VITALS: Ht 154.9 cm; Wt 70.9 kg
[~2022-12-08 18:26] MED LIST changes: -HYDR200T3 PO; +HYDR200T46 PO; -NS 1,000 ML IV ONE
[2022-12-08 18:28] VITALS: TEMP 97.9
[2022-12-08] MEDS ORDERED: IBUPROFEN 600MG TAB PO ONE (21:45)
[2022-12-08] MEDS ORDERED: ACETAMINOPHEN 500 MG TAB PO ONE (21:45)
[2022-12-08 21:52] VITALS: BP 135/86; O2SAT 100
== END 2022-12-08 22:40 | disposition home or self-care (01) ==
LOC: M ED 18:26
DX: S52.352A Displaced comminuted fracture of shaft of radius, left arm, initial encounter for closed fracture (principal); M19.032 Primary osteoarthritis, left wrist; W01.0XXA Fall on same level from slipping, tripping and stumbling without subsequent striking against object, initial encounter; J44.9 Chronic obstructive pulmonary disease, unspecified; M06.9 Rheumatoid arthritis, unspecified; Y92.410 Unspecified street and highway as the place of occurrence of the external cause; Z79.52 Long term (current) use of systemic steroids; Z79.899 Other long term (current) drug therapy

== ENCOUNTER 2022-12-14 08:51 | Day surgery (SDC) | payer MEDICARE ==
[~2022-12-14] VITALS: Ht 154.9 cm; Wt 70.6 kg
[~2022-12-14 08:51] MED LIST changes: +ceFAZolin SOD 2 GM in IV 1 EA IV ONE
[2022-12-14] MEDS ORDERED: LR 1,000 ML IV SCH ×2 (09:00→11:40)
[2022-12-14] MEDS ORDERED: LIDOCAINE 2% 100MG/5ML SDV (FOR ANES.) As Ordered ONE (09:01)
[2022-12-14] MEDS ORDERED: fentaNYL 100 MCG/2 ML INJECTION As Ordered ONE (09:01)
[2022-12-14] MEDS ORDERED: ACETAMINOPHEN 1000MG 100ML IV BAG As Ordered ONE (09:01)
[2022-12-14] MEDS ORDERED: KETOROLAC 60MG 2ML VIAL As Ordered ONE (09:01)
[2022-12-14] MEDS ORDERED: ONDANSETRON 4MG 2ML VIAL As Ordered ONE (09:01)
[2022-12-14] MEDS ORDERED: propofoL 200 MG/20 ML VIAL As Ordered ONE (09:01)
[2022-12-14] MEDS ORDERED: MIDAZOLAM INJ 2MG/2ML VIAL As Ordered ONE (09:01)
[2022-12-14] MEDS ORDERED: GLYCOPYRROLATE INJ 0.2 MG/ML 2 ML VIAL As Ordered ONE (09:13)
[2022-12-14] MEDS ORDERED: ACET650T15 PO (09:52)
[2022-12-14] MEDS ORDERED: fentaNYL 100 MCG/2 ML INJECTION IV PRN ×2 (09:55→11:40)
[2022-12-14] MEDS ORDERED: ROPIvacaine 0.5% 30ML VIAL PN ONE (09:55)
[2022-12-14] MEDS ORDERED: LIDOCAINE 1% SDV 5ML VIAL PN ONE (09:55)
[2022-12-14] MEDS: MIDAZOLAM INJ 2MG/2ML VIAL IV PRN (10:05)
[2022-12-14] MEDS: BACITRACIN OINTMENT 30GM TUBE As Ordered ONE (10:12)
[2022-12-14] MEDS ORDERED: ONDANSETRON 4MG 2ML VIAL IV PRN (11:40)
[2022-12-14] MEDS ORDERED: oxyCODONE 5MG TAB PO PRN (11:40)
[2022-12-14] MEDS ORDERED: PERC5TAB12 PO (11:52)
[2022-12-14 12:28] VITALS: BP 132/72
[2022-12-14 13:01] VITALS: TEMP 97.6; O2SAT 99
== END 2022-12-14 13:05 | disposition home or self-care (01) ==
LOC: M SDC 08:51
PROVIDERS: ATTEND Orthopaedic Surgery Hand Surgery
DX: S52.502A Unspecified fracture of the lower end of left radius, initial encounter for closed fracture (principal); W19.XXXA Unspecified fall, initial encounter; Y92.89 Other specified places as the place of occurrence of the external cause; Y93.9 Activity, unspecified; Y99.9 Unspecified external cause status; J44.9 Chronic obstructive pulmonary disease, unspecified; F41.9 Anxiety disorder, unspecified; Z79.51 Long term (current) use of inhaled steroids; Z79.899 Other long term (current) drug therapy; Z92.21 Personal history of antineoplastic chemotherapy; Z85.038 Personal history of other malignant neoplasm of large intestine; Z87.891 Personal history of nicotine dependence
CPT/HCPCS: 25607; 76000; C1713; J0131; J0690; J1100; J1885; J2250; J2405; J2795; J3010

== ENCOUNTER → 2022-12-23 | Outpatient (CLI) | payer MEDICARE ==
[~2022-12-23] MED LIST changes: +ACET650T15 PO; +PERC5TAB12 PO; -ceFAZolin SOD 2 GM in IV 1 EA IV ONE
== END ==
LOC: M SOG 08:59
PROVIDERS: ATTEND Physician Assistant
DX: Z47.89 Encounter for other orthopedic aftercare (principal)

== ENCOUNTER → 2023-01-12 | Outpatient (REF) | payer MEDICARE, OTHER ==
[2023-01-12 12:27] LABS: BASO % 0.7 % (0.0-1.0); EOS # 0.1 10^3/uL (0.0-0.5); EOS % 2.3 % (0.0-3.0); HEMATOCRIT 38.4 % (36.0-47.0); HEMOGLOBIN 12.7 g/dl (12.0-15.5); LYMPH # 1.5 10^3/uL (1.5-5.0); LYMPH % 25.3 % (24.0-44.0); MEAN CORPUSCULAR HGB CONC 33.1 g/dl (32.0-36.5); MEAN CORPUSCULAR VOLUME 96.7 fl (80.0-96.0); MONO # 0.5 10^3/uL (0.0-0.8); MONO % 7.6 % (2.0-8.0); NEUTROPHILS # 3.8 10^3/uL (1.5-8.5); NEUTROPHILS % 63.9 % (36.0-66.0); PLATELET COUNT, AUTOMATED 249 10^3/uL (150-450); RED BLOOD COUNT 3.97 10^6/uL (4.00-5.40)
[2023-01-12 13:02] LABS: ALBUMIN 3.4 G/DL (3.2-5.2); ALKALINE PHOSPHATASE 139 U/L (46-116); ALT/SGPT 17 U/L (7.0-40); AST/SGOT < 8 U/L (<34); BILIRUBIN,TOTAL 0.3 MG/DL (0.3-1.2); BLOOD UREA NITROGEN 9 MG/DL (9-23); CALCIUM LEVEL 8.6 MG/DL (8.3-10.6); CARBON DIOXIDE LEVEL 26 MMOL/L (20-31); CHLORIDE LEVEL 107 MMOL/L (98-107); CREATININE FOR GFR 0.64 MG/DL (0.55-1.30); GLOMERULAR FILTRATION RATE > 60.0 (>45); GLUCOSE, FASTING 72 MG/DL (74-106); POTASSIUM SERUM 3.9 MMOL/L (3.5-5.1); SODIUM LEVEL 140 MMOL/L (136-145); TOTAL PROTEIN 7.1 G/DL (5.7-8.2)
== END ==
LOC: M LABDRAWC 11:30
PROVIDERS: ATTEND Nurse Practitioner Family
DX: C18.9 Malignant neoplasm of colon, unspecified (principal)

== ENCOUNTER → 2023-01-20 | Outpatient (CLI) | payer MEDICARE, OTHER | LOC: M SOG 09:10 | PROVIDERS: ATTEND Physician Assistant | DX: Z47.89 Encounter for other orthopedic aftercare (principal) ==

== ENCOUNTER → 2023-02-20 | Outpatient (CLI) | payer MEDICARE, OTHER | LOC: M SOG 08:30 | PROVIDERS: ATTEND Physician Assistant | DX: Z47.89 Encounter for other orthopedic aftercare (principal); S52.502D Unspecified fracture of the lower end of left radius, subsequent encounter for closed fracture with routine healing ==

== ENCOUNTER → 2023-05-16 | Outpatient (REF) | payer MEDICARE, OTHER ==
[2023-05-16 12:17] LABS: BASO % 0.5 % (0.0-1.0); EOS # 0.1 10^3/uL (0.0-0.5); EOS % 1.5 % (0.0-3.0); HEMATOCRIT 38.1 % (36.0-47.0); HEMOGLOBIN 12.7 g/dl (12.0-15.5); LYMPH # 1.2 10^3/uL (1.5-5.0); LYMPH % 22.4 % (24.0-44.0); MEAN CORPUSCULAR HEMOGLOBIN 31.7 pg (27.0-33.0); MEAN CORPUSCULAR HGB CONC 33.3 g/dl (32.0-36.5); MONO # 0.4 10^3/uL (0.0-0.8); MONO % 7.8 % (2.0-8.0); NEUTROPHILS # 3.7 10^3/uL (1.5-8.5); NEUTROPHILS % 67.6 % (36.0-66.0); PLATELET COUNT, AUTOMATED 278 10^3/uL (150-450); RED BLOOD COUNT 4.01 10^6/uL (4.00-5.40); WHITE BLOOD COUNT 5.5 10^3/uL (4.0-10.0)
[2023-05-16 12:23] LABS: ALBUMIN 3.3 G/DL (3.2-5.2); ALKALINE PHOSPHATASE 128 U/L (46-116); ALT/SGPT 10 U/L (7.0-40); AST/SGOT 10 U/L (<34); BILIRUBIN,TOTAL 0.3 MG/DL (0.3-1.2); BLOOD UREA NITROGEN 11 MG/DL (9-23); CALCIUM LEVEL 8.7 MG/DL (8.3-10.6); CARBON DIOXIDE LEVEL 27 MMOL/L (20-31); CHLORIDE LEVEL 106 MMOL/L (98-107); CREATININE FOR GFR 0.62 MG/DL (0.55-1.30); GLOMERULAR FILTRATION RATE > 60.0 (>45); GLUCOSE, FASTING 53 MG/DL (74-106); POTASSIUM SERUM 4.2 MMOL/L (3.5-5.1); SODIUM LEVEL 138 MMOL/L (136-145); TOTAL PROTEIN 7.1 G/DL (5.7-8.2)
[2023-05-16 12:34] LABS: ERYTHROCYTE SEDIMENTATION RATE 57 mm/hr (0-30)
== END ==
LOC: M LABDRAWC 11:40
PROVIDERS: ATTEND Nurse Practitioner Family
DX: M05.9 Rheumatoid arthritis with rheumatoid factor, unspecified (principal); Z79.899 Other long term (current) drug therapy

== ENCOUNTER → 2023-06-07 | Outpatient (CLI) | payer MEDICARE ==
[~2023-06-07] MED LIST changes: +ISOVUE-300 61% 100ML VIAL As Ordered ONE; +LIDOCAINE 1% MDV 20ML VIAL As Ordered ONE; +methylPREDNISolone SUSP 40MG/ML 1ML VIAL (DEPO MEDROL) As Ordered ONE
== END ==
LOC: M RAD 11:53
PROVIDERS: ATTEND Physician Assistant
DX: M19.021 Primary osteoarthritis, right elbow (principal); M06.9 Rheumatoid arthritis, unspecified
CPT/HCPCS: 20605; 77002; J1030; Q9967

== ENCOUNTER → 2023-08-24 | Outpatient (CLI) | payer MEDICARE ==
[~2023-08-24] MED LIST changes: -ISOVUE-300 61% 100ML VIAL As Ordered ONE; -LIDOCAINE 1% MDV 20ML VIAL As Ordered ONE; -methylPREDNISolone SUSP 40MG/ML 1ML VIAL (DEPO MEDROL) As Ordered ONE
== END ==
LOC: M SOG 14:55
PROVIDERS: ATTEND Physician Assistant
DX: S52.572D Other intraarticular fracture of lower end of left radius, subsequent encounter for closed fracture with routine healing (principal)

== ENCOUNTER → 2023-09-13 | Outpatient (CLI) | payer MEDICARE ==
[~2023-09-13] MED LIST changes: +PROHANCE 279.3MG/ML 15ML VIAL As Ordered ONE
== END ==
LOC: M RAD 08:14
PROVIDERS: ATTEND Physician Assistant
DX: R22.32 Localized swelling, mass and lump, left upper limb (principal)
CPT/HCPCS: 73223; A9576

== ENCOUNTER 2023-11-22 10:22 | Day surgery (SDC) | payer MEDICARE ==
[~2023-11-22] VITALS: Ht 154.9 cm; Wt 72.0 kg
[~2023-11-22 10:22] MED LIST changes: +FLUO-365 PO; -FLUO20CA22 PO; +MELO7.5T35 PO; -PROHANCE 279.3MG/ML 15ML VIAL As Ordered ONE
[2023-11-22] MEDS ORDERED: LIDOCAINE 2% 100MG/5ML SDV (FOR ANES.) As Ordered ONE (10:50)
[2023-11-22] MEDS ORDERED: propofoL 200 MG/20 ML VIAL As Ordered ONE (10:50)
[2023-11-22] MEDS: NS 1,000 ML IV ONE (11:30)
[2023-11-22 12:55] VITALS: TEMP 97.5
[2023-11-22 13:20] VITALS: BP 117/66; O2SAT 98
== END 2023-11-22 13:29 | disposition home or self-care (01) ==
LOC: M OPP 10:22
PROVIDERS: ATTEND Surgery
DX: Z85.038 Personal history of other malignant neoplasm of large intestine (principal); Z86.010 Personal history of colon polyps; Z80.0 Family history of malignant neoplasm of digestive organs; K63.5 Polyp of colon; Z98.0 Intestinal bypass and anastomosis status; K25.9 Gastric ulcer, unspecified as acute or chronic, without hemorrhage or perforation; K44.9 Diaphragmatic hernia without obstruction or gangrene; K31.89 Other diseases of stomach and duodenum; K30 Functional dyspepsia; R13.10 Dysphagia, unspecified; G47.30 Sleep apnea, unspecified; Z87.891 Personal history of nicotine dependence; Z92.21 Personal history of antineoplastic chemotherapy; Z79.1 Long term (current) use of non-steroidal anti-inflammatories (NSAID); Z79.620 Long term (current) use of immunosuppressive biologic

== ENCOUNTER 2024-12-17 11:17 | Day surgery (SDC) | payer MEDICARE ==
[~2024-12-17] VITALS: Ht 154.9 cm; Wt 72.8 kg
[~2024-12-17 11:17] MED LIST changes: +ACET-1515 PO; -ACET650T15 PO; +LIDOCAINE 2% 100 MG/5 ML SDV (FOR ANES.) As Ordered ONE
[2024-12-17 13:32] VITALS: BP 100/58; O2SAT 98
== END 2024-12-17 13:46 | disposition home or self-care (01) ==
LOC: M OPP 11:17
PROVIDERS: ATTEND Surgery
DX: K63.5 Polyp of colon (principal); Z98.0 Intestinal bypass and anastomosis status; Z85.038 Personal history of other malignant neoplasm of large intestine; G47.30 Sleep apnea, unspecified; Z79.899 Other long term (current) drug therapy; J44.9 Chronic obstructive pulmonary disease, unspecified